=== PATIENT | male | born 1940 | race Caucasian/White ===

== ENCOUNTER 2017-06-22 14:23 | Emergency (ER) | payer MEDICARE, OTHER ==
[2017-06-22 15:12] VITALS: BP 150/56
--- NOTE | 2017-06-22 15:16 | UC ---
Respiratory Complaint HPI - HPI Summary HPI Summary: 77 YEAR OLD MALE WITH A HISTORY OF CHF/SOB/AFIB PRESENTS WITH COMPLAINS OF SEVERE SOB. - History of Current Complaint Chief Complaint: UCRespiratory Stated Complaint: SOB HX COPD CHF Time Seen by Provider: 06/22/17 15:15 Hx Obtained From: Patient Onset/Duration: Sudden Onset Severity Initially: Moderate Severity Currently: Moderate Pain Scale Used: 0-10 Numeric - 5 - Allergies/Home Medications Allergies/Adverse Reactions: Allergies Allergy/AdvReac Type Severity Reaction Status Date / Time No Known Allergies Allergy Verified 06/22/17 15:07 Home Medications: Home Medications Metoprolol Tartrate TAB* [Lopressor TAB*] 50 mg PO DAILY 06/22/17 [History Confirmed 06/22/17] PMH/Surg Hx/FS Hx/Imm Hx Previously Healthy: Yes - Surgical History Surgical History: None - Social History Alcohol Use: None Substance Use Type: None Smoking Status (MU): Former Smoker Review of Systems Constitutional: Negative Skin: Negative Eyes: Negative ENT: Negative Respiratory: Shortness Of Breath Cardiovascular: Negative Gastrointestinal: Negative Genitourinary: Negative Motor: Negative Neurovascular: Negative Musculoskeletal: Negative Neurological: Negative Psychological: Negative All Other Systems Reviewed And Are Negative: Yes Physical Exam Triage Information Reviewed: Yes Appearance: Ill-Appearing Vital Signs: Initial Vital Signs Temp 36.4 C 06/22/17 15:07 Pulse 81 06/22/17 15:07 Resp 17 06/22/17 15:07 BP 150/56 06/22/17 15:07 Pulse Ox 94 06/22/17 15:07 Vital Signs Reviewed: Yes Eye Exam: Normal ENT Exam: Normal Dental Exam: Normal Neck exam: Normal Neck: Positive: 1 Respiratory: Positive: Respiratory distress Cardiovascular Exam: Normal Abdominal Exam: Normal Musculoskeletal Exam: Normal Neurological Exam: Normal Psychological Exam: Normal Skin Exam: Normal UC Diagnostic Evaluation - Laboratory O2 Sat by Pulse Oximetry: 94 Respiratory Course/Dx - Differential Dx/Diagnosis Provider Diagnoses: CHF EXACERBATION Discharge - Discharge Plan Condition: Guarded Disposition: [facility] Patient Education Materials: Heart Failure (ED) Referrals: No Primary Care Phys,NOPCP [Primary Care Provider] - Additional Instructions: PATIENT WILL GO TO [facility] FOR CHF EXACERBATION.
== END 2017-06-22 15:55 | disposition short-term general hospital (02) ==
LOC: UCEAST 14:23
DX: I50.9 Heart failure, unspecified (principal); Z87.891 Personal history of nicotine dependence
CPT/HCPCS: 93005; 99203; G0463

== ENCOUNTER 2017-06-22 16:37 | Inpatient (IN) | payer MEDICARE, OTHER ==
--- NOTE | 2017-06-22 18:10 | RAD ---
INDICATION: Shortness of breath. History of "valve repair" December 2016. COMPARISON: None. TECHNIQUE: Single AP portable view of the chest was obtained. FINDINGS: Image quality is compromised due to the relative inferiority of a portable chest x-ray. There appears to be a prostatic aortic valve in place. There is mild cardiomegaly. There is density obscuring the bilateral lung bases with blunting of the bilateral costophrenic angles. The pulmonary vascular appears engorged and indistinct. Visualized bones are normal for the patient's age. IMPRESSION: Radiographic findings are most indicative of pulmonary edema and vascular congestion possibly with small bibasilar pleural effusions.
[2017-06-22 18:23] LABS: Hematocrit 37 % (42-52); Mean Corpuscular HGB Conc 33 g/dl (31-36); Mean Corpuscular Hemoglobin 26 pg (27-31); Mean Corpuscular Volume 81 fL (80-94); Mean Platelet Volume 9 um3 (7.4-10.4); Red Blood Count 4.55 10^6/ul (4.0-5.4); Red Cell Distribution Width 17 % (10.5-15); White Blood Count 6.4 10^3/ul (3.5-10.8)
[2017-06-22] MEDS ORDERED: Furosemide IV* 10 MG/ML VIAL (40 MG) IV ONE (18:29)
[2017-06-22] MEDS ORDERED: Nitroglycerin 2% OINT* 1 GM PAK TOPICAL ONE (18:29)
[2017-06-22 18:40] LABS: Albumin 3.8 g/dL (3.2-5.2); BUN/Creatinine Ratio 29.7 (8-20); Calcium 9.3 mg/dL (8.6-10.3); EGFR African American 77.4 (>60); EGFR Non-African American 60.2 (>60); Globulin 3.2 g/dL (2-4); Total Bilirubin 0.7 mg/dL (0.2-1.0)
[2017-06-22 18:41] LABS: Troponin I 0.01 ng/mL (<0.04)
[2017-06-22] MEDS ORDERED: Ondansetron INJ* 2 MG/ML VIAL IV PRN (19:15)
[2017-06-22] MEDS ORDERED: Albuterol 2.5 MG/3 ML NEB.SOL* (0.083%) INH PRN (19:15)
[2017-06-22] MEDS ORDERED: Acetaminophen TAB* 325 MG PO PRN (19:15)
[2017-06-22] MEDS ORDERED: Dextrose 50% Syringe 50 ML* 25 GM/50 ML SYRINGE IV PUSH PRN (19:19)
[2017-06-22] MEDS: predniSONE TAB* 20 MG PO SCH (20:23)
[2017-06-22] MEDS ORDERED: Iohexol 350* (CONTRAST) 500 ML MDV IV ONE (20:52)
--- NOTE | 2017-06-22 20:53 | HP ---
HISTORY AND PHYSICAL: DATE OF ADMISSION: 06/22/17 PRIMARY CARE PROVIDER: None. ATTENDING PHYSICIAN WHILE IN THE HOSPITAL: Elijah Smith MD * (reported dictated by Haile Bobo NP). CHIEF COMPLAINT: 1. Shortness of breath. 2. Chest tightness. HISTORY OF PRESENT ILLNESS: Mr. Story is a 77-year-old male patient, who has a history of atrial fibrillation, history of diabetes, hyperlipidemia, hypertension, CHF, and history of COPD. He comes into the ER today stating that the last 2 days he has had constant chest pressure, tightness. He states he has been noticing that he has been more winded with exertion. He states that his legs seem to be a little bit more swollen than the baseline. He states that he has not had any vomiting or diarrhea. He does admit to having a cough off and on. No fevers or chills. He describes his chest tightness not getting any worse with taking a deep breath. He does state that last spring he did undergo a valve repair, he is unsure of which one and he unfortunately got all of medical care in [facility]. He has not established with any providers up here yet, so we are limited in getting medical information. He is a poor historian. He denies any vomiting or diarrhea. Denies any abdominal discomfort, but the patient was concerned today. He came into the ER, he was evaluated, there was concern for possible CHF exacerbations and we were asked to evaluate for admission. PAST MEDICAL HISTORY: Significant for: 1. Atrial fibrillation. 2. COPD. 3. Diabetes. 4. Hypertension. 5. Hyperlipidemia. 6. History of CHF. PAST SURGICAL HISTORY: He has had a valve repair at [facility] and [place], we will try to get those. He has had a tonsillectomy. ALLERGIES TO MEDICATIONS: Include no known drug allergies. HOME MEDICATIONS: Include metoprolol 50 mg daily. FAMILY HISTORY: Mother had a history of heart disease in her 70s and father had a history of heart disease in the 90s. SOCIAL HISTORY: He is a former smoker. He does not drink alcohol. Surrogate decision maker is his . REVIEW OF SYSTEMS: There is no documented fever. He denied having any significant weight change. There was no double vision. He denies having any rhinorrhea. No sore throat. No thyroid enlargement. There was chest pain per my HPI. No orthopnea. There is no nocturnal dyspnea. There is chest discomfort. There is no abdominal pain, no nausea, no vomiting, no dysuria, no frequency. No seizure. No loss of consciousness. No pruritus and no skin ulceration. Review of 14 systems completed, all others negative. PHYSICAL EXAMINATION GENERAL: At this time, Mr. Story is a 77-year-old male patient. He is sitting in the ER stretcher. He does not appear to be in any acute distress. He is awake. He is alert. He is oriented x3. VITAL SIGNS: His blood pressure 183/78, his blood pressure now is noted to be 130/70. His heart rate was 81, respirations 20, O2 saturation 95%, temperature 97.7. HEENT: Head is atraumatic, normocephalic. Eyes: EOMs intact. Sclerae anicteric and not pale. Throat: Oral mucosa appears to be moist. No oropharyngeal erythema. NECK: Supple. LUNGS: He had wheezing noted throughout interestingly. No crackles. No rhonchi. HEART: Sounds S1, S2. Irregularly irregular rate. No murmurs, rubs or gallops. ABDOMEN: Soft, flat, nontender. Bowel sounds present. EXTREMITIES: Pulses 2+ throughout. No peripheral edema. NEUROLOGIC: He is awake, alert, and oriented x3. No gross focal deficits. SKIN: Intact. LABORATORY DATA/DIAGNOSTIC STUDIES: WBC is 6.4, RBC 4.55, hemoglobin 12.0, hematocrit 37, platelet count 216,000. Sodium 138, potassium 4, chloride 104, bicarbonate 27, BUN 35, creatinine 1.18, glucose 126, lactic 0.8, calcium 9.3, total bilirubin 0.7. AST 13, ALT 7, alkaline phosphatase 121. Troponin 0.01. BNP 251, albumin 3.8. He did have a chest x-ray today, impression: Radiographic findings are mostly negative for any edema or vascular congestion, possibly small basilar effusions. The x-ray does show what appears to be aortic valve prosthetic. There are no infiltrates. He did have an EKG obtained today. Unfortunately, I do not have a previous one for comparison. It did show atrial fibrillation, rate 85, no ST elevation or T- wave inversions. Old medical records limited. ASSESSMENT AND PLAN: Mr. Story is a 77-year-old male patient coming into the ER today with complaints of progressive worsening shortness of breath, also in addition to this having chest discomfort over the last 3 days. He was evaluated in the ED, there was concern for congestive heart failure exacerbation. We were asked to evaluate for admission. He will be admitted under observation status for: 1. Shortness of breath. Again, at this point on exam he has a significant amount of wheeze in both lungs. He does have a history of chronic obstructive pulmonary disease. It has been getting progressively worse the last 3 days. I am actually giving him steroids and nebs, he did get a dose of Lasix here in the ED. I am going to check an echo to see what his EF is doing, check his LV function, and I am actually going to put him on nebs, steroids, holding on antibiotics, I am going to check a procalcitonin and he was diuresed down here and we will see how he responds, and we will place him on telemetry. 2. Chest pain. Again, this could be related to the chronic obstructive pulmonary disease exacerbation. Checking a D-dimer, will cycle his troponins. I was going to order a stress test; however, he is wheezing on exam, so I do not think that is a good idea. When he is stable, this could be done outpatient. 3. Atrial fibrillation, he is on Lopressor, we will continue. May need to consider changing the Lopressor to something like Cardizem for rate control; however, we will continue to follow and see how he tolerates. 4. Chronic obstructive pulmonary disease. Again, I think he has an exacerbation. We will put him on nebs, Dulera and steroids. 5. Diabetes. He states he does not take medications for this. I did put him on a sliding scale for the time being. 6. Hypertension. We will continue his metoprolol. 7. Hyperlipidemia, not on any medications at this point. We will monitor. 8. History of congestive heart failure. Again, he did get some Lasix here in the ED. We will see how he responds. 9. DVT prophylaxis. He will be placed on heparin subcu. 10. Code status, full code. 11. Fluids, electrolytes, nutrition. He can have a heart-healthy diet. TIME SPENT: Time spent on this admission was 60 minutes, greater than half time was spent [id number] with the patient obtaining my history and physical, other half of the time was spent going over the plan of care with the patient and implementing the plan of care. I did discuss plan of care with my attending, Dr. Smith, he is in agreement. HAILE BOBO, ROSA [id number]/[facility] #: [id number] ADARSH
[2017-06-22] MEDS: Ferrous Sulfate TAB* 325 MG PO SCH (21:57)
[2017-06-22] MEDS: Heparin VIAL(*) 5000 UNITS/ML VIAL (FIVE THOUSAND) SUBCUT SCH (21:57)
--- NOTE | 2017-06-22 22:29 | RAD ---
INDICATION: Shortness of breath and chest pain COMPARISON: Same day chest x-ray TECHNIQUE: Axial source images were acquired following the administration of 83 mL Omnipaque [address] angiographic technique. Coronal and sagittal reconstructed images were constructed and reviewed. FINDINGS: There there are no filling defects in the pulmonary arteries to indicate acute pulmonary embolic disease. The right mainstem pulmonary artery measures 3.1 cm in diameter, a mildly enlarged measurement. There are mild diffuse centrilobular emphysematous changes. The lungs are otherwise grossly clear. There is a small right-sided pleural effusion. The heart is normal in size. There is trace pericardial effusion. A prostatic aortic valve is noted in position. There is no mediastinal, hilar, or axillary lymphadenopathy. Degenerative changes of the thoracic spine includes loss of intervertebral disc height and anterior marginal osteophyte formation. Limited views of the upper abdomen show no abnormalities. IMPRESSION: 1. No CT of evidence of pulmonary embolism. 2. Small right-sided pleural effusion. 3. Additional chronic, degenerative and iatrogenic findings described in body the report.
[2017-06-22] MEDS: Albuterol/Ipratropium NEB.SOL* Albuterol 2.5 MG/Ipratropium 0.5 MG 3 ML INH SCH (22:57)
[2017-06-22] MEDS: Mometasone/Formoter 200/5 MDI INH SCH (22:57)
[2017-06-23] MEDS ORDERED: hydrALAZINE IV* 20 MG/ML VIAL IV SLOW PU ONE ×2 (00:34→03:00)
[2017-06-23] MEDS: Albuterol/Ipratropium NEB.SOL* Albuterol 2.5 MG/Ipratropium 0.5 MG 3 ML INH SCH ×6 (03:35→23:24)
[2017-06-23 04:39] LABS: Hematocrit 38 % (42-52); Hemoglobin 12.5 g/dl (14.0-18.0); Mean Corpuscular HGB Conc 33 g/dl (31-36); Mean Corpuscular Hemoglobin 26 pg (27-31); Mean Corpuscular Volume 80 fL (80-94); Mean Platelet Volume 9 um3 (7.4-10.4); Red Blood Count 4.76 10^6/ul (4.0-5.4); Red Cell Distribution Width 17 % (10.5-15); White Blood Count 6.5 10^3/ul (3.5-10.8)
[2017-06-23 04:55] LABS: Calcium 9.3 mg/dL (8.6-10.3); EGFR African American 71.8 (>60); EGFR Non-African American 55.8 (>60); Potassium 4.3 mmol/L (3.5-5.0)
[2017-06-23] MEDS: Heparin VIAL(*) 5000 UNITS/ML VIAL (FIVE THOUSAND) SUBCUT SCH ×3 (05:34→21:45)
[2017-06-23] MEDS: Mometasone/Formoter 200/5 MDI INH SCH ×2 (08:24→19:52)
[2017-06-23] MEDS: Insulin LISPRO* 1 UNITS UNIT SUBCUT SCH ×3 (08:36→18:09)
[2017-06-23] MEDS: Aspirin EC Low Dose* 81 MG TAB.EC PO SCH (08:42)
[2017-06-23] MEDS: Calcitriol CAP* 0.25 MCG PO SCH (08:42)
[2017-06-23] MEDS: predniSONE TAB* 20 MG PO SCH (08:43)
[2017-06-23] MEDS: Ferrous Sulfate TAB* 325 MG PO SCH ×3 (08:43→21:45)
[2017-06-23] MEDS: Isosorbide Mononitrate ER TAB* 60 MG PO SCH (08:43)
[2017-06-23] MEDS: CMCS: Epleronone (NF) 25 MG TAB PO SCH (08:43)
[2017-06-23] MEDS: Furosemide TAB* 40 MG PO SCH ×2 (08:43→15:35)
[2017-06-23] MEDS: Atorvastatin* 10 MG TAB PO SCH (08:43)
[2017-06-23] MEDS: Metoprolol Tartrate TAB* 50 mg PO SCH (08:44)
[2017-06-23] MEDS ORDERED: Perflutren Lipid Microsphere* 3 ML VIAL ONE (10:42)
--- NOTE | 2017-06-23 12:47 | PN ---
Subjective Date of Service: 06/23/17 Interval History: Patient seen this morning. Reports feeling fairly in terms of breathing at the moment, however, states he had some episodes overnight where it was difficult to breathe. He reports his LE swelling is a bit worse than normal but not by much. Is not sure what medications he is on at home, says his is bringing them in. Just moved to [place] in April and has upcoming appts but has not yet established with physicians in the area. Says he has O2 at home and uses it as needed, has needed it ATC in the past. Family History: Unchanged from Admission Social History: Unchanged from Admission Past Medical History: Unchanged from Admission Objective Active Medications: Acetaminophen (Tylenol Tab*) 650 mg PO Q4H PRN Albuterol (Ventolin 2.5 Mg/3 Ml Neb.Amber*) 2.5 mg INH Q4H PRN Albuterol/Ipratropium (Duoneb (Albuterol 2.5 Mg/Ipratropium 0.5 Mg)) 1 neb INH [id number] AWAKE [facility] Aspirin (Aspirin Ec Low Dose*) 81 mg PO DAILY [facility] Atorvastatin Calcium (Lipitor*) 10 mg PO DAILY [facility] Calcitriol (Rocaltrol Cap*) 0.25 mcg PO DAILY [facility] Dextrose (D50w Syringe 50 Ml*) 12.5 gm IV PUSH .FOR FS < 60 - SS PRN Eplerenone (Inspra (Nf)) 25 mg PO DAILY [facility] Ferrous Sulfate (Ferrous Sulfate Tab*) 325 mg PO TID [facility] Furosemide (Lasix Tab*) 40 mg PO 0800,1600 [facility] Heparin Sodium (Porcine) (Heparin Vial(*)) 5,000 units SUBCUT Q8HR [facility] Insulin Human Lispro (Humalog*) 0 units SUBCUT AC [facility] Isosorbide Mononitrate (Imdur Er Tab*) 120 mg PO DAILY [facility] Metoprolol Tartrate (Lopressor Tab*) 50 mg PO DAILY [facility] Mometasone Furoate/Formoterol Fumar (Dulera 200/5 Mdi*) 2 puff INH BID [facility] Ondansetron HCl (Zofran Inj*) 4 mg IV Q6H PRN Prednisone (Deltasone Tab*) 40 mg PO DAILY WITH MEAL [facility] Vital Signs 06/22/17 06/22/17 06/22/17 19:56 23:01 23:02 Temperature 97.8 F Pulse Rate 85 82 Respiratory 18 20 Rate Blood Pressure 146/53 (mmHg) O2 Sat by Pulse 96 98 98 Oximetry 06/22/17 06/23/17 06/23/17 23:37 02:38 02:46 Temperature 97.7 F 98.1 F Pulse Rate 85 102 Respiratory 20 22 Rate Blood Pressure 182/78 180/59 182/70 (mmHg) O2 Sat by Pulse 97 95 Oximetry 06/23/17 12:06 Temperature 97.9 F Pulse Rate 79 Respiratory 20 Rate Blood Pressure 140/59 (mmHg) O2 Sat by Pulse 95 Oximetry Oxygen Devices in Use Now: Nasal Cannula - 2L Appearance: Elderly, M, sitting in bed in NAD Eyes: No Scleral Icterus Ears/Nose/Mouth/Throat: Mucous Membranes Moist Neck: NL Appearance and Movements; NL JVP Respiratory: Symmetrical Chest Expansion and Respiratory Effort, - - Wheezing in lower lung haji, L>R, do not appreciate much rales Cardiovascular: RRR, - - RICK Abdominal: NL Sounds; No Tenderness; No Distention Lymphatic: No Cervical Adenopathy Extremities: - - B/L LE ankle edema Skin: No Rash or Ulcers Neurological: Alert and Oriented x 3 Result Diagrams: 06/23/17 04:22 06/23/17 04:22 Microbiology and Other Data: Microbiology 06/22/17 20:25 Legionella Urinary Antigen - Final Urine Negative Legionella Streptococcus pneumoniae Ag Screen - Final Negative S. pneumo Antigen Assess/Plan/Problems-Billing Assessment: COPD exacerbation in a 77 yo M with hx of HTN, HLD, AFib, COPD, ?CHF, ?valve repair - Patient Problems (1) COPD exacerbation Current Visit: Yes Comment: Suspect this is the cause of the SOB, not CHF exacerbation. Continue PO Prednisone, nebs, dulera. Wean O2 as able. (2) Chest pain Current Visit: Yes Comment: Trops negative x 3, may benefit from outpatient stress test (3) Afib Current Visit: Yes Comment: Continue Metoprolol. Unclear if patient is on AC, will check meds once brings them in (4) CHF (congestive heart failure) Current Visit: Yes Comment: Echo pending. Does not seem to be in an exacerbation, received IV Lasix in the ED. For now continue Metoprolol, PO Lasix , Imdur, Eplerenone (5) DVT prophylaxis Current Visit: Yes Comment: HSQ
--- NOTE | 2017-06-23 17:44 | ECHO ---
Patient: JAYA RODRIGUES [facility] Rec#: [id number] : 1940 Date: 06/23/2017 Age: 77y Height: 182.88 cm / 72.0 in Weight: 104.33 kg / 229.9 lbs Sex: M BSA: 2.26 Room#: 433 Admit Date#: 06/22/2017 Type: Inpatient Referring: Elijah Smith MD Reading: Emil Garcia DO Powertrain Control Systems Engineer: Yuki Rodriguez [facility] Transthoracic Echocardiogram Indication: SOB/CHF BP: 151/61 HR: 75 Rhythm: NSR Findings History: A-fib,COPD,DM,HTN,CHF,? aortic valve replacement/?repair( procedure done in a [facility] hospital no info in chart) Technical Comments: The study is technically difficult. Definity used for image enhancement. The study is technically limited due to patient body habitus. The study is technically limited due to the patient's history of COPD. Left Ventricle: The left ventricular chamber size is mildly dilated. Mild concentric left ventricular hypertrophy is observed. There is normal left ventricular systolic function. The estimated ejection fraction is greater than 65%. The assessment of diastolic function is non-diagnostic. Left Atrium: The left atrium is moderately dilated. Right Ventricle: Moderator Band present. The right ventricular cavity size is normal. The right ventricular global systolic function is mildly reduced. Right Atrium: The right atrium is mildly dilated. Aortic Valve: A bio-prosthetic aortic valve is present. by history that is not well visualized. The bio-prosthetic aortic valve appears to be functioning normally. Mitral Valve: The mitral valve leaflets are moderately thickened.calcified chordae tendinae and mildly calcified mitral annulus and mitral leaflets. There is mild mitral regurgitation. There is no evidence of mitral stenosis. Tricuspid Valve: The tricuspid valve leaflets are normal. There is no evidence of tricuspid valve regurgitation. Unable to estimate the right ventricular systolic pressure. There is no tricuspid stenosis. Pulmonic Valve: The pulmonic valve appears normal. There is no evidence of pulmonic regurgitation. There is no pulmonic stenosis. Pericardium: There is no significant pericardial effusion. Aorta: There is no dilatation of the ascending aorta. The aortic arch is not well visualized. The aortic root is not well visualized. Pulmonary Artery: The main pulmonary artery appears normal. Venous: The venous system is not well visualized. Contrast: Definity was used to optimize study. 4ml used. Intravenous contrast was used to enhance endocardial border definition. Conclusions The study is technically difficult. Definity used for image enhancement. The left ventricular chamber size is mildly dilated. Mild concentric left ventricular hypertrophy is observed. There is normal left ventricular systolic function. The estimated ejection fraction is greater than 65%. The left atrium is moderately dilated. The right ventricular cavity size is normal. The right ventricular global systolic function is mildly reduced. A bio-prosthetic aortic valve is present by history that is not well visualized. Based on doppler evaluation there is no significant bioprosthetic dysfunction. Unable to estimate the right ventricular systolic pressure. No prior studies available for comparison at time of interpretation. Measurements Name Value Normal Range RVIDd (AP) 2D 2.9 cm (0.9 - 2.6) RVDdMajor (2D) 3.4 cm (2.2 - 4.4) RAd ISD 4CH 6.7 cm (3.4 - 4.9) RA (A4C)W 4.1 cm (2.9 - 4.6) IVSd (2D) 1.1 cm (0.6 - 1) LVPWd (2D) 1.2 cm (0.6 - 1) LVIDd (2D) 5.9 cm (3.6 - 5.4) LVIDs (2D) 4.3 cm - LV FS (2D) 27 % (25 - 45) Aortic Annulus 1.9 cm (1.4 - 2.6) Ao root diameter (2D) 3.1 cm (2.1 - 3.5) LA dimension (AP) 2D 4.5 cm (2.3 - 3.8) LAd ISD 4CH 6.1 cm (2.9 - 5.3) LA ISD 4CH W 4.9 cm (2.5 - 4.5) Name Value Normal Range LA ESV SP 4CH (A/L) 118 ml - LA ESV SP 2CH (A/L) 36 ml - LA ESV BP (A/L) 76 ml - LA ESV BP (A/L) index 33.81 ml/m2 - LA ESV SP 4CH (MOD) 103 ml - LA ESV SP 2CH (MOD) 36 ml - Name Value Normal Range MV E-wave Vmax 1.4 m/sec - MV deceleration time 264 msec - MV A-wave Vmax 0.4 m/sec - MV E:A ratio 3.89 ratio - LV septal e' Vmax 0.07 m/sec - LV lateral e' Vmax 0.07 m/sec - LV E:e' septal ratio 20 ratio - LV E:e' lateral ratio 20 ratio - Name Value Normal Range AV Vmax 2.5 m/sec - AV VTI 51.7 cm - AV peak gradient 24.94 mmHg - AV mean gradient 11.67 mmHg - LVOT diameter 2.1 cm - LVOT Vmax 1.2 m/sec - LVOT VTI 28.3 cm - LVOT peak gradient 6.15 mmHg - LVOT mean gradient 3.59 mmHg - SV LVOT 94 ml - LUBNA (continuity Vmax) 1.7 cm2 - LUBNA (continuity VTI) 1.9 cm2 - Name Value Normal Range PV Vmax 1.1 m/sec - PV peak gradient 4.55 mmHg -
[2017-06-24] MEDS: Albuterol/Ipratropium NEB.SOL* Albuterol 2.5 MG/Ipratropium 0.5 MG 3 ML INH SCH ×2 (03:30→07:23)
[2017-06-24] MEDS: Heparin VIAL(*) 5000 UNITS/ML VIAL (FIVE THOUSAND) SUBCUT SCH (05:37)
[2017-06-24] MEDS: Mometasone/Formoter 200/5 MDI INH SCH (07:25)
[2017-06-24] MEDS: Insulin LISPRO* 1 UNITS UNIT SUBCUT SCH ×3 (08:33→17:54)
[2017-06-24] MEDS: Metoprolol Tartrate TAB* 50 mg PO SCH (08:35)
[2017-06-24] MEDS: Aspirin EC Low Dose* 81 MG TAB.EC PO SCH (08:35)
[2017-06-24] MEDS: Furosemide TAB* 20 MG PO SCH ×2 (08:35→17:54)
[2017-06-24] MEDS: CMCS: Epleronone (NF) 25 MG TAB PO SCH (08:36)
[2017-06-24] MEDS: Isosorbide Mononitrate ER TAB* 60 MG PO SCH (08:37)
[2017-06-24] MEDS: predniSONE TAB* 20 MG PO SCH (08:37)
[2017-06-24] MEDS: Ferrous Sulfate TAB* 325 MG PO SCH ×2 (08:38→13:45)
[2017-06-24] MEDS: Calcitriol CAP* 0.25 MCG PO SCH (08:38)
[2017-06-24] MEDS: Atorvastatin* 10 MG TAB PO SCH (08:38)
--- NOTE | 2017-06-24 08:42 | DCNOTE ---
Patient seen this morning. Reports breathing is stable, ready for discharge. Feels he has clarified his med list. On exam, good air movement B/L, no wheezing, trace rales in B/L LEs Discharge home today with prednisone. Patient has upcoming PCP appts.
[2017-06-24] MEDS ORDERED: Apixaban* 5 MG TAB PO SCH (09:00)
--- NOTE | 2017-06-24 11:17 | ED ---
Guillermo Colbert Nilda, scribed for Get Agrawal MD on 06/22/17 at 1752 . Shortness of Breath - HPI Summary HPI Summary: This patient is a 77 year old M BIBA presenting to [facility] accompanied by with a chief complaint of SOB (chest tightness) since a couple days ago. The patient rates the pain 0/10 in severity. Symptoms aggravated by movement and recumbent position. Symptoms alleviated by nothing. Patient reports SAUCEDO, non- productive cough, and lightheadedness. Patient denies loss of appetite, fever, and dizziness. Patient is a former smoker. PMHx includes CHF, COPD, and fluid in the lungs. He usually sleeps with 2 pillows. - History of Current Complaint Chief Complaint: EDShortnessOfBreath Time Seen by Provider: 06/22/17 17:02 Hx Obtained From: Patient Onset/Duration: Sudden Onset, Lasting Days, Still Present Aggrevating Factors: Movement, Recumbent Position Alleviating Factors: Nothing Associated Signs & Symptoms: Cough (Nonproductive), Edema - Allergy/Home Medications Allergies/Adverse Reactions: Allergies Allergy/AdvReac Type Severity Reaction Status Date / Time No Known Allergies Allergy Verified 06/22/17 15:07 Home Medications: Home Medications Albuterol 2.5MG/3ML (0.083%)* [Ventolin 2.5 MG/3 ML NEB.ALBINA*] 2.5 mg NEB Q8HR PRN 06/22/17 [History Confirmed 06/22/17] Aspirin [Varun Aspirin EC Low Dose 81 MG] 81 mg PO DAILY 06/22/17 [History Confirmed 06/22/17] Budesonide/Formote 80/4.5(NF) [Symbicort 80/4.5 (NF)] 2 puff INH BID 06/22/17 [ History Confirmed 06/22/17] Calcitriol [Rocaltrol] 0.25 mcg PO DAILY 06/22/17 [History Confirmed 06/22/17] Eplerenone [Inspra] 25 mg PO DAILY 06/22/17 [History Confirmed 06/22/17] Ergocalciferol CAP* [Drisdol CAP*] 1 cap PO WEEKLY 06/22/17 [History Confirmed 06/22/17] Ferrous Sulfate [Fe Tabs] 325 mg PO TID 06/22/17 [History Confirmed 06/22/17] Furosemide TAB* [Lasix TAB*] 40 mg PO BID 06/22/17 [History Confirmed 06/22/17] Isosorbide Mononitrate ER TAB* [Imdur ER TAB*] 120 mg PO DAILY 06/22/17 [ History Confirmed 06/22/17] Simvastatin TAB(NF) [Zocor 20 MG (NF)] 20 mg PO DAILY 06/22/17 [History Confirmed 06/22/17] Tiotropium CAP.INH* [Spiriva CAP.INH*] 1 cap.inh INH DAILY 06/22/17 [History Confirmed 06/22/17] oxyCODONE/Acetamin 5/325 MG* [Percocet 5/325 TAB*] 1 tab PO Q6HR PRN 06/22/17 [ History Confirmed 06/22/17] PMH/Surg Hx/FS Hx/Imm Hx Cardiovascular History: Reports: Hx Congestive Heart Failure, Hx Hypertension Respiratory History: Reports: Hx Asthma, Hx Chronic Obstructive Pulmonary Disease (COPD) Infectious Disease History: Yes Infectious Disease History: Denies: Traveled Outside the [place] in Last 30 Days - Family History Known Family History: Positive: Diabetes Negative: Hypertension - Social History Alcohol Use: None Substance Use Type: Reports: None Smoking Status (MU): Former Smoker Review of Systems Negative: Fever, Chills Negative: Erythema Negative: Sore Throat Positive: Chest Pain - chest tightness Positive: Shortness Of Breath, Cough, Other - SAUCEDO Positive: Other - negative loss of appetite. Negative: Abdominal Pain, Vomiting , Nausea Negative: dysuria, hematuria Negative: Myalgia, Edema Negative: Rash Neurological: Other - lightheadedness; negative dizziness All Other Systems Reviewed And Are Negative: Yes Physical Exam - Summary Physical Exam Summary: Constitutional: Well-developed, Well-nourished, Alert. (-) Distressed Skin: Warm, Dry HENT: Normocephalic; Atraumatic Eyes: Conjunctiva normal Neck: Musculoskeletal ROM normal neck. (-) JVD, (-) Stridor, (-) Tracheal deviation Cardio: Rhythm regular, rate normal, Heart sounds normal; Intact distal pulses; The pedal pulses are 2+ and symmetric. Radial pulses are 2+ and symmetric. (-) Murmur Pulmonary/Chest wall: Diminished breath sounds, (-) Rales, Wheezing (mild expiratory) Abd: Soft, (-) Tenderness, (-) Distension, (-) Guarding, (-) Rebound Musculoskeletal: trace Edema Lymph: (-) Cervical adenopathy Neuro: Alert, Oriented x3 Psych: Mood and affect Normal Triage Information Reviewed: Yes Vital Signs On Initial Exam: Initial Vitals BP 191/74 06/22/17 16:47 Vital Signs Reviewed: Yes - Metter Coma Scale Coma Scale Total: 15 Diagnostics - Vital Signs Vital Signs Temp Pulse Resp BP Pulse Ox 06/22/17 16:55 18 06/22/17 16:52 97.7 F 81 18 191/74 95 06/22/17 16:48 77 92 06/22/17 16:47 191/74 - Laboratory Result Diagrams: 06/22/17 18:00 06/22/17 18:00 Lab Statement: Any lab studies that have been ordered have been reviewed, and results considered in the medical decision making process. - Radiology CXR Radiology Interpretation Completed By: Radiologist - Radiographic findings are most indicative of pulmonary edema and vascular congestion possibly with small bibasilar pleural effusions. ED physician has reviewed this radiology report and agrees. - CT CTA Chest CT Interpretation Completed By: Radiologist - 1. no CT of evidence of pulmonary embolism. 2. Small right-sided pleural effusion. 3. Additional chronic, degenerative and iatrogenic findings describe in body report. ED physician reviewed this report and agrees. - EKG 1806 Cardiac Rate: NL - 85 bpm EKG Rhythm: Atrial Fibrillation EKG Interpretation: No STEMI Course/Dx - Course Course Of Treatment: This patient is a 77 year old M BIBA presenting to [facility] accompanied by with a chief complaint of SOB (chest tightness) since a couple days ago. The patient rates the pain 0/10 in severity. Symptoms aggravated by movement and recumbent position. Symptoms alleviated by nothing. Patient reports SAUCEDO, non-productive cough, and lightheadedness. Patient denies loss of appetite, fever, and dizziness. Patient is a former smoker. PMHx includes CHF, COPD, and fluid in the lungs. He usually sleeps with 2 pillows. EKG reveals 85 bpm, A-Fib, No STEMI. CXR, per radiologist reveals radiographic findings are most indicative of pulmonary edema and vascular congestion possible with small bibasilar pleural effusions. ED physician reviewed this radiology report and agrees. CTA Chest, per radiologist reveals: 1. no CT of evidence of pulmonary embolism. 2. Small right-sided pleural effusion. 3. Additional chronic, degenerative and iatrogenic findings describe in body report. ED physician reviewed this report and agrees. Dr. Abel ( hospitalist) will admit patient for CHF exacerbation. - Diagnoses Provider Diagnoses: CHF exacerbation - Physician Notifications Discussed Care of Patient With: Haile Abel - Hospitalist Time Discussed With Above Provider: 19:12 Instructed by Provider To: Admit As Inpatient Discharge - Discharge Plan Condition: Stable Disposition: ADMITTED TO [facility] The documentation as recorded by the Guillermo calderón Nilda accurately reflects the service I personally performed and the decisions made by , Get Agrawal MD.
[2017-06-24 12:38] VITALS: BP 131/48
--- NOTE | 2017-06-25 02:59 | DS ---
CC: Ms. Santiago Harris * DISCHARGE SUMMARY: DATE OF ADMISSION: 06/22/17 DATE OF DISCHARGE: 06/24/17 PRIMARY CARE PHYSICIAN: Ms. Santiago Harris PRINCIPAL DISCHARGE DIAGNOSIS: Chronic obstructive pulmonary disease exacerbation. SECONDARY DIAGNOSES: 1. History of atrial fibrillation, on Eliquis. 2. Chronic obstructive pulmonary disease, on home oxygen. 3. Diabetes. 4. Hypertension. 5. History of congestive heart failure. 6. Aortic stenosis, status post TAVR with a bioprosthetic valve. DISCHARGE MEDICATION REGIMEN: 1. Apixaban 5 mg by mouth 3 times daily. 2. Symbicort 2 puffs inhaled 3 times daily. 3. Lasix 60 mg by mouth 2 times daily. 4. Lisinopril 10 mg by mouth daily. 5. Prednisone 40 mg by mouth daily. 6. Spiriva 1 capsule inhaled daily. 7. Percocet 5/325 one tablet by mouth every 6 hours as needed for pain. 8. Simvastatin 20 mg by mouth daily. 9. Calcitriol 0.25 mcg by mouth daily. 10. 25 mg by mouth daily. 11. Ergocalciferol 1 capsule by mouth weekly. 12. Aspirin 81 mg by mouth daily. 13. Albuterol 2.5 mg inhaled every 8 hours as needed for shortness of breath and wheezing. 14. Toprol-XL 50 mg by mouth daily. 15. Ferrous sulfate 325 mg by mouth daily. 16. Laxative, Spirulina 1 tablet by mouth daily. STUDIES DONE DURING HOSPITALIZATION: Chest x-ray, impression: Radiographic findings most indicative of pulmonary edema and vascular congestion, possibly with small bibasilar pleural effusions. Transthoracic echocardiogram, conclusion: Study is technically difficult, definitive use for image enhancement. Left ventricular chamber size is mildly dilated, mild concentric LVH is observed. There is normal left ventricular systolic function. Estimated ejection fraction greater than 65%. Left atrium is moderately dilated. The right ventricular cavity size is normal. The right ventricular global systolic function is mildly reduced. Bioprosthetic aortic valve is present by history that is not well visualized. The patient's Doppler evaluation: There is no significant bioprosthetic dysfunction, unable to estimate the right ventricular systolic pressure. No prior studies available for comparison at this time. CTA of the chest, impression: No CT evidence of pulmonary embolism. Small right- sided pleural effusion. Additional chronic degenerative and iatrogenic finding as described in the body of the report. HISTORY OF PRESENT ILLNESS AND HOSPITAL SUMMARY: Please see the full history and physical by Haile Abel NP for full details. Briefly, Mr. Story is a 77 -year- old male with a past medical history as above, who presented to the hospital with progressive shortness of breath, dyspnea on exertion and possibly some worsening lower extremity edema. The patient just moved to the area recently, unfortunately we do not have many medical records on file, but he did undergo a TAVR earlier this year in a hospital in [facility]. Based on the patient's presentation, it was felt that the symptoms were most likely due to COPD exacerbation rather than CHF exacerbation. He did receive dose of Lasix in the emergency department with improvement in his mildly worsened lower extremity edema the following day. He was treated with steroids and nebulizers with improvement in his breathing over the following days. There was some confusion over the patient's home medications as he had 2 lists of medications that were not similar. One of them indicated that he was on triple therapy of aspirin, Plavix and Eliquis. At this time, he states he would prefer to hold the Plavix. After our discussion, he will contact his children's author to determine if he should be on all 3 of these medications. He will be discharged home with a few additional days of prednisone and has a new PCP appointment in a few days. TIME SPENT: Total time spent on this discharge was 45 minutes. This is a summary of hospitalization. Please see the full medical record for further details. [id number]/CPS #: [id number] MTDD
== END 2017-06-24 18:10 | disposition home or self-care (01) | DRG 192 ==
LOC: ED 16:37 → MEDTELE 19:12 → OBSVTOIN 19:12 → INTOOBSV 19:12 → OBSVTOIN 06-23 09:30
PROVIDERS: ADMIT Internal Medicine; ATTEND Hospitalist
DX: J44.1 Chronic obstructive pulmonary disease with (acute) exacerbation (principal); I11.0 Hypertensive heart disease with heart failure; I50.9 Heart failure, unspecified; Z99.81 Dependence on supplemental oxygen; I48.91 Unspecified atrial fibrillation; E11.9 Type 2 diabetes mellitus without complications; E78.5 Hyperlipidemia, unspecified; R07.9 Chest pain, unspecified; Z79.899 Other long term (current) drug therapy; Z79.01 Long term (current) use of anticoagulants; Z95.2 Presence of prosthetic heart valve; Z82.49 Family history of ischemic heart disease and other diseases of the circulatory system; Z87.891 Personal history of nicotine dependence
CPT/HCPCS: 36415; 71010; 71275; 80048; 80053; 83605; 83880; 84145; 84484; 85025; 85379; 87040; 87070; 87077; 87205; 87899; 93005; 93306; 94640; 94760; 99203; A9270-GY; C8929; G0463; J0360; J1644; J1940; J7512; Q9967

== ENCOUNTER 2017-09-17 11:45 | Inpatient (IN) | payer MEDICARE, OTHER ==
--- OUTSIDE RECORDS SUMMARY | 2017-09-17 13:26 | XMS REPORT ---
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 [employer]IC Primary Care Physician Unavailable Payers Type Date Identification Numbers Payment Provider Subscriber Medicare Primary Policy Number: [id number] Medicare Jaya Story PayID: [id number] [address] [place] [address] [employer] Policy Number: [id number] [employer] Jaya Story PayID: [id number] [address] [place] [address] Problems Description No Information Family History Date Family Member(s) Problem(s) Comments Father due to old age () - AT AGE 95 Father Heart Disease Mother Heart Disease Mother due to Heart Disease () - at age 82 First Sister 72 First Sister Diabetes Type II First Sister Hypercholesterolemia Social History Type Date Description Comments Marital Status Lives With Occupation Retired 2008 Cigarette Use Former Cigarette Smoker Smoked for 50 years ETOH Use Has consumed alcohol in the Quit 2012 past Smoking Patient is a former smoker Recreational Drug Use Denies Drug Use Daily Caffeine Consumes on average 1 cup of regular coffee per day Exercise Type/Frequency Does not exercise General Hx Text Do you follow a special diet? Low sat Do you have problems with snoring, day time fatigue? Uses Oxygen 2L via NC continuous. Day time fatigue - Yes Allergies, Adverse Reactions, Alerts Date Description Reaction Status Severity Comments 06/29/2017 NKDA active Medications Medication Date Status Form Strength Qnty SIG Indications Ordering Provider Prednisone 08/31/ Active Tablets 10mg 30tab 10 mg daily J44.1 Radha 2016 s MD Sandy Lisinopril 08/24/ Active Tablets 5mg 90tab 1 by mouth Emil Kurtz s every day Garcia, DO FAC Lasix 08/24/ Active Tablets 20mg 60tab 1 by mouth Emil Kurtz s twice daily Garcia, DO FAC Eliquis 07/12/ Active Tablets 5mg 180ta 1 by mouth I48.91 Emil Kurtz bs twice a day Garcia, DO [facility] Atorvastatin 07/12/ Active Tablets 40mg 90tab 1 by mouth Z95.2 Emil Solano Calcium 2016 s every day Garcia, DO [facility] Oxycodone-Acetam / Active Tablets 5-325mg 1-2 tabs by Unknown inophen 0000 mouth every 4-6 hours as needed for pain Calcitriol / Active Capsules 0.25mcg 1 by mouth Unknown 0000 every day Aspirin Adult / Active Tablets DR 81mg 1 by mouth Unknown Low Dose 0000 every day Metoprolol / Active Tablets ER 50mg 90tab 1 by mouth Emil Solano Succinate ER 0000 24HR s every day Garcia, DO [facility] Ferrous Sulfate / Active Tablets 325mg 1 by mouth Unknown 0000 every day Symbicort / Active Aerosol 80-4.5mcg 2 puff Unknown 0000 /Act twice a day Ergocalciferol / Active [id number] weekly Unknown 0000 Albuterol / Active Nebulizer (2.5mg/3M 1 vial via Unknown Sulfate 0000 L) 0.083% nebulizer 3 times daily as needed Prednisone 08/24/ Hx Tablets 10mg 45tab Take one Emil Kurtz - s tablet by Jose, 08/31/ mouth daily DO [facility] 2017 Eliquis / Hx Tablets 5mg 1 by mouth Unknown 0000 - twice a day 2016 Simvastatin / Hx Tablets 20mg 1 by mouth Z95.2 Unknown 0000 - every day 2016 Inspra / Hx Tablets 25mg 1 by mouth Unknown 0000 - every day 2016 Furosemide / Hx Tablets 80mg bid Unknown 0000 - 2016 Lisinopril / Hx Tablets 10mg 1 by mouth Unknown 0000 - every day 2016 Prednisone / Hx TBPK 10mg (48) 40mg by Unknown 0000 - mouth on 06/19/172016 tapering by 10mg every day until gone Lasix / Hx Tablets 40mg 1 / Unknown 0000 - tablets (60mg) by 2017 mouth twice a day Spiriva / Hx Capsules 18mcg 1 unit Unknown Handihaler 0000 - inhalation 2016 Spirulina / Hx 1 tablet Unknown 0000 - daily 2016 Eplerenone / Hx Tablets 25mg 1 by mouth Unknown 0000 - every day 2016 Immunizations CPT Code Status Date Vaccine Reaction Lot # [id number] Given 06/29/2017 Influenza Virus Vaccine, no immediate reaction, [id number] Quadrivalent, Split, pt tolerated well Preservative Free Vital Signs Date Vital Result Comment 08/31/2017 Height 72 inches 6'0" Weight 236.00 lb Heart Rate 76 /min BP Systolic Sitting 112 mmHg BP Diastolic Sitting 68 mmHg Respiratory Rate 14 /min O2 % BldC Oximetry 95 % on 3L BMI (Body Mass Index) 32.0 kg/m2 08/24/2017 Height 72 inches 6'0" Weight 231.00 lb with shoes Heart Rate 104 /min irreg BP Systolic Sitting 128 mmHg Rue large cuff BP Diastolic Sitting 62 mmHg Rue large cuff BP Systolic Standing 122 mmHg Rue BP Diastolic Standing 60 mmHg Rue Respiratory Rate 20 /min BMI (Body Mass Index) 31.3 kg/m2 Ejection Fraction 65% 06/23/17 07/12/2017 Height 72 inches 6'0" Weight 228.00 lb with shoes Heart Rate 80 /min BP Systolic 140 mmHg Rue lrg cuff BP Diastolic 60 mmHg Rue lrg cuff BP Systolic Sitting 136 mmHg Lue lrg cuff BP Diastolic Sitting 58 mmHg Lue lrg cuff BP Systolic Standing 132 mmHg Lue lrg cuff BP Diastolic Standing 58 mmHg Lue lrg cuff Respiratory Rate 15 /min BMI (Body Mass Index) 30.9 kg/m2 Ejection Fraction >65% 06/22/2017-echo 07/11/2017 Height 72 inches 6'0" Weight 227.00 lb Heart Rate 84 /min BP Systolic Sitting 96 mmHg BP Diastolic Sitting 52 mmHg Respiratory Rate 14 /min O2 % BldC Oximetry 97 % on 3L BMI (Body Mass Index) 30.8 kg/m2 Neck Circumference in inches 21.5 06/29/2017 Heart Rate 82 /min 06/29/2017 Height 72 inches 6'0" Weight 228.38 lb Heart Rate 107 /min BP Systolic 152 mmHg BP Diastolic 78 mmHg Body Temperature 97.8 F O2 % BldC Oximetry 95 % BMI (Body Mass Index) 31.0 kg/m2 Results Test Date Test Result H/L Range Note Laboratory test 07/17/2017 B-Type Natriuretic 178 pg/mL High 1 finding Peptide BNP CBC Auto Diff 07/17/2017 White Blood Count 7.6 10^3/uL 3.5-10.8 Red Blood Count 4.16 10^6/uL 4.0-5.4 Hemoglobin 11.2 g/dL Low 14.0-18.0 Hematocrit 34 % Low 42-52 Mean Corpuscular Volume 82 fL 80-94 Mean Corpuscular Hemoglobin 27 pg 27-31 Mean Corpuscular HGB Conc 33 g/dL 31-36 Red Cell Distribution Width 17 % High 10.5-15 Platelet Count 229 10^3/uL 150-450 Mean Platelet Volume 9 um3 7.4-10.4 Abs Neutrophils 5.4 10^3/uL 1.5-7.7 Abs Lymphocytes 1.0 10^3/uL 1.0-4.8 Abs Monocytes 0.7 10^3/uL 0-0.8 Abs Eosinophils 0.4 10^3/uL 0-0.6 Abs Basophils 0.1 10^3/uL 0-0.2 Abs Nucleated RBC 0 10^3/uL Granulocyte % 70.5 % 38-83 Lymphocyte % 13.7 % Low 25-47 Monocyte % 9.6 % High 1-9 Eosinophil % 4.9 % 0-6 Basophil % 1.3 % 0-2 Nucleated Red Blood Cells % 0 Inr/Protime 07/17/2017 Inr 1.24 High 0.89-1.11 Laboratory test finding 07/17/2017 Partial Thrombo Time 35.0 seconds 26.0 -36.3 PTT D Dimer Quantitative 241 ng/mL High Less Than 230 2 Lactic Acid 1.4 mmol/L 0.5-2.0 3 Comp Metabolic Panel 07/17/2017 Sodium 138 mmol/L 133-145 Chloride 99 mmol/L Low 101-111 Co2 Carbon Dioxide 30 mmol/L 22-32 Glucose 125 mg/dL High 70-100 Blood Urea Nitrogen 73 mg/dL High 6-24 Creatinine 2.44 mg/dL High 0.67-1.17 BUN/Creatinine Ratio 29.9 High 8-20 Calcium 9.2 mg/dL 8.6-10.3 Total Protein 7.1 g/dL 6.4-8.9 Albumin 3.7 g/dL 3.2-5.2 Globulin 3.4 g/dL 2-4 Albumin/Globulin Ratio 1.1 1-3 Total Bilirubin 0.40 mg/dL 0.2-1.0 Alkaline Phosphatase 99 U/L 34-104 Alt 6 U/L Low 7-52 Ast 9 U/L Low 13-39 Egfr Non- 26.0 >60 Egfr 33.5 >60 4 Potassium 5.2 mmol/L High 3.5-5.0 Anion Gap 9 mmol/L 2-11 Laboratory test finding 07/17/2017 Magnesium 2.1 mg/dL 1.9-2.7 Lipase 28 U/L 11.0-82.0 Creatine Kinase(CK) 31 U/L 10-223 C Reactive Protein 23.94 mg/L High < 5.00 5 Troponin-I (TnI) 0.01 ng/mL <0.04 CKMB 07/17/2017 CKMB ng/mL 1.0 ng/mL 0.6-6.3 Laboratory test finding 07/17/2017 TSH (Thyroid Stim Horm) 3.13 mcIU/mL 0.34-5.60 Procalcitonin 0.6 ng/mL High <0.6 6 Blood Culture SEE RESULT BELOW 7 1 >100 to <200 pg/mL: likely compensated congestive heart failure (CHF) 200 to 400 pg/mL: likely moderate CHF >400 pg/mL: likely moderate to severe CHF 2 Please note: The following may produce a false positive D Dimer test: - Rheumatoid factor greater than 60 IU/ml - Plasma hemoglobin greater than 0.05 gm/dl - Bilirubin greater than 50 mg/dl - Lipids greater than 1000 mg/dl - FDP greater than 20 ug/ml 3 [facility] Severe Sepsis and Septic Shock Management Bundle Measure requires all lactic acids initially measuring >2.0 mmol/L be repeated. 4 Because ethnic data is not always readily available, this report includes an eGFR for both -Americans and non- Americans. The National Kidney Disease Education Program (NKDEP) does not endorse the use of the MDRD equation for patients that are not between the ages of 18 and 70, are , have extremes of body size, muscle mass, or nutritional status, or are non- or non-. According to the National Kidney Foundation, irrespective of diagnosis, the stage of the disease is based on the level of kidney function: Stage Description GFR(mL/min/1.73 m(2)) 1 Kidney damage with normal or decreased GFR 90 2 Kidney damage with mild decrease in GFR 60-89 3 Moderate decrease in GFR 30-59 4 Severe decrease in GFR 15-29 5 Kidney failure <15 (or dialysis) 5 Acute inflammation: >10.00 6 Interpretive information available on [employer] Test Catalog at [email or web address] 7 SEE RESULT BELOW Name: JAYA STORY : [address]: Daisha Robb DO Acct: [id number] Unit: [id number] AGE: 77 Location: [place] [address] Re07/18/17 SEX: M Status: ADM IN SPEC: [id number] NIGEL: 07/17/[address]: Crow Huerta MD REQ: [id number] RECD: 07/17/17 STATUS: RES KHUSHBOO TIPTON: Zsofia Steven SOFTWARE REVERSE ENGINEER _ SOURCE: BLOOD,VENO SPDESC: ORDERED: Blood Cult COMMENTS: Patient is On Antibiotics? NO Procedure Result Reported Site Aerobic Culture Bottle Preliminary 07/18/17- 1641 ML No Growth Day 1 Anaerobic Culture Bottle Preliminary 07/18/17- 1641 ML No Growth Day 1 * ML - MAIN LAB ([facility]) . END OF REPORT * ML=Testing performed at Main Lab DEPARTMENT OF PATHOLOGY, [address] [place] [address] Carl Reece M.D. Director [facility] # [id number] Procedures Date CPT Code Description Status 07/15/2017 40597 Polysomnography Sleep Staging 4+ Parameters W/Cpap Completed 07/12/2017 95074 EKG Tracing & Interpretation Completed 06/23/2017 78200 ECHO Transthorasic Realtime 2D W Doppler & Color Completed Flow Hosp Encounters Type Date Location Provider CPT E/M Dx Office Visit 07/17/2017 [facility] Daisha Cezar, [address] J44.9 7:06a Hospitalists Elisha J18.1 I10 N17.9 Office Visit 07/12/2017 10:40a [facility] [place] [address] Z95.2 [facility] FACC I65.23 I48.91 N18.9 E78.5 I12.9 I50.9 Office Visit 07/11/2017 11:45a [facility] [address] J44.9 [facility] R06.02 G47.33 R09.02 Office Visit 06/29/2017 3:00p [facility] Internal Medicine - Santiago Harris, GRINDING MACHINE OPERATOR [employer]IC [address] Z95.2 J44.1 E78.5 I10 F41.9 Z23 J44.9 Office Visit 06/24/2017 11:09a [facility], [place] [address] J44.1 Hospitalists I50.9 E78.5 I10 Office Visit 06/23/2017 11:09a [facility] [address] J44.1 Hospitalists I50.9 E78.5 I10 Office Visit 06/22/2017 11:08a [facility] Laci Abel, [address] J44.1 Hospitalists N.P. I50.9 E78.5 I10 Plan of Care Future Appointment(s):10/12/2017 9:00 am - Radha Delgado MD at [facility]09/28/2017 4:00 pm - Emil Garcia DO FACC at [facility]09/15/2017 3:45 pm - Ica Nuclear Schedule at [facility]08/31/2017 - Radha Delgado MDJ44.1 Chronic obstructive pulmonary disease w (acute) exacerbationNew Medication:Prednisone 10 mgFollow up :1 anrtqZ93.33 Obstructive sleep apnea (adult) (pediatric)R09.02 Hypoxemia
--- OUTSIDE RECORDS SUMMARY | 2017-09-17 13:26 | XMS REPORT ---
:1940 External Reference #:[id number] Author Organization [facility] Address [address] [address] Phone [phone] Care Team Providers Name Role Phone Cortney Anderson MD Primary Care Physician Unavailable Payers Type Date Identification Numbers Payment Provider Subscriber Medicare Primary Policy Number: [id number] Medicare Jaya Story PayID: [id number] [address] [place] [address] [place] Policy Number: [id number] [employer] Jaya Story PayID: [id number] [address] [place] [address] Problems Description No Information Family History Date [...] Form Strength Qnty SIG Indications Ordering Provider Lisinopril 08/24/ Active Tablets 5mg 90tab 1 by mouth Emil Kurtz s every day Garcia, DO FACC Lasix 08/24/ Active Tablets 20mg 60tab 1 by mouth Emil S. 2017 s twice daily Garcia, DO FACC Eliquis 07/12/ Active Tablets 5mg 180ta 1 by mouth I48.91 Emil Kurtz bs twice a day Garcia, DO FACC Atorvastatin 07/12/ Active Tablets 40mg 90tab 1 by mouth Z95.2 Emil Solano Calcium 2016 s every day Garcia, DO FACC Oxycodone-Acetam / Active Tablets 5-325mg 1-2 tabs [...] 0000 24HR s every day Garcia, DO FACC Ferrous Sulfate / Active Tablets 325mg 1 by mouth Unknown 0000 every day Symbicort / Active Aerosol 80-4.5mcg 2 puff Unknown 0000 /Act twice a day Ergocalciferol / Active 41514cc weekly Unknown 0000 Albuterol / Active Nebulizer (2.5mg/3M 1 vial via Unknown Sulfate 0000 L) 0.083% nebulizer 3 times daily as needed Eliquis 00/ Hx Tablets 5mg 1 by mouth Unknown 0000 - twice a day 2016 Simvastatin /00/ Hx Tablets 20mg 1 by mouth Z95.2 Unknown 0000 - every day 2016 Inspra / Hx Tablets 25mg 1 by mouth Unknown 0000 - every day 2016 Furosemide /00/ Hx Tablets 80mg bid Unknown 0000 - 2016 Lisinopril / Hx Tablets 10mg 1 by mouth Unknown 0000 - every day 2016 Prednisone / Hx TBPK 10mg (48) 40mg by Unknown 0000 - mouth on 06/19/172016 tapering by 10mg every day until gone Lasix // Hx Tablets 40mg 1 1/2 Unknown 0000 - tablets (60mg) by 2017 mouth twice a day Spiriva / Hx Capsules 18mcg 1 unit Unknown Handihaler 0000 - inhalation 2016 Spirulina / Hx 1 tablet Unknown 0000 - daily 2016 Eplerenone / Hx Tablets 25mg 1 by mouth Unknown 0000 - every day 2016 Immunizations CPT Code Status Date Vaccine Reaction Lot # [id number] Given 06/29/2017 Influenza Virus Vaccine, no immediate reaction, [id number] Quadrivalent, Split, pt tolerated well Preservative Free Vital Signs Date Vital Result Comment 08/24/2017 Height 72 inches 6'0" Weight 231.00 [...] - FDP greater than 20 ug/ml 3 [facility] Severe Sepsis and Septic Shock [...] inflammation: >10.00 6 Interpretive information available on [facility] Test Catalog at [email or web address] 7 SEE RESULT BELOW Name: JAYA STORY : [address]: Daisha Robb DO Acct: [id number] Unit: [id number] AGE: 77 Location: [place] [address] Re07/18/17 SEX: M Status: ADM IN SPEC: [id number] NIGEL: 07/17/[address] [facility] [address]: Crow Huerta MD REQ: [id number] RECD: 07/17/17 STATUS: RES RADHA DR: Santiago Harris RESIDENTIAL SOLAR CONSULTANT _ SOURCE: BLOOD,VENO SPDESC: ORDERED: Blood Cult COMMENTS: Patient is On Antibiotics? NO Procedure Result Reported Site Aerobic Culture Bottle Preliminary 07/18/17- 1642 ML No Growth Day 1 Anaerobic Culture Bottle Preliminary 07/18/17- 1642 ML No Growth Day 1 * ML - MAIN LAB ([facility]) . END OF REPORT * ML=Testing performed at Main Lab DEPARTMENT OF PATHOLOGY, [address] [place] [address] Carl Reece M.D. Director [facility] # [id number] Procedures Date CPT Code Description Status 07/15/2017 56086 Polysomnography Sleep Staging 4+ Parameters W/Cpap Completed 07/12/2017 26360 EKG Tracing & Interpretation Completed 06/23/2017 51722 ECHO Transthorasic Realtime 2D W Doppler & Color Completed Flow Hosp Encounters Type Date Location Provider CPT E/M Dx Office Visit 08/24/2017 [facility] [place] [address] I65.23 2:40p [facility] R60.0 J44.9 Office Visit 07/17/2017 7:06a [facility] Daisha Robb, [address] J44.9 Hospitalists Elisha J18.1 I10 N17.9 Office Visit 07/12/2017 10:40a [facility] [place] [address] Z95.2 [facility] FAC I65.23 I48.91 N18.9 E78.5 I12.9 I50.9 Office Visit 07/11/2017 11:45a [facility] [place] [address] J44.9 Services Of [facility] R06.02 G47.33 R09.02 Office Visit 06/29/2017 3:00p [facility] Internal Medicine - Santiago Harris, FAMILY MEDICINE PHYSICIAN ASSISTANT [address] Z95.2 J44.1 E78.5 I10 F41.9 Z23 J44.9 Office Visit 06/24/2017 11:09a [facility], [place] [address] J44.1 Hospitalists I50.9 E78.5 I10 Office Visit 06/23/2017 11:09a [facility], [place] [address] J44.1 Hospitalists I50.9 E78.5 I10 Office Visit 06/22/2017 11:08a [facility], Laci Abel [address] J44.1 Hospitalists N.P. I50.9 E78.5 I10 Plan of Care Future Appointment(s):09/28/2017 4:00 pm - Emil Garcia DO FACC at [facility] Of [facility]09/15/2017 3:45 pm - Ica Nuclear Schedule at [facility] Of [facility]10/04/2017 10:30 am - Radha Delgado MD at [facility] Of [facility]08/24/2017 - Emil Garcia DO FACCI65.23 Occlusion and stenosis of bilateral carotid arteriesNew Orders:Doppler Study, Carotid UsnndyJ34.0 Localized edemaComments:Decrease the lisinopril from 10 mg to 5 mg once daily.Decrease the furosemide (lasix) to 20 mg twicedaily (a new prescripition was sent)Follow up:Follow up 1 month with [facility] dfzedY27.9 Chronic obstructive pulmonary disease, unspecifiedComments:Restart taking spiriva
[2017-09-17 13:36] LABS: ABS Basophils 0.1 10^3/ul (0-0.2); ABS Eosinophils 0.5 10^3/ul (0-0.6); ABS Monocytes 0.7 10^3/ul (0-0.8); ABS Neutrophils 7.5 10^3/ul (1.5-7.7); ABS Nucleated RBC 0 10^3/ul; Eosinophil % 4.8 % (0-6); Hematocrit 35 % (42-52); Hemoglobin 11.5 g/dl (14.0-18.0); Lymphocyte % 10.7 % (25-47); Mean Corpuscular HGB Conc 33 g/dl (31-36); Mean Corpuscular Hemoglobin 28 pg (27-31); Mean Corpuscular Volume 87 fL (80-94); Mean Platelet Volume 9 um3 (7.4-10.4); Nucleated Red Blood Cells % 0; Platelet Count 146 10^3/ul (150-450); Red Blood Count 4.05 10^6/ul (4.0-5.4); Red Cell Distribution Width 16 % (10.5-15); White Blood Count 9.8 10^3/ul (3.5-10.8)
[2017-09-17 13:42] LABS: INR 1.17 (0.77-1.02)
[2017-09-17] MEDS ORDERED: methylPREDNISolone 125 MG* 2 ML VIAL IV ONE (13:53)
[2017-09-17] MEDS ORDERED: Albuterol/Ipratropium NEB.SOL* Albuterol 2.5 MG/Ipratropium 0.5 MG 3 ML INH ONE ×2 (13:53→16:31)
[2017-09-17 13:58] LABS: EGFR Non-African American 54.3 (>60)
--- NOTE | 2017-09-17 14:04 | RAD ---
INDICATION: Difficulty breathing COMPARISON: Most recent comparison chest x-rays dated August 31, 2017 TECHNIQUE: Single AP portable view of the chest was obtained. FINDINGS: Image quality is compromised due to the relative inferiority of a portable chest x-ray. There is mild cardiomegaly. The pulmonary vasculature appears indistinct and engorged. There is interval development of density obscuring the right lung base and to a lesser extent the left lung base. Visualized bones are normal for the patient's age. IMPRESSION: Chest x-ray findings are most consistent with cardiogenic pulmonary edema with right greater than left pleural effusions.
[2017-09-17] MEDS ORDERED: Calcium Gluconate INJ* 1 GM in NS 0.9% 100 ML* 100 ML IVPB ONE (16:32)
[2017-09-17] MEDS ORDERED: Insulin REGULAR(*) 1 UNITS UNIT IV PUSH ONE (17:18)
[2017-09-17] MEDS ORDERED: Dextrose 50% VIAL 50 ml IV ONE (17:18)
[2017-09-17] MEDS ORDERED: Sodium Polystyrene ORAL.SOL* 15 GM/60 ML BTL PO ONE (17:21)
--- NOTE | 2017-09-17 17:30 | ED ---
[facility] Natalie, scribed for Vidal Kruger MD on 09/17/17 at 1227 . Shortness of Breath - HPI Summary HPI Summary: The pt is a 77 y/o M presenting to the ED c/o SOB onset a few weeks, worsening gradually especially over the past few days. The pain is aggravated by exertion and alleviated by nothing. Pt additionally c/o chest tightness and chest pain. Pt denies fever, productive cough, and unusual leg swelling. He saw his stained glass window designer, Dr. Garcia, on 09/15/17. The pt has been using nebulizers at home , with the last treatment at 09:00 this morning. He is usually on 3L O2 at home. He takes Prednisone. - History of Current Complaint Chief Complaint: EDShortnessOfBreath Time Seen by Provider: 09/17/17 12:14 Hx Obtained From: Patient Onset/Duration: Lasting Weeks - started a few weeks ago, Still Present, Worse Since - four days ago Current Severity: Mild Dyspnea At: Exertion Aggrevating Factors: Movement Alleviating Factors: Nothing Associated Signs & Symptoms: Negative - fever, productive cough, unusual leg swelling, Chest Pain Unrelated to Cough - Allergy/Home Medications Allergies/Adverse Reactions: Allergies Allergy/AdvReac Type Severity Reaction Status Date / Time No Known Allergies Allergy Verified 06/22/17 15:07 PMH/Surg Hx/FS Hx/Imm Hx Previously Healthy: No Endocrine/Hematology History: Reports: Hx Diabetes Cardiovascular History: Reports: Hx Congestive Heart Failure, Hx Hypertension, Other Cardiovascular Problems/Disorders - valve repair, AFIB, Hyperlipidemia Respiratory History: Reports: Hx Asthma, Hx Chronic Obstructive Pulmonary Disease (COPD) Sensory History: Reports: Hx Contacts or Glasses, Hx Hearing Aid, Hx Hearing Problem - Hard of hearing Opthamlomology History: Reports: Hx Contacts or Glasses - Surgical History Surgery Procedure, Year, and Place: Valve repair December 2016 [place], [place], Tonsillectomy Infectious Disease History: No Infectious Disease History: Denies: Traveled Outside the [place] in Last 30 Days - Family History Known Family History: Positive: Diabetes Negative: Hypertension - Social History Alcohol Use: Rare Substance Use Type: Reports: None Smoking Status (MU): Former Smoker Review of Systems Negative: Fever Positive: Chest Pain, Other - chest tightness Positive: Shortness Of Breath. Negative: Cough Negative: Other - unusual leg swelling All Other Systems Reviewed And Are Negative: Yes Physical Exam - Summary Physical Exam Summary: Appearance: The patient is well-nourished in no acute distress and in no acute pain. Skin: The skin is warm and dry and skin color reflects adequate perfusion. HEENT: The head is normocephalic and atraumatic. The pupils are equal and reactive. The conjunctivae are clear and without drainage. Nares are patent and without drainage. Mouth reveals moist mucous membranes and the throat is without erythema and exudate. The external ears are intact. The ear canals are patent and without drainage. The tympanic membranes are intact. Neck: The neck is supple with full range of motion and non-tender. There are no carotid bruits. There is no neck vein distension. Respiratory: Chest is non-tender. There are expiratory wheezes present. There is a prolonged E:I ratio. Cardiovascular: Heart is regular rate and rhythm. There is no murmur or rub auscultated. There is no peripheral edema and pulses are symmetrical and equal. Abdomen: The abdomen is soft and non-tender. There are normal bowel sounds heard in all four quadrants and there is no organomegaly palpated. Musculoskeletal: There is no back tenderness noted. Extremities are non-tender with full range of motion. There is good capillary refill. There is slight pitting edema bilaterally. Neurological: Patient is alert and oriented to person, place and time. The patient has symmetrical motor strength in all four extremities. Cranial nerves are grossly intact. Deep tendon reflexes are symmetrical and equal in all four extremities. Psychiatric: The patient has an appropriate affect and does not exhibit any anxiety or depression. Triage Information Reviewed: Yes Vital Signs On Initial Exam: Initial Vitals Temp Pulse Resp BP Pulse Ox 97.6 F 74 20 136/44 94 09/17/17 11:49 09/17/17 11:49 09/17/17 11:49 09/17/17 11:49 09/17/17 11:49 Vital Signs Reviewed: Yes Diagnostics - Vital Signs Vital Signs Temp Pulse Resp BP Pulse Ox 09/17/17 11:49 97.6 F 74 20 136/44 94 - Laboratory Lab Results: Lab Results 09/17/17 09/17/17 09/17/17 Range/Units 12:50 12:50 12:50 WBC 9.8 (3.5-10.8) 10^3/ul RBC 4.05 (4.0-5.4) 10^6/ul Hgb 11.5 L (14.0-18.0) g/dl Hct 35 L (42-52) % MCV 87 (80-94) fL MCH 28 (27-31) pg MCHC 33 (31-36) g/dl RDW 16 H (10.5-15) % Plt Count 146 L (150-450) 10^3/ul MPV 9 (7.4-10.4) um3 Neut % (Auto) 76.3 (38-83) % Lymph % (Auto) 10.7 L (25-47) % Latimer % (Auto) 6.8 (1-9) % Eos % (Auto) 4.8 (0-6) % Baso % (Auto) 1.4 (0-2) % Absolute Neuts (auto) 7.5 (1.5-7.7) 10^3/ul Absolute Lymphs (auto) 1.0 (1.0-4.8) 10^3/ul Absolute Monos (auto) 0.7 (0-0.8) 10^3/ul Absolute Eos (auto) 0.5 (0-0.6) 10^3/ul Absolute Basos (auto) 0.1 (0-0.2) 10^3/ul Absolute Nucleated RBC 0 10^3/ul Nucleated RBC % 0 INR (Anticoag Therapy) (0.77-1.02) Sodium 140 (133-145) mmol/L Potassium 6.4 H* (3.5-5.0) mmol/L Chloride 110 (101-111) mmol/L Carbon Dioxide 27 (22-32) mmol/L Anion Gap 3 (2-11) mmol/L BUN 52 H (6-24) mg/dL Creatinine 1.29 H (0.67-1.17) mg/dL Est GFR ( Amer) 69.8 (>60) Est GFR (Non-Af Amer) 54.3 (>60) BUN/Creatinine Ratio 40.3 H (8-20) Glucose 148 H (70-100) mg/dL Lactic Acid 0.9 (0.5-2.0) mmol/L Calcium 8.2 L (8.6-10.3) mg/dL Total Bilirubin 0.50 (0.2-1.0) mg/dL AST 17 (13-39) U/L ALT 22 (7-52) U/L Alkaline Phosphatase 105 H (34-104) U/L Troponin I 0.01 (<0.04) ng/mL B-Natriuretic Peptide ( - 100) pg/mL Total Protein 6.2 L (6.4-8.9) g/dL Albumin 3.4 (3.2-5.2) g/dL Globulin 2.8 (2-4) g/dL Albumin/Globulin Ratio 1.2 (1-3) 09/17/17 09/17/17 Range/Units 12:50 12:50 WBC (3.5-10.8) 10^3/ul RBC (4.0-5.4) 10^6/ul Hgb (14.0-18.0) g/dl Hct (42-52) % MCV (80-94) fL MCH (27-31) pg MCHC (31-36) g/dl RDW (10.5-15) % Plt Count (150-450) 10^3/ul MPV (7.4-10.4) um3 Neut % (Auto) (38-83) % Lymph % (Auto) (25-47) % Latimer % (Auto) (1-9) % Eos % (Auto) (0-6) % Baso % (Auto) (0-2) % Absolute Neuts (auto) (1.5-7.7) 10^3/ul Absolute Lymphs (auto) (1.0-4.8) 10^3/ul Absolute Monos (auto) (0-0.8) 10^3/ul Absolute Eos (auto) (0-0.6) 10^3/ul Absolute Basos (auto) (0-0.2) 10^3/ul Absolute Nucleated RBC 10^3/ul Nucleated RBC % INR (Anticoag Therapy) 1.17 H (0.77-1.02) Sodium (133-145) mmol/L Potassium (3.5-5.0) mmol/L Chloride (101-111) mmol/L Carbon Dioxide (22-32) mmol/L Anion Gap (2-11) mmol/L BUN (6-24) mg/dL Creatinine (0.67-1.17) mg/dL Est GFR ( Amer) (>60) Est GFR (Non-Af Amer) (>60) BUN/Creatinine Ratio (8-20) Glucose (70-100) mg/dL Lactic Acid (0.5-2.0) mmol/L Calcium (8.6-10.3) mg/dL Total Bilirubin (0.2-1.0) mg/dL AST (13-39) U/L ALT (7-52) U/L Alkaline Phosphatase (34-104) U/L Troponin I (<0.04) ng/mL B-Natriuretic Peptide 267 H ( - 100) pg/mL Total Protein (6.4-8.9) g/dL Albumin (3.2-5.2) g/dL Globulin (2-4) g/dL Albumin/Globulin Ratio (1-3) Result Diagrams: 09/17/17 12:50 09/17/17 12:50 Lab Statement: Any lab studies that have been ordered have been reviewed, and results considered in the medical decision making process. - Radiology CXR Xray Interpretation: Positive (See Comments) - Chest x-ray findings are most consistent with cardiogenic pulmonary edema with right greater than left pleural effusions. ED physician has reviewed this report. Radiology Interpretation Completed By: Radiologist - EKG 12:00 Cardiac Rate: NL EKG Rhythm: Atrial Fibrillation - 108 BPM EKG Interpretation: Atrial fibrillation. Ventricular bigeminy. EKG Comparison: No Significant Change - no change from 06/22/17 Course/Dx - Course Course Of Treatment: Mr. Story presented C/O SOB secondary to COPD. He had been taking his nebs and low dose prednisone and using O2 at home. He was found to have a lot of wheezing with an increased E/I. CXR was read as mild CHF and he was found to be hyperkalemic (he has chronic renal insufficiency). He was given Ca++, INS/Dex, and Kayexalate. He is being admitted to the hospitalist service. - Diagnoses Provider Diagnoses: COPD with exacerbation, Hyperkalemia, CHF (congestive heart failure) - Physician Notifications Discussed Care of Patient With: Daisha Robb - I talked to Dr. Robb, the hospitalist, who will admit the patient. Time Discussed With Above Provider: 16:55 - Critical Care Time Critical Care Time: 30-74 min Discharge - Discharge Plan Condition: Stable Disposition: ADMITTED TO [facility] Referrals: Santiago Harris [employer] [Primary Care Provider] - The documentation as recorded by the Moses calderón Natalie accurately reflects the service I personally performed and the decisions made by me, Vidal Kruger MD.
[2017-09-17] MEDS ORDERED: Albuterol HFA INHALER* 8 gm MDI INH PRN (18:07)
[2017-09-17] MEDS ORDERED: Furosemide IV* 10 MG/ML 10 ML VIAL (100 MG) IV ONE (18:10)
[2017-09-17] MEDS ORDERED: Dextrose 50% Syringe 50 ML* 25 GM/50 ML SYRINGE IV PUSH PRN (18:27)
[2017-09-17] MEDS: Apixaban* 5 MG TAB PO SCH (20:49)
[2017-09-17] MEDS: predniSONE TAB* 20 MG PO SCH (20:49)
[2017-09-17] MEDS: Atorvastatin* 40 MG TAB PO SCH (20:50)
--- NOTE | 2017-09-17 22:05 | HP ---
HOSPITAL MEDICINE HISTORY AND PHYSICAL: DATE OF ADMISSION: 09/17/17 ATTENDING PHYSICIAN: Dr. Daisha Robb * (Dictation provided by Gisel Moraes NP) CHIEF COMPLAINT: Shortness of breath. HISTORY OF PRESENT ILLNESS: Mr. Story is a 77-year-old male with a past medical history of COPD, on home O2 as well as diastolic congestive heart failure and a history of aortic valve replacement, hypertension, AFib, obstructive sleep apnea, pulmonary hypertension and diet controlled diabetes, who presents to the hospital today with concern for shortness of breath. Per his report, he has had problems with this for "quite a while." He is unable to clearly delineate this to me better, but he has been following up with Dr. Garcia and Dr. Delgado since at least the beginning of August for this. He reports worsening dyspnea on exertion as being the reason for presenting here today. He states he can only walk a couple of steps before becoming quite winded and coughing. He states he is able to lay flat to go to sleep. He initially reports he has no lower extremity edema, but then clarifies to say that is just not any worse than usual. He has not felt significant wheezing, but he has had a cough that is nonproductive. He reports seeing Dr. Garcia and Dr. Delgado and that interventions had been to add prednisone 10 mg p.o. daily and to increase his Lasix. I note that, he was admitted to the hospital and was discharged on 07/20/17 after being treated for acute renal failure that was thought to be secondary to overdiuresis and therefore he had had his Lasix decreased since seeing Dr. Garcia. It appears that that dose has now been increased back up to 40 mg twice daily. The patient denies fever. He has had no chest pain. He has had no nausea, vomiting, diarrhea, or abdominal pain. In the emergency room, Mr. Story had labs, which were remarkable for potassium of 6.4, his BUN and creatinine were at baseline at 52 and 1.29 respectively. His BNP is only 267. His troponin is 0.01. His hemoglobin and hematocrit are at baseline. Vitals show that he is afebrile with heart rate running about 100. He is not tachypneic. He is on his home 3 L nasal cannula. His blood pressure is 125/69. The patient's chest x-ray is consistent with pulmonary edema. PAST MEDICAL HISTORY: 1. COPD with home oxygen. 2. Type 2 diabetes, diet controlled. 3. Hypertension. 4. AFib, on Eliquis. 5. Diastolic congestive heart failure. 6. History of aortic valve replacement with bioprosthetic valve. 7. Anxiety. 8. Hyperlipidemia. 9. Obstructive sleep apnea, on BiPAP at 12/8. 10. Pulmonary hypertension. MEDICATIONS: 1. Apixaban 5 mg p.o. b.i.d. 2. Albuterol inhaler two puffs inhaled q.4 hours p.r.n. 3. Albuterol nebulizer 2.5 mg nebulized q.4 hours p.r.n. 4. Metoprolol succinate 50 mg p.o. daily. 5. Lisinopril 5 mg p.o. daily. 6. Furosemide 40 mg p.o. b.i.d. 7. Ferrous sulfate 325 mg p.o. daily. 8. Symbicort 80/4.5 two puffs inhaled b.i.d. 9. Atorvastatin 40 mg p.o. q.p.m. 10. Aspirin 81 mg p.o. daily. 11. Prednisone 10 mg p.o. daily. 12. Tiotropium one cap inhaled daily. ALLERGIES: No known drug allergies. FAMILY HISTORY: The patient reports that his mother at 82 of heart disease and dad diet at 95 of old age. SOCIAL HISTORY: The patient states he quit smoking about 8 to 10 years ago. 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 He has no reported alcohol or drug use. He lives with his , Thais, who is the healthcare proxy. REVIEW OF SYSTEMS: A 14-point review of systems was completed with Mr. Story and all those not mentioned above were negative. PHYSICAL EXAMINATION GENERAL: Mr. Story is sitting in the chair. He is no acute distress. VITAL SIGNS: Temperature 97.6, pulse rate 98, respiratory rate 16, O2 saturation 96% on 3 L nasal cannula, blood pressure 125/69. LUNGS: Diminished in the right base with some inspiratory crackles bilaterally. HEART: S1 and S2. No murmur, rub, gallop and regular. ABDOMEN: Soft and nontender with bowel sounds positive x4. EXTREMITIES: Positive for 2+ pitting edema with chronic venous stasis changes. NEURO: He is alert. He is oriented x3. He moves all extremities equally. There is no facial asymmetry or focal weakness. Extraocular movements are intact. SKIN: Intact. DIAGNOSTIC STUDIES/LAB DATA: WBC 9.8, hemoglobin 11.5, hematocrit 35, platelet count 146. INR 1.17. Sodium 140, potassium 6.4, chloride 110, serum bicarbonate 27, BUN 52, creatinine 1.29, glucose 148, lactic acid 0.9, calcium 8.2, alkaline phosphatase 105, BNP 267. Chest x-ray shows findings consistent with cardiogenic pulmonary edema with right greater than left pleural effusion. EKG shows atrial fibrillation with a heart rate about 110 with ventricular bigeminy. ASSESSMENT AND PLAN: Mr. Story is a 77-year-old male with a past medical history of chronic obstructive pulmonary disease, on home O2 as well as obstructive sleep apnea with BiPAP, diastolic congestive heart failure, history of aortic valve replacement, atrial fibrillation, hypertension, who presents to the hospital with concern for shortness of breath. Based on the presence of pulmonary edema and pleural effusion on the chest x-ray, I suspect this is primarily associated with congestive heart failure exacerbation, but likely there was also a small component of chronic obstructive pulmonary disease exacerbation. Our plans are for observation in the hospital for the followin. Shortness of breath: Again, I think this is multifactorial given his history. Plan to treat congestive heart failure with an increase of IV Lasix tonight. We will check all his labs in the a.m. and he will have a repeat dose of Lasix in the a.m. We will monitor I's and O's closely and he will have daily weights. His last echocardiogram was in June and I do not feel at this point at least that there is any real benefit to repeat an echocardiogram unless he does not respond to therapy. In terms of chronic obstructive pulmonary disease, plan to treat with 40 mg of prednisone. I do not see an indication for antibiotic at this time. He will have DuoNeb nebulizers available p.r.n. Oxygen has been routinely that will be titrated as needed. I see no evidence of infection, no evidence of pneumonia. He is on Eliquis, therefore he is at very low risk for pulmonary embolism. 2. Hyperkalemia. It is unclear what is driving the patient's hyperkalemia at this point. Plan for furosemide once and then recheck labs in a couple of hours. If his potassium has not fallen, we will give him Kayexalate. Plan to recheck all labs in the a.m. Please note, the patient was given calcium gluconate and dextrose with regular insulin in the ED. 3. Type 2 diabetes. The patient had blood glucoses q.a.c. and not on any medications at home. He can have a lispro sliding scale as needed. 4. Chronic kidney disease is at baseline. Monitor. 5. Atrial fibrillation. Continue Eliquis and metoprolol. 6. Obstructive sleep apnea. Continue BiPAP at home settings. 7. Code status is full code. This was reviewed with the patient at bedside. 8. Disposition to telemetry floor. TIME SPENT: Approximately 60 minutes were spent on the admission of this patient, more than half of the time was spent with the patient at the bedside reviewing the events leading up to this hospitalization, performing the physical examination, and reviewing my plan of care. GISEL MORAES NP [id number]/CPS #: [id number] ADARSH
[2017-09-17 22:56] LABS: EGFR Non-African American 42.7 (>60)
[2017-09-18] MEDS: Albuterol 2.5 MG/3 ML NEB.SOL* (0.083%) INH PRN ×2 (04:36→19:50)
[2017-09-18] MEDS ORDERED: Sodium Polystyrene ORAL.SOL* 15 GM/60 ML BTL PO ONE (06:32)
[2017-09-18] MEDS: Tiotropium CAP.INH* CAP.INH/18 MCG (USE ORDER SET !) INH SCH (07:51)
[2017-09-18] MEDS ORDERED: Furosemide IV* 10 MG/ML VIAL (40 MG) IV ONE (08:00)
[2017-09-18] MEDS ORDERED: Spiriva Inhaler DEVICE* 1 EACH DEVICE INH ONE (09:00)
[2017-09-18] MEDS: Apixaban* 5 MG TAB PO SCH ×2 (09:11→21:30)
[2017-09-18] MEDS: Metoprolol Succinate XL TAB* 50 MG PO SCH (09:11)
[2017-09-18] MEDS: Aspirin EC Low Dose* 81 MG TAB.EC PO SCH (09:12)
[2017-09-18] MEDS: Insulin LISPRO* 1 UNITS UNIT SUBCUT SCH ×3 (09:12→18:06)
[2017-09-18] MEDS: predniSONE TAB* 20 MG PO SCH (09:12)
[2017-09-18] MEDS: Azithromycin TAB* 250 MG PO SCH (12:49)
[2017-09-18] MEDS: Furosemide IV* 10 MG/ML VIAL (40 MG) IV SCH ×3 (13:04→18:06)
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
[2017-09-18 20:45] LABS: EGFR Non-African American 33.3 (>60)
[2017-09-18] MEDS: Atorvastatin* 40 MG TAB PO SCH (21:30)
[2017-09-19] MEDS: Tiotropium CAP.INH* CAP.INH/18 MCG (USE ORDER SET !) INH SCH (07:47)
[2017-09-19] MEDS: Insulin LISPRO* 1 UNITS UNIT SUBCUT SCH ×3 (08:16→17:27)
[2017-09-19 09:31] LABS: ABS Basophils 0.1 10^3/ul (0-0.2); ABS Eosinophils 0.1 10^3/ul (0-0.6); ABS Lymphocytes 1.9 10^3/ul (1.0-4.8); ABS Monocytes 0.6 10^3/ul (0-0.8); ABS Neutrophils 7.3 10^3/ul (1.5-7.7); ABS Nucleated RBC 0 10^3/ul; Eosinophil % 0.6 % (0-6); Hematocrit 33 % (42-52); Hemoglobin 10.8 g/dl (14.0-18.0); Lymphocyte % 19.1 % (25-47); Mean Corpuscular HGB Conc 33 g/dl (31-36); Mean Corpuscular Hemoglobin 28 pg (27-31); Mean Corpuscular Volume 87 fL (80-94); Mean Platelet Volume 9 um3 (7.4-10.4); Nucleated Red Blood Cells % 0; Platelet Count 144 10^3/ul (150-450); Red Blood Count 3.82 10^6/ul (4.0-5.4); Red Cell Distribution Width 16 % (10.5-15); White Blood Count 9.9 10^3/ul (3.5-10.8)
[2017-09-19 09:42] LABS: EGFR Non-African American 35.6 (>60)
[2017-09-19] MEDS: Azithromycin TAB* 250 MG PO SCH (09:51)
[2017-09-19] MEDS: Apixaban* 5 MG TAB PO SCH ×2 (09:51→20:05)
[2017-09-19] MEDS: predniSONE TAB* 20 MG PO SCH (09:51)
[2017-09-19] MEDS: Aspirin EC Low Dose* 81 MG TAB.EC PO SCH (09:51)
[2017-09-19] MEDS: Metoprolol Succinate XL TAB* 50 MG PO SCH (09:51)
[2017-09-19] MEDS: Furosemide IV* 10 MG/ML VIAL (40 MG) IV SCH ×3 (09:52→20:06)
[2017-09-19] MEDS ORDERED: Tiotropium CAP.INH* CAP.INH/18 MCG (USE ORDER SET !) INH SCH (15:00)
[2017-09-19] MEDS ORDERED: Spiriva Inhaler DEVICE* 1 EACH DEVICE SCH (15:00)
--- NOTE | 2017-09-19 17:06 | PN ---
Subjective Date of Service: 09/19/17 Interval History: Still feels bad. More junky cough and congestion today. 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 hyperkalemia improved to 5.0. positive 1L, weight increased. Objective Active Medications: Albuterol (Ventolin 2.5 Mg/3 Ml Neb.Amber*) 2.5 mg INH Q4HR PRN PRN Reason: SOB/WHEEZING Last Admin: 09/18/17 19:50 Dose: 2.5 mg Albuterol (Ventolin Hfa Inhaler*) 2 puff INH Q4H PRN PRN Reason: SOB/WHEEZING Apixaban (Eliquis*) 5 mg PO BID [facility] Last Admin: 09/19/17 09:51 Dose: 5 mg Aspirin (Aspirin Ec Low Dose*) 81 mg PO DAILY [facility] Last Admin: 09/19/17 09:51 Dose: 81 mg Atorvastatin Calcium (Lipitor*) 40 mg PO 2100 [facility] Last Admin: 09/18/17 21:30 Dose: 40 mg Azithromycin (Zithromax Tab*) 250 mg PO DAILY [facility] Last Admin: 09/19/17 09:51 Dose: 250 mg Dextrose (D50w Syringe 50 Ml*) 12.5 gm IV PUSH .FOR FS < 60 - SS PRN PRN Reason: FS < 60 Furosemide (Lasix Iv*) 40 mg IV DAILY [facility] Last Admin: 09/19/17 09:52 Dose: 40 mg Insulin Human Lispro (Humalog*) 0 units SUBCUT AC [facility] PRN Reason: Protocol Last Admin: 09/19/17 12:50 Dose: 2 units Metoprolol Succinate (Toprol Xl Tab*) 50 mg PO DAILY [facility] Last Admin: 09/19/17 09:51 Dose: 50 mg Mometasone Furoate/Formoterol Fumar (Dulera 200/5 Mdi*) 2 puff INH BID [facility] Montelukast Sodium (Singulair Tab*) 10 mg PO DAILY [facility] Prednisone (Deltasone Tab*) 40 mg PO DAILY [facility] Last Admin: 09/19/17 09:51 Dose: 40 mg Tiotropium [place] (Spiriva Cap.Inh*) 1 cap INH DAILY [facility] Last Admin: 09/19/17 07:47 Dose: 1 cap Vital Signs - 8 hr 09/19/17 09/19/17 12:11 15:49 Temperature 97.9 F 97.4 F Pulse Rate 41 43 Respiratory 20 20 Rate Blood Pressure 136/54 134/44 (mmHg) O2 Sat by Pulse 99 98 Oximetry Oxygen Devices in Use Now: Nasal Cannula, OxyTrach Appearance: NAD but audibly more congested sounding. Respiratory: - - tighter sounding, expiratory wheezing, rhochi Cardiovascular: NL Sounds; No Murmurs; No JVD, RRR, - Abdominal: NL Sounds; No Tenderness; No Distention Extremities: - - 1-2+ edema Result Diagrams: 09/19/17 08:55 09/19/17 08:55 Additional Lab and Data: Laboratory Results - last 24 hr 09/18/17 09/18/17 09/19/17 17:10 20:03 08:12 WBC RBC Hgb Hct MCV MCH MCHC RDW Plt Count MPV Neut % (Auto) Lymph % (Auto) [place] % (Auto) Eos % (Auto) Baso % (Auto) Absolute Neuts (auto) Absolute Lymphs (auto) Absolute Monos (auto) Absolute Eos (auto) Absolute Basos (auto) Absolute Nucleated RBC Nucleated RBC % Sodium 136 Potassium 6.0 H Chloride 103 Carbon Dioxide 27 Anion Gap 6 BUN 72 H Creatinine 1.97 H Est GFR ( Amer) 42.8 Est GFR (Non-Af Amer) 33.3 BUN/Creatinine Ratio 36.5 H Glucose 167 H POC Glucose (mg/dL) 169 H 122 H Calcium 8.4 L Ur Random Creatinine Ur Random Urea Nitrogn 09/19/17 09/19/17 09/19/17 08:55 08:55 12:02 WBC 9.9 RBC 3.82 L Hgb 10.8 L Hct 33 L MCV 87 MCH 28 MCHC 33 RDW 16 H Plt Count 144 L MPV 9 Neut % (Auto) 73.2 Lymph % (Auto) 19.1 L [place] % (Auto) 6.0 Eos % (Auto) 0.6 Baso % (Auto) 1.1 Absolute Neuts (auto) 7.3 Absolute Lymphs (auto) 1.9 Absolute Monos (auto) 0.6 Absolute Eos (auto) 0.1 Absolute Basos (auto) 0.1 Absolute Nucleated RBC 0 Nucleated RBC % 0 Sodium 139 Potassium 5.0 Chloride 105 Carbon Dioxide 26 Anion Gap 8 BUN 79 H Creatinine 1.86 H Est GFR ( Amer) 45.8 Est GFR (Non-Af Amer) 35.6 BUN/Creatinine Ratio 42.5 H Glucose 142 H POC Glucose (mg/dL) 135 H Calcium 8.5 L Ur Random Creatinine Ur Random Urea Nitrogn 09/19/17 14:16 WBC RBC Hgb Hct MCV MCH MCHC RDW Plt Count MPV Neut % (Auto) Lymph % (Auto) [place] % (Auto) Eos % (Auto) Baso % (Auto) Absolute Neuts (auto) Absolute Lymphs (auto) Absolute Monos (auto) Absolute Eos (auto) Absolute Basos (auto) Absolute Nucleated RBC Nucleated RBC % Sodium Potassium Chloride Carbon Dioxide Anion Gap BUN Creatinine Est GFR ( Amer) Est GFR (Non-Af Amer) BUN/Creatinine Ratio Glucose POC Glucose (mg/dL) Calcium Ur Random Creatinine 114.45 Ur Random Urea Nitrogn 651 Microbiology and Other Data: Microbiology 09/17/17 13:00 Blood Venous Aerobic Blood Culture - Preliminary No Growth Day 2 09/17/17 13:00 Blood Venous Anaerobic Blood Culture - Preliminary No Growth Day 2 09/17/17 12:50 Blood Venous Aerobic Blood Culture - Preliminary No Growth Day 2 09/17/17 12:50 Blood Venous Anaerobic Blood Culture - Preliminary No Growth Day 2 Assess/Plan/Problems-Billing Assessment: 77 yo male PMH COPD, AFib, ANA, chronic hypoxic respiratory failure(3L) p/w progressive SOB, pulmonary edema, pleural effusions and hyperkalemia. Multifactorial but most likely COPD exacerbation with component of acute diastolic heart failure. Diuresing, steroids, azithromycin. NERISSA - Patient Problems (1) COPD exacerbation Current Visit: No Status: Acute Code(s): J44.1 - CHRONIC OBSTRUCTIVE PULMONARY DISEASE W (ACUTE) EXACERBATION SNOMED Code(s): 634284598879582 Comment: s/p 125mg solumedrol in ED. was on PO Prednisone 40mg daily, albuterol nebs, spiriva. will switch back to solumederol 40mg BID. Add dulera, singular. Chronic hypoxic respiratory failure. continue CPAP at night for ANA (2) CHF (congestive heart failure) Current Visit: No Status: Acute Code(s): I50.9 - HEART FAILURE, UNSPECIFIED SNOMED Code(s): 81056434 Comment: Acute diastolic exaccerbation with pulmonary edema, pleural effusions. Continue IV Lasix 40mg BID. strict io, daily weights. ECHO EF 65%, no tricuspid valve regurg to assess for pHTN (previously mentioned in EMR), no mention of diastolic dysfunction. BNP 267 on admission. (3) Type II diabetes mellitus Current Visit: No Status: Acute Comment: SSI, POCT qachs A1C 7.4% in Oct, not on home meds. (4) Afib Current Visit: No Status: Acute Code(s): I48.91 - UNSPECIFIED ATRIAL FIBRILLATION SNOMED Code(s): 45484142 Comment: Continue metoprolol 50mg daily and eliquis. Telemetry Mg>2, K>4 (currently elevated) (5) Hyperkalemia Current Visit: Yes Status: Acute Code(s): E87.5 - HYPERKALEMIA SNOMED Code (s): 30238351 Comment: s/p kayexalate, having BMs resolved. repeat BMP Status and Disposition: medicine inpatient Attending: Ryan Butler
[2017-09-19] MEDS: Montelukast Sodium TAB* 10 MG PO SCH (17:27)
[2017-09-19] MEDS: methylPREDNISolone SOD 40 MG* 1 ML VIAL IV SCH (17:27)
[2017-09-19] MEDS: Atorvastatin* 40 MG TAB PO SCH (20:06)
[2017-09-19] MEDS: guaiFENesin ER TAB 600 MG PO SCH (20:06)
[2017-09-19] MEDS: Mometasone/Formoter 200/5 MDI INH SCH (21:01)
[2017-09-20] MEDS: methylPREDNISolone SOD 40 MG* 1 ML VIAL IV SCH ×2 (05:31→17:50)
[2017-09-20] MEDS: Furosemide IV* 10 MG/ML VIAL (40 MG) IV SCH ×2 (08:24→21:58)
[2017-09-20] MEDS: Azithromycin TAB* 250 MG PO SCH (08:24)
[2017-09-20] MEDS: guaiFENesin ER TAB 600 MG PO SCH ×2 (08:24→21:58)
[2017-09-20] MEDS: Aspirin EC Low Dose* 81 MG TAB.EC PO SCH (08:24)
[2017-09-20] MEDS: Montelukast Sodium TAB* 10 MG PO SCH (08:24)
[2017-09-20] MEDS: Metoprolol Succinate XL TAB* 50 MG PO SCH (08:24)
[2017-09-20] MEDS: Insulin LISPRO* 1 UNITS UNIT SUBCUT SCH ×3 (08:25→16:38)
[2017-09-20] MEDS: Apixaban* 5 MG TAB PO SCH ×2 (08:27→21:58)
[2017-09-20] MEDS: Tiotropium CAP.INH* CAP.INH/18 MCG (USE ORDER SET !) INH SCH (08:57)
[2017-09-20] MEDS: Mometasone/Formoter 200/5 MDI INH SCH ×2 (08:59→20:57)
[2017-09-20 10:55] LABS: ABS Basophils 0 10^3/ul (0-0.2); ABS Eosinophils 0 10^3/ul (0-0.6); ABS Lymphocytes 0.5 10^3/ul (1.0-4.8); ABS Monocytes 0.1 10^3/ul (0-0.8); ABS Nucleated RBC 0.01 10^3/ul; Eosinophil % 0 % (0-6); Hematocrit 34 % (42-52); Mean Corpuscular HGB Conc 33 g/dl (31-36); Mean Corpuscular Hemoglobin 28 pg (27-31); Mean Corpuscular Volume 85 fL (80-94); Mean Platelet Volume 9 um3 (7.4-10.4); Nucleated Red Blood Cells % 0.1; Platelet Count 140 10^3/ul (150-450); Red Blood Count 3.95 10^6/ul (4.0-5.4); Red Cell Distribution Width 15 % (10.5-15); White Blood Count 9.7 10^3/ul (3.5-10.8)
[2017-09-20 11:25] LABS: EGFR Non-African American 38.7 (>60)
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
[2017-09-20] MEDS: Atorvastatin* 40 MG TAB PO SCH (21:58)
[2017-09-21] MEDS: methylPREDNISolone SOD 40 MG* 1 ML VIAL IV SCH (05:35)
[2017-09-21] MEDS: Mometasone/Formoter 200/5 MDI INH SCH (08:20)
[2017-09-21] MEDS: Tiotropium CAP.INH* CAP.INH/18 MCG (USE ORDER SET !) INH SCH (08:20)
[2017-09-21 08:49] LABS: ABS Basophils 0 10^3/ul (0-0.2); ABS Eosinophils 0 10^3/ul (0-0.6); ABS Lymphocytes 0.6 10^3/ul (1.0-4.8); ABS Monocytes 0.2 10^3/ul (0-0.8); ABS Neutrophils 9.6 10^3/ul (1.5-7.7); ABS Nucleated RBC 0 10^3/ul; Eosinophil % 0 % (0-6); Hematocrit 35 % (42-52); Hemoglobin 11.3 g/dl (14.0-18.0); Lymphocyte % 5.7 % (25-47); Mean Corpuscular HGB Conc 33 g/dl (31-36); Mean Corpuscular Hemoglobin 28 pg (27-31); Mean Corpuscular Volume 86 fL (80-94); Mean Platelet Volume 9 um3 (7.4-10.4); Nucleated Red Blood Cells % 0; Platelet Count 141 10^3/ul (150-450); Red Blood Count 4.04 10^6/ul (4.0-5.4); Red Cell Distribution Width 15 % (10.5-15); White Blood Count 10.4 10^3/ul (3.5-10.8)
[2017-09-21] MEDS: Furosemide IV* 10 MG/ML VIAL (40 MG) IV SCH (08:49)
[2017-09-21] MEDS: Insulin LISPRO* 1 UNITS UNIT SUBCUT SCH ×2 (08:49→12:56)
[2017-09-21] MEDS: Metoprolol Succinate XL TAB* 50 MG PO SCH (08:50)
[2017-09-21] MEDS: Montelukast Sodium TAB* 10 MG PO SCH (08:50)
[2017-09-21] MEDS: guaiFENesin ER TAB 600 MG PO SCH (08:50)
[2017-09-21] MEDS: Aspirin EC Low Dose* 81 MG TAB.EC PO SCH (08:50)
[2017-09-21] MEDS: Apixaban* 5 MG TAB PO SCH (08:52)
[2017-09-21] MEDS: Azithromycin TAB* 250 MG PO SCH (08:52)
[2017-09-21 13:18] VITALS: BP 160/52
[2017-09-21 14:31] LABS: EGFR Non-African American 39.2 (>60)
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
== END 2017-09-21 16:40 | disposition home or self-care (01) | DRG 291 ==
LOC: ED 11:45 → MEDTELE 17:03 → OBSVTOIN 09-18 17:50
PROVIDERS: ADMIT Hospitalist; ATTEND Internal Medicine
DX: I13.0 Hypertensive heart and chronic kidney disease with heart failure and stage 1 through stage 4 chronic kidney disease, or unspecified chronic kidney disease (principal); I50.33 Acute on chronic diastolic (congestive) heart failure; J96.21 Acute and chronic respiratory failure with hypoxia; E11.22 Type 2 diabetes mellitus with diabetic chronic kidney disease; J44.1 Chronic obstructive pulmonary disease with (acute) exacerbation; I27.20 Pulmonary hypertension, unspecified; Z99.81 Dependence on supplemental oxygen; I48.91 Unspecified atrial fibrillation; G47.33 Obstructive sleep apnea (adult) (pediatric); E87.5 Hyperkalemia; Z95.2 Presence of prosthetic heart valve; F41.9 Anxiety disorder, unspecified; N18.9 Chronic kidney disease, unspecified; E78.5 Hyperlipidemia, unspecified; Z79.82 Long term (current) use of aspirin; Z79.52 Long term (current) use of systemic steroids; Z79.899 Other long term (current) drug therapy; Z82.49 Family history of ischemic heart disease and other diseases of the circulatory system; Z87.891 Personal history of nicotine dependence
CPT/HCPCS: 36415; 71010; 80048; 80053; 82570; 83605; 83880; 84484; 84540; 85025; 85610; 87040; 93005; 94640; 94660; 94760; A9270-GY; G0378; G8978-GP-CK; G8979-GP-CJ; J1940; J2920; J2930; J7512

== ENCOUNTER 2017-10-08 15:19 | Inpatient (IN) | payer MEDICARE, OTHER ==
--- OUTSIDE RECORDS SUMMARY | 2017-10-08 16:01 | XMS REPORT ---
:1940 External Reference #:[id number] Author Organization [facility] Address [address] [address] Phone [phone] Care Team Providers Name Role Phone Manish Tam MD Primary Care Physician Unavailable Payers Type Date Identification Numbers Payment Provider Subscriber Medicare Primary Policy Number: [id number] Medicare Jaya Story PayID: [id number] [address] [place] [address] [place] Policy Number: [id number] [employer] Jaya Story PayID: [id number] [address] [place] [address] Problems Description No Information Family History Date [...] Provider Prednisone 08/31/ Active Tablets 10mg 30tab 20 mg twice J44.1 Radha 2017 s daily for 7 Sandy, days then MD reduce back to 10 mg daily Lisinopril 08/24/ Active Tablets 5mg 90tab 1 by mouth Emil Kurtz s every day Garcia, DO [facility] Lasix 08/24/ Active Tablets 20mg 60tab 2 by mouth Emil Kurtz s twice daily Garcia, DO [facility] Eliquis 07/12/ Active Tablets 5mg 180ta 1 by mouth I48.91 Emil Kurtz bs twice a day Garcia, DO [facility] Atorvastatin 07/12/ Active Tablets 40mg 90tab 1 by mouth Z95.2 Emil Solano Calcium 2016 s every day Garcia, DO [facility] Oxycodone-Acetam / Active Tablets 5-325mg 1-2 tabs by Unknown inophen 0000 mouth every 4-6 hours as needed for pain Aspirin Adult / Active Tablets DR 81mg 1 by mouth Unknown Low Dose 0000 every day Metoprolol / Active Tablets ER 50mg 90tab 1 by mouth Emil Solano Succinate ER 0000 24HR s every day Garcia, DO [facility] Ferrous Sulfate / Active Tablets 325mg 1 by mouth Unknown 0000 every day Symbicort / Active Aerosol 80-4.5mcg 1unit 2 puff Radha 0000 /Act s twice a day MD Sandy Albuterol / Active Nebulizer (2.5mg/3M 75ml 1 vial via Radha Sulfate 0000 L) 0.083% nebulizer 3 Sandy, times daily as needed Prednisone 08/24/ Hx Tablets 10mg 45tab Take one Emil Kurtz - s tablet by Jose, 08/31/ mouth daily DO [facility] 2017 Eliquis / Hx Tablets 5mg 1 by mouth Unknown 0000 - twice a day 2016 Simvastatin / Hx Tablets 20mg 1 by mouth Z95.2 Unknown 0000 - every day 2016 Inspra / Hx Tablets 25mg 1 by mouth Unknown 0000 - every day 2016 Calcitriol / Hx Capsules 0.25mcg 1 by mouth Unknown 0000 - every day 2016 Furosemide / Hx Tablets 80mg bid Unknown 0000 - 2016 Lisinopril / Hx Tablets 10mg 1 by mouth Unknown 0000 - every day 2016 Prednisone / Hx TBPK 10mg (48) 40mg by Unknown 0000 - mouth on 06/19/172016 tapering by 10mg every day until gone Lasix / Hx Tablets 40mg 1 1/2 Unknown 0000 - tablets (60mg) by 2017 mouth twice a day Spiriva / Hx Capsules 18mcg 1 unit Unknown Handihaler 0000 - inhalation 2016 Ergocalciferol / Hx [id number] weekly Unknown 0000 - 2016 Spirulina / Hx 1 tablet Unknown 0000 - daily 2016 Eplerenone / Hx Tablets 25mg 1 by mouth Unknown 0000 - every day 2016 Immunizations CPT Code Status Date Vaccine Reaction Lot # [id number] Given 06/29/2017 Influenza Virus Vaccine, no immediate reaction, [id number] Quadrivalent, Split, pt tolerated well Preservative Free Vital Signs Date Vital Result Comment 09/28/2017 Height 72 inches 6'0" Weight 247.00 lb Heart Rate 76 /min BP Systolic Sitting 150 mmHg BP Diastolic Sitting 84 mmHg Body Temperature 97.8 F O2 % BldC Oximetry 92 % on 3L BMI (Body Mass Index) 33.5 kg/m2 08/31/2017 Height 72 inches 6'0" Weight 236.00 [...] Test Date Test Result H/L Range Note CBC Auto Diff 09/17/2017 White Blood Count 9.8 10^3/uL 3.5-10.8 Red Blood Count 4.05 10^6/uL 4.0-5.4 Hemoglobin 11.5 g/dL Low 14.0-18.0 Hematocrit 35 % Low 42-52 Mean Corpuscular Volume 87 fL 80-94 Mean Corpuscular Hemoglobin 28 pg 27-31 Mean Corpuscular HGB Conc 33 g/dL 31-36 Red Cell Distribution Width 16 % High 10.5-15 Platelet Count 146 10^3/uL Low 150-450 Mean Platelet Volume 9 um3 7.4-10.4 Abs Neutrophils 7.5 10^3/uL 1.5-7.7 Abs Lymphocytes 1.0 10^3/uL 1.0-4.8 Abs Monocytes 0.7 10^3/uL 0-0.8 Abs Eosinophils 0.5 10^3/uL 0-0.6 Abs Basophils 0.1 10^3/uL 0-0.2 Abs Nucleated RBC 0 10^3/uL Granulocyte % 76.3 % 38-83 Lymphocyte % 10.7 % Low 25-47 Monocyte % 6.8 % 1-9 Eosinophil % 4.8 % 0-6 Basophil % 1.4 % 0-2 Nucleated Red Blood Cells % 0 Inr/Protime 09/17/2017 Inr 1.17 High 0.77-1.02 1 Laboratory test finding 09/17/2017 B-Type Natriuretic 267 pg/mL High 2 Peptide BNP Troponin-I (TnI) 0.01 ng/mL <0.04 Comp Metabolic Panel 09/17/2017 Sodium 140 mmol/L 133-145 Chloride 110 mmol/L 101-111 Co2 Carbon Dioxide 27 mmol/L 22-32 Glucose 148 mg/dL High 70-100 Blood Urea Nitrogen 52 mg/dL High 6-24 Creatinine 1.29 mg/dL High 0.67-1.17 BUN/Creatinine Ratio 40.3 High 8-20 Calcium 8.2 mg/dL Low 8.6-10.3 Total Protein 6.2 g/dL Low 6.4-8.9 Albumin 3.4 g/dL 3.2-5.2 Globulin 2.8 g/dL 2-4 Albumin/Globulin Ratio 1.2 1-3 Total Bilirubin 0.50 mg/dL 0.2-1.0 Alkaline Phosphatase 105 U/L High 34-104 Alt 22 U/L 7-52 Ast 17 U/L 13-39 Egfr Non- 54.3 >60 Egfr 69.8 >60 3 Potassium 6.4 mmol/L High 3.5-5.0 4 Anion Gap 3 mmol/L 2-11 Laboratory test finding 09/17/2017 Lactic Acid 0.9 mmol/L 0.5-2.0 5 Comp Metabolic Panel 07/17/2017 Sodium 138 mmol/L [...] Egfr Non- 26.0 >60 Egfr 33.5 >60 6 Potassium 5.2 mmol/L High 3.5-5.0 Anion Gap 9 mmol/L 2-11 Laboratory test finding 07/17/2017 Magnesium 2.1 mg/dL 1.9-2.7 Lipase 28 U/L 11.0-82.0 Creatine Kinase(CK) 31 U/L 10-223 C Reactive Protein 23.94 mg/L High < 5.00 7 Troponin-I (TnI) 0.01 ng/mL <0.04 CKMB 07/17/2017 CKMB ng/mL 1.0 ng/mL 0.6-6.3 Laboratory test finding 07/17/2017 TSH (Thyroid Stim Horm) 3.13 mcIU/mL 0.34-5.60 Procalcitonin 0.6 ng/mL High <0.6 8 Blood Culture SEE RESULT BELOW 9 Laboratory test finding 07/17/2017 Partial Thrombo Time 35.0 seconds 26.0 -36.3 PTT D Dimer Quantitative 241 ng/mL High Less Than 230 10 Lactic Acid 1.4 mmol/L 0.5-2.0 11 Inr/Protime 07/17/2017 Inr 1.24 High 0.89-1.11 CBC Auto Diff 07/17/2017 White Blood Count [...] 0-2 Nucleated Red Blood Cells % 0 Laboratory test finding 07/17/2017 B-Type Natriuretic Peptide BNP 178 pg/mL High 12 1 Please note the change in INR reference range effective 17. 2 >100 to <200 pg/mL: likely compensated congestive heart failure (CHF) 200 to 400 pg/mL: likely moderate CHF >400 pg/mL: likely moderate to severe CHF 3 Because ethnic data is not always readily [...] 15-29 5 Kidney failure <15 (or dialysis) 4 Critical Result K:6.4 Called to [email or web address] at: 14:00:49 by:[id number] Read back by:[id number] 5 [place] Severe Sepsis and Septic Shock Management Bundle Measure requires all lactic acids initially measuring >2.0 mmol/L be repeated. 6 Because ethnic data is not always readily [...] 15-29 5 Kidney failure <15 (or dialysis) 7 Acute inflammation: >10.00 8 Interpretive information available on 115 network disks Lab Test Catalog at [email or web address] 9 SEE RESULT BELOW Name: JAYA STORY : [address]: Daisha Robb DO Acct: [id number] Unit: [id number] AGE: 77 Location: [place] [address] Re07/18/17 SEX: M Status: ADM IN SPEC: [id number] NIGEL: 07/17/[address] [facility] [address]: Crow Huerta MD REQ: [id number] RECD: 07/17/17 STATUS: RES RADHA DR: Santiago Harris LAY OUT AND DETAIL DRAFTER _ SOURCE: BLOOD,VENO SPDESC: ORDERED: Blood Cult COMMENTS: Patient is On Antibiotics? NO Procedure Result Reported Site Aerobic Culture Bottle Preliminary 07/18/17- 1642 ML No Growth Day 1 Anaerobic Culture Bottle Preliminary 07/18/17- 1642 ML No Growth Day 1 * ML - MAIN LAB ([facility]) . END OF REPORT * ML=Testing performed at Main Lab DEPARTMENT OF PATHOLOGY, [address] [place] [address] Carl Reece M.D. Director [facility] # [id number] Please note: The following may produce a false positive D Dimer test: - Rheumatoid factor greater than 60 IU/ml - Plasma hemoglobin greater than 0.05 gm/dl - Bilirubin greater than 50 mg/dl - Lipids greater than 1000 mg/dl - FDP greater than 20 ug/ml 11 [facility] Severe Sepsis and Septic Shock Management Bundle Measure requires all lactic acids initially measuring >2.0 mmol/L be repeated. 12 >100 to <200 pg/mL: likely compensated congestive heart failure (CHF) 200 to 400 pg/mL: likely moderate CHF >400 pg/mL: likely moderate to severe CHF Procedures Date CPT Code Description Status 07/15/2017 32551 Polysomnography Sleep Staging 4+ Parameters W/Cpap Completed 07/12/2017 75270 EKG Tracing & Interpretation Completed 06/23/2017 72700 ECHO Transthorasic Realtime 2D W Doppler & Color Completed Flow Hosp Encounters Type Date Location Provider CPT E/M Dx Office Visit 09/21/2017 9:23a [facility], [place] [address] J44.1 Hospitalists E87.5 I50.33 E11.59 Office Visit 09/20/2017 9:22a [facility],[place] [address] J44.1 Hospitalists E87.5 I50.33 E11.59 Office Visit 09/19/2017 9:22a [facility], [place] [address] I50.33 Hospitalists E87.5 E11.59 J44.1 Office Visit 09/18/2017 9:20a [facility], [place] [address] I50.33 Hospitalists E87.5 J44.1 E11.59 Office Visit 08/31/2017 9:00a [facility] [place] [address] J44.1 [facility] G47.33 R09.02 Office Visit 08/24/2017 2:40p [facility] [place] [place] [address] I65.23 [facility] FACC J44.9 I10 N18.9 I48.91 Z95.2 Office Visit 07/17/2017 7:06a [facility], Daisha Robb, [address] J44.9 Hospitalists Elisha J18.1 I10 N17.9 Office Visit 07/12/2017 10:40a [facility] [place] [place] [address] Z95.2 [facility] FACC I65.23 I48.91 N18.9 E78.5 I12.9 I50.9 Office Visit 07/11/2017 11:45a [facility] [place] [address] J44.9 [facility] R06.02 G47.33 R09.02 Office Visit 06/29/2017 3:00p [facility] Internal Medicine - Santiago Harris, [place] [address] Z95.2 J44.1 E78.5 I10 F41.9 Z23 J44.9 Office Visit 06/24/2017 11:09a [facility], [place] [address] J44.1 Hospitalists I50.9 E78.5 I10 Office Visit 06/23/2017 11:09a [facility], [place] [address] J44.1 Hospitalists I50.9 E78.5 I10 Office Visit 06/22/2017 11:08a [facility],pc Laci Abel, [address] J44.1 Hospitalists N.P. I50.9 E78.5 I10 Plan of Care Future Appointment(s):10/14/2017 2:20 pm - PATTI Monique at [facility] Medicine - [address]/12/2017 9:00 am - Radha Delgado MD at [facility]09/28/2017 - PATTI MoniqueJ44.1 Chronic obstructive pulmonary disease w (acute) exacerbationComments:Please continue with prednisone taper as instructed at the hospitalFollow up with Dr. Delgado.I wouldlike to see you back a week after your visit with her.Follow up:Late September for chronic conditions Will nee A1CI50.33 Acute on chronic diastolic ( congestive) heart wlrhjlbD13.59 Type 2 diabetes mellitus with oth circulatory complicationsComments:Will check your blood sugar control at next OVG47.33 Obstructive sleep apnea (adult) (pediatric)Comments:Please call for f/u for setting up your CPAP.I10 Essential (primary) hypertensionComments:Continue on present medication rgioknQ62.5 Hyperlipidemia, unspecifiedComments:Discussed dietary guidelines; avoiding trans and saturated fats.
[2017-10-08 16:18] LABS: ABS Basophils 0.1 10^3/ul (0-0.2); ABS Eosinophils 0.2 10^3/ul (0-0.6); ABS Lymphocytes 1.3 10^3/ul (1.0-4.8); ABS Monocytes 0.6 10^3/ul (0-0.8); ABS Nucleated RBC 0 10^3/ul; Eosinophil % 2.7 % (0-6); Hematocrit 34 % (42-52); Hemoglobin 11.1 g/dl (14.0-18.0); Mean Corpuscular HGB Conc 33 g/dl (31-36); Mean Corpuscular Hemoglobin 29 pg (27-31); Mean Corpuscular Volume 87 fL (80-94); Mean Platelet Volume 9 um3 (7.4-10.4); Nucleated Red Blood Cells % 0; Platelet Count 131 10^3/ul (150-450); Red Blood Count 3.86 10^6/ul (4.0-5.4); Red Cell Distribution Width 15 % (10.5-15); White Blood Count 9.3 10^3/ul (3.5-10.8)
--- NOTE | 2017-10-08 16:23 | RAD ---
HISTORY: Cough, shortness of breath COMPARISONS: September 17, 2017 VIEWS: 1: frontal portable view of the chest at 4:12 PM FINDINGS: LINES AND TUBES: None. CARDIOMEDIASTINAL SILHOUETTE: The cardiac silhouette is enlarged. The cardiomediastinal silhouette is otherwise normal for portable technique. PLEURA: There is blunting of the right costophrenic angle. LUNG PARENCHYMA: There is a diffuse reticular pattern with indistinct pulmonary vessels. There is patchy alveolar opacification in the right lung base. ABDOMEN: The upper abdomen is clear. There is no subphrenic gas. BONES AND SOFT TISSUES: Degenerative changes are noted . IMPRESSION: 1. CARDIOMEGALY WITH PULMONARY INTERSTITIAL EDEMA. 2. SMALL RIGHT PLEURAL EFFUSION WITH RIGHT BASILAR ATELECTASIS VERSUS CONSOLIDATION.
[2017-10-08] MEDS ORDERED: methylPREDNISolone 125 MG* 2 ML VIAL IV ONE (17:39)
[2017-10-08] MEDS ORDERED: Albuterol/Ipratropium NEB.SOL* Albuterol 2.5 MG/Ipratropium 0.5 MG 3 ML INH ONE (17:45)
[2017-10-08] MEDS ORDERED: Albuterol/Ipratropium NEB.SOL* Albuterol 2.5 MG/Ipratropium 0.5 MG 3 ML ONE (17:47)
[2017-10-08] MEDS ORDERED: Furosemide IV* 10 MG/ML VIAL (40 MG) IV SLOW PU ONE (18:24)
[2017-10-08] MEDS ORDERED: Nitroglycerin TAB 0.4 MG* 0.4 MG TAB SL ONE (18:24)
[2017-10-08] MEDS ORDERED: Nitroglycerin 2% OINT* 1 GM PAK TOPICAL ONE (18:29)
[2017-10-08] MEDS ORDERED: Furosemide IV* 10 MG/ML 10 ML VIAL (100 MG) IV ONE (18:33)
[2017-10-08] MEDS ORDERED: Albuterol HFA INHALER* 8 gm MDI INH PRN (19:35)
[2017-10-08] MEDS: Albuterol/Ipratropium NEB.SOL* Albuterol 2.5 MG/Ipratropium 0.5 MG 3 ML INH PRN (21:33)
[2017-10-08] MEDS ORDERED: Heparin VIAL(*) 5000 UNITS/ML VIAL (FIVE THOUSAND) SUBCUT SCH (22:00)
[2017-10-08] MEDS: Apixaban* 5 MG TAB PO SCH (22:05)
[2017-10-08] MEDS: Atorvastatin* 40 MG TAB PO SCH (22:05)
--- NOTE | 2017-10-08 23:25 | HP ---
CC: Santiago Harris NP; Dr. Delgado; Dr. Garcia * HOSPITAL MEDICINE HISTORY AND PHYSICAL: DATE OF ADMISSION: 10/08/17 PRIMARY CARE PROVIDER: Santiago Harris NP HEALTH UNDERWRITER: Dr. Delgado. UROGYNECOLOGY PHYSICIAN: Dr. Garcia. ATTENDING PHYSICIAN: Alonzo Byrd MD * (dictation provided by Gisel Moraes NP). CHIEF COMPLAINT: Shortness of breath. HISTORY OF PRESENT ILLNESS: Mr. Trenton Story is a 77-year-old male with a past medical history of COPD with a chronic hypoxic respiratory failure on 3 L nasal cannula with diastolic congestive heart failure on chronic Lasix therapy, hypertension, AFib on Eliquis, and history of bioprosthetic aortic valve replacement in 2017, who presented to the hospital today with concern for shortness of breath. Mr. Story was last admitted to our hospital from through 09/21/17, at which time he was treated for rwlhe-oy-dwglvzm hypoxic respiratory failure secondary to CHF and COPD exacerbation. Since being discharged on 09/21/17, Mr. Story has been seen by Dr. Garcia, his pourer , on 09/28/17. At that time, it was felt that Mr. Story was doing well and the only change was for him to discontinue lisinopril due to his episode of hyperkalemia during the last hospitalization. Mr. Story completed a course of prednisone many days ago; however, over the past 2 days he has noted increasing shortness of breath. He reports being unable to walk from his bedroom into his kitchen. He has severe dyspnea on exertion. He is not able to lie flat to go to sleep ( this seems to be a chronic issue as described per him). He denies any new cough. He has had no fever. He has no chest pain. He has no nausea, vomiting , diarrhea, abdominal pain. In the emergency room, Mr. Story had a chest x-ray that was consistent with CHF. He had a BNP which was only 114. He does not have pronounced lower extremity edema. His O2 saturation is low 90s on his home 3 L nasal cannula, but he appears short of breath at rest. PAST MEDICAL HISTORY: 1. Chronic hypoxic respiratory failure secondary to COPD and CHF. 2. COPD. 3. Type 2 diabetes, diet controlled. 4. CKD Stage 5. Hypertension. 6. AFib, on Eliquis. 7. Diastolic congestive heart failure. 8. History of aortic valve replacement with bioprosthetic valve in 2017 at [facility] in [place]. 9. Anxiety. 10. Hyperlipidemia. 11. Obstructive sleep apnea, on BiPAP. 12. Pulmonary hypertension. MEDICATIONS: 1. Prednisone 10 mg p.o. daily. 2. Symbicort 80-4.5 two puffs p.o. b.i.d. 3. Albuterol inhaler 2 puffs inhaled q.4 hours p.r.n. 4. Albuterol via nebulizer 2.5 mg nebulize q.4 hours p.r.n. 5. Atorvastatin 40 mg p.o. daily. 6. Aspirin 81 mg p.o. daily. 7. Apixaban 5 mg p.o. b.i.d. 8. Metoprolol succinate 50 mg p.o. daily. 9. Furosemide 40 mg p.o. b.i.d. 10. Tiotropium 1 cap inhale daily. ALLERGIES: No known drug allergies. FAMILY HISTORY: The patient reports his father at age 95 related to heart issues and mother at 82 of unclear causes. SOCIAL HISTORY: The patient was a long-term smoker, he quit about 10 years ago when he was diagnosed with COPD. No report of alcohol use or drug use. He lives with his , who is his healthcare proxy. REVIEW OF SYSTEMS: A 14-point review of systems was completed with Mr. Story and all those not mentioned above were negative. PHYSICAL EXAMINATION GENERAL: Mr. Story is lying in the bed. He appears short of breath at rest, but he is not in any acute distress. VITAL SIGNS: Temperature 99.2, pulse rate 107, respiratory rate 18, O2 saturation 92% on 3 L nasal cannula, blood pressure 144/54. LUNGS: Wheezing bilaterally with rhonchi in the bases. There is no accessory muscle use. HEART: S1, S2 and irregular. ABDOMEN: Soft and protuberant. Bowel sounds positive x4. There is no pain to palpation. EXTREMITIES: No cyanosis. Positive for minimal edema bilaterally. SKIN: Intact. NEUROLOGIC: He is alert. He is oriented x3. He moves all extremities equally. There is no facial asymmetry or focal weakness. DIAGNOSTIC STUDIES/LAB DATA: WBC 9.3, hemoglobin 11.1, hematocrit 34, platelet count 131,000. D-dimer less than 200. Sodium 140, potassium 5.0, chloride 105, serum bicarbonate 31, BUN 55, creatinine 1.20, glucose 109. Troponin 0.03. Chest x-ray shows cardiomegaly with pulmonary interstitial edema, small right pleural effusion with right basilar atelectasis versus consolidation. ASSESSMENT/PLAN: Mr. Story is a 77-year-old male with a past medical history of chronic hypoxic respiratory failure on 3 L nasal cannula at home secondary to diastolic congestive heart failure and chronic obstructive pulmonary disease. He also has a history of atrial fibrillation on Eliquis, CKD obstructive sleep apnea with questionable use of home CPAP due to inavailability and pulmonary hypertension, who presents today again with shortness of breath. Our plans are for observation in the hospital for the followin. Shortness of breath: It appears the patient has again components of congestive heart failure and chronic obstructive pulmonary disease exacerbation. We will plan to treat as per the last hospitalization with high dose steroids with Solu-Medrol 60 mg IV b.i.d. He normally takes Lasix 40 mg b.i.d. The patient has received 80 mg IV in the emergency department. He will have 40 mg again IV tomorrow. He also has a history of CKD, plan to monitor his a basic metabolic panel closely. Plan to also monitor I's and O's and daily weights. Despite showing congestive heart failure on his chest x-ray, he actually does not have very much edema and per his report has had no weight gain. 2. Atrial fibrillation. His heart rate is slightly over 100, but is essentially rate controlled. Plan to continue his metoprolol and Eliquis. 3. Hypertension. Plan to continue him on metoprolol. The patient's lisinopril has been held per Dr. Garcia, which I feel is appropriate given his history of hyperkalemia. 4. Type 2 diabetes. The patient states he is diet controlled at home. I do not plan to order insulin or blood glucose at this time. 5. Chronic kidney disease, stage 3: Is at baseline. We will need to monitor closely given his need for diuresis. 6. Obstructive sleep apnea. Plan to continue his home CPAP. 7. DVT prophylaxis: Eliquis. 8. Code status is full code. 9. Disposition: To telemetry floor. The patient has had multiple hospitalizations since moving to [place] late last year. He reports having multiple hospitalizations when he lived in [place] prior to his aortic valve replacement. I think he would be a good candidate for palliative care consult, although at this time he would like to remain full code and would accept intubation. It may be helpful for us to obtain records from [facility] to round out the narrative regarding his hospitalizations and illness. TIME SPENT: Approximately 60 minutes were spent on the admission of this patient, more than half time spent with the patient at the bedside reviewing the events leading up to this hospitalization, performing the physical examination, and reviewing the plan of care. GISEL MORAES NP [id number]/[facility] #: [id number] ADARSH
[2017-10-09] MEDS ORDERED: LORazepam INJ* 2 MG/ML 1 ML VIAL IV PUSH ONE (01:00)
[2017-10-09] MEDS ORDERED: Diltiazem IV* 5 MG/ML 5 ML VIAL (for loading dose/IV Push) (25 MG) IV PUSH ONE (02:00)
[2017-10-09 05:55] LABS: EGFR Non-African American 48.6 (>60)
[2017-10-09] MEDS: Tiotropium CAP.INH* CAP.INH/18 MCG (USE ORDER SET !) INH SCH (07:24)
[2017-10-09] MEDS ORDERED: Dextrose 50% Syringe 50 ML* 25 GM/50 ML SYRINGE IV PUSH PRN (07:27)
[2017-10-09] MEDS: Insulin LISPRO* 1 UNITS UNIT SUBCUT SCH ×3 (08:15→17:27)
[2017-10-09] MEDS: methylPREDNISolone SOD 40 MG* 1 ML VIAL IV SCH ×2 (08:17→21:03)
[2017-10-09] MEDS: Aspirin EC Low Dose* 81 MG TAB.EC PO SCH (08:18)
[2017-10-09] MEDS: Apixaban* 5 MG TAB PO SCH ×2 (08:18→21:03)
[2017-10-09] MEDS ORDERED: Spiriva Inhaler DEVICE* 1 EACH DEVICE INH ONE (09:00)
[2017-10-09] MEDS ORDERED: Furosemide IV* 10 MG/ML VIAL (40 MG) IV ONE (09:00)
[2017-10-09] MEDS ORDERED: Metoprolol Succinate XL TAB* 50 MG PO SCH (09:00)
--- NOTE | 2017-10-09 11:06 | PN ---
Subjective Date of Service: 10/09/17 Interval History: Patient seen and examined at bedside. Denies fever, chills, chest discomfort, N/ V/D. Pt states that he continues to have shortness of breath above his baseline. Pt's reports that his abdomen is larger than normal, but he denies constipation. He is suppose to be having a renal US to eval for renal artery stenosis and carotid us per his soon as an outpatient. Tele: Afib, rate 70-110's. Family History: Unchanged from Admission Social History: Unchanged from Admission Past Medical History: Unchanged from Admission Objective Active Medications: Albuterol (Ventolin Hfa Inhaler*) 2 puff INH Q4H PRN Reason: SOB/WHEEZING Albuterol/Ipratropium (Duoneb (Albuterol 2.5 Mg/Ipratropium 0.5 Mg)) 1 neb INH Q4H PRN Reason: SOB/WHEEZING Apixaban (Eliquis*) 5 mg PO BID SHUN Aspirin (Aspirin Ec Low Dose*) 81 mg PO DAILY [facility] Atorvastatin Calcium (Lipitor*) 40 mg PO 2100 [facility] Dextrose (D50w Syringe 50 Ml*) 12.5 gm IV PUSH .FOR FS < 60 - SS PRN Reason: FS < 60 Insulin Human Lispro (Humalog*) 0 - 10 units SUBCUT AC [facility] Methylprednisolone Sodium Succinate (Solu-Medrol 40 Mg) 60 mg IV BID [facility] Metoprolol Succinate (Toprol Xl Tab*) 50 mg PO DAILY [facility] Tiotropium [place] (Spiriva Cap.Inh*) 1 cap INH DAILY [facility] Vital Signs - 8 hr 10/09/17 10/09/17 10/09/17 03:43 07:34 07:58 Temperature 98.0 F 97.5 F Pulse Rate 111 104 111 Respiratory 16 20 18 Rate Blood Pressure 151/53 153/75 (mmHg) O2 Sat by Pulse 93 92 93 Oximetry 10/09/17 07:59 Temperature Pulse Rate 11 Respiratory 19 Rate Blood Pressure (mmHg) O2 Sat by Pulse 93 Oximetry Oxygen Devices in Use Now: Nasal Cannula - 2L Appearance: NAD, sitting up in a chair Ears/Nose/Mouth/Throat: Mucous Membranes Moist Respiratory: Symmetrical Chest Expansion and Respiratory Effort Cardiovascular: NL Sounds; No Murmurs; No JVD, - - Heart rate irregular Abdominal: - - Bowel sounds present, abdomen large, soft, non tender Extremities: - - Trace to 1+ bilateral LE edema Skin: No Rash or Ulcers, - - Chronic skin changes to bilateral LE Neurological: Alert and Oriented x 3, NL Muscle Strength and Tone Lines/Tubes/Other Access: Clean, Dry and Intact Peripheral IV - site benign Nutrition: Taking PO's Result Diagrams: 10/08/17 16:08 10/09/17 05:17 Assess/Plan/Problems-Billing Assessment: Mr. Story is a 77 yo male with PMH significant for chronic hypoxic respiratory failure, COPD, diastolic HF, DM, HTN, Afib, anxiety, HLD, ANA - BiPAP, and pulmonary HTN who presented to the emergency room with complaints of shortness of breath. - Patient Problems (1) Shortness of breath Code(s): R06.02 - SHORTNESS OF BREATH SNOMED Code(s): 311441877 Comment: - Suspect secondary to CHF and COPD exacerbations - Continues to report increased SOB (2) COPD exacerbation Code(s): J44.1 - CHRONIC OBSTRUCTIVE PULMONARY DISEASE W (ACUTE) EXACERBATION SNOMED Code(s): 970661603244778 Comment: - With chronic hypoxic respiratory failure - Received 125mg solumedrol in ED - Continue solumedrol, albuterol nebs, spiriva, dulera, and singular (3) Diastolic CHF Code(s): I50.30 - UNSPECIFIED DIASTOLIC (CONGESTIVE) HEART FAILURE SNOMED Code (s): 743682045 Comment: - With exacerbation - Received 80 mg IV lasix in the ED - Echo 06/2017 - LVEF 65% - Continue lasix - Strict I+O's and daily weights (4) Hyperkalemia Code(s): E87.5 - HYPERKALEMIA SNOMED Code(s): 09258256 Comment: - Repeat BMP in AM (5) Renal insufficiency Code(s): N28.9 - DISORDER OF KIDNEY AND URETER, UNSPECIFIED SNOMED Code(s): 776357996 Comment: - Suspect this may be close to his baseline - Will continue to follow - Outpatient renal artery US to eval for renal artery stenosis (6) Afib Code(s): I48.91 - UNSPECIFIED ATRIAL FIBRILLATION SNOMED Code(s): 11289636 Comment: - Rate mostly controlled - Goal Mg>2, K>4 - Continue metoprolol and eliquis (7) HTN (hypertension) Code(s): I10 - ESSENTIAL (PRIMARY) HYPERTENSION SNOMED Code(s): 41277666 Comment: - BP is under fair control. - Continue home medication regimen. (8) Type II diabetes mellitus Comment: - Glucose 100-280's - HgA1C 7.4% in Jun 2017, not on home meds and diet controlled. - Will start Lispro SSI, and glucose checks Qachs (9) DVT prophylaxis Code(s): ZHD3453 - SNOMED Code(s): 588082875 Comment: - Manolo (10) Full code status Code(s): Z78.9 - OTHER SPECIFIED HEALTH STATUS SNOMED Code(s): 911172017 Status and Disposition: OBV to Inpatient. Discharge to home when medically stable.
--- NOTE | 2017-10-09 19:08 | PN ---
Progress Note - Progress Note Date of Service: 10/09/17 Note: Phone call from KELLY Mirza--5.2 second pause, HR now in 70's, no sx's. Renal diet ordered, metoprolol d/c'd. BMP already ordered for AM.
--- NOTE | 2017-10-09 19:19 | PN ---
Progress Note - Progress Note Date of Service: 10/09/17 Note: Patient reported to nurse that he had chest pain at the time of his sinus pause. ECG ordered. External pacer to be applied.
[2017-10-09] MEDS: Atorvastatin* 40 MG TAB PO SCH (21:03)
[2017-10-09] MEDS: LORazepam INJ* 2 MG/ML 1 ML VIAL IV PRN (23:06)
[2017-10-10] MEDS ORDERED: LORazepam INJ* 2 MG/ML 1 ML VIAL IV ONE (01:22)
[2017-10-10] MEDS: CMCS: Melatonin (NF) 3 MG TAB PO PRN ×2 (01:41→21:43)
[2017-10-10 05:47] LABS: EGFR Non-African American 42.7 (>60)
[2017-10-10] MEDS ORDERED: Sodium Polystyrene ORAL.SOL* 15 GM/60 ML BTL PO ONE ×2 (08:03→15:53)
[2017-10-10] MEDS: Aspirin EC Low Dose* 81 MG TAB.EC PO SCH (08:22)
[2017-10-10] MEDS: methylPREDNISolone SOD 40 MG* 1 ML VIAL IV SCH ×2 (08:23→21:43)
[2017-10-10] MEDS: Insulin LISPRO* 1 UNITS UNIT SUBCUT SCH ×3 (08:23→17:20)
[2017-10-10] MEDS: Apixaban* 5 MG TAB PO SCH ×2 (08:23→21:42)
[2017-10-10] MEDS: Tiotropium CAP.INH* CAP.INH/18 MCG (USE ORDER SET !) INH SCH (08:40)
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
[2017-10-10] MEDS: Furosemide TAB* 40 MG PO SCH ×2 (10:00→17:19)
[2017-10-10] MEDS: LORazepam INJ* 2 MG/ML 1 ML VIAL IV PRN (21:42)
[2017-10-10] MEDS: Atorvastatin* 40 MG TAB PO SCH (21:43)
--- NOTE | 2017-10-10 23:40 | CONS ---
CC: Dr. Delgado; Dr. Emil Garcia * CARDIOLOGY CONSULTATION: DATE OF CONSULT: 10/10/17 INDICATION FOR CONSULTATION: Atrial fibrillation, 5.2 second pause. HISTORY OF PRESENT ILLNESS: The patient is a 77-year-old gentleman with a history of severe COPD, history of diastolic heart failure, diabetes, renal insufficiency, chronic atrial fibrillation, history of possible aortic valve replacement in 2017, who comes into the hospital because of a COPD exacerbation. The patient was admitted to the hospital because of severe shortness of breath. The patient was given treatment for his COPD exacerbation as well as IV Lasix with improvement in shortness of breath. The patient did have increased heart rate in the middle of the night on 10/09/17. At that time, he received 20 mg IV of diltiazem. Yesterday afternoon around 6: 30 in the evening, the patient had a 5.2 second pause that was asymptomatic. It is questioned whether he was asleep at that time. When I went in to see the patient, he was lying flat in bed. He was breathing comfortably. He had no complaints. PAST MEDICAL HISTORY: Significant for COPD, diabetes, stage 2 renal insufficiency, hypertension, chronic atrial fibrillation, diastolic heart failure, and aortic valve replacement. OUTPATIENT MEDICATIONS: 1. Prednisone 10 mg a day. 2. Symbicort inhaler. 3. Albuterol inhaler. 4. Atorvastatin 40 mg a day. 5. Aspirin 81 mg a day. 6. Eliquis 5 mg b.i.d. 7. Metoprolol succinate 50 mg a day. 8. Lasix 40 mg b.i.d. ALLERGIES: No known drug allergies; however, on his last hospitalizations, his lisinopril was stopped due to high potassium levels. FAMILY HISTORY: Father at 95, mother at 82 of natural causes. 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 He has severe COPD. Denies alcohol use. He lives with his . REVIEW OF SYSTEMS: Per his intake sheet. PHYSICAL EXAM: Height is 6 feet, weight 243 pounds, heart rate is 100, blood pressure 156/54, respiratory rate is 18, oxygen saturation 97% on 2 L. Sclerae anicteric. Oropharynx is pink without erythema. Carotids are 2+ without bruits. JVD is normal. Thyroid is normal. Cardiac Exam: Irregular S1, S2 with a 1/6 systolic ejection murmur heard best at the right upper sternal border. PMI is normal. Lungs have diminished breath sounds throughout. There is mild rhonchi. There is minimal rales at the bases. There is no dullness to percussion. Abdomen is soft, nontender, nondistended with normoactive bowel sounds. Extremities show no edema. He has 2+ pulses throughout. The patient is awake and alert and oriented. DIAGNOSTIC STUDIES/LAB DATA: Chemistries within normal limits. Potassium is 5.3, BUN 81, creatinine 1.6, AST and ALT are normal. Troponin is negative at 0.03. BNP is minimally elevated at 114. His EKG shows atrial fibrillation, unchanged from previous EKGs. IMPRESSION: This is a 77-year-old gentleman with a history of chronic atrial fibrillation, was admitted to the hospital with a chronic obstructive pulmonary disease exacerbation. The patient did receive an IV bolus of diltiazem 20 mg early in the evening of 10/09/17. Later on that day at 6 p.m., the patient had a 5- second pause that was asymptomatic and likely occurred when he was asleep. For now, I do not think any other treatment is necessary. The patient's beta- kandy was decreased from 50 mg a day to 25 mg a day. I agree with that. I do not think any other medications are necessary. I do not think the patient requires a pacemaker. The patient does have diastolic dysfunction. The patient was on an Shaun inhibitor at one point, but does have high potassium levels. I would consider adding an ARB with close followup of his potassium. Further followup with Dr. Garcia. [id number]/[facility] #: [id number]
[2017-10-11 05:48] LABS: ABS Basophils 0.1 10^3/ul (0-0.2); ABS Eosinophils 0 10^3/ul (0-0.6); ABS Lymphocytes 0.2 10^3/ul (1.0-4.8); ABS Monocytes 0.4 10^3/ul (0-0.8); ABS Neutrophils 16.7 10^3/ul (1.5-7.7); ABS Nucleated RBC 0 10^3/ul; Eosinophil % 0 % (0-6); Hematocrit 33 % (42-52); Hemoglobin 10.8 g/dl (14.0-18.0); Mean Corpuscular HGB Conc 33 g/dl (31-36); Mean Corpuscular Hemoglobin 28 pg (27-31); Mean Corpuscular Volume 86 fL (80-94); Mean Platelet Volume 9 um3 (7.4-10.4); Nucleated Red Blood Cells % 0; Platelet Count 140 10^3/ul (150-450); Red Blood Count 3.83 10^6/ul (4.0-5.4); Red Cell Distribution Width 15 % (10.5-15); White Blood Count 17.4 10^3/ul (3.5-10.8)
[2017-10-11 06:02] LABS: EGFR Non-African American 42.3 (>60)
[2017-10-11] MEDS: Furosemide TAB* 40 MG PO SCH ×2 (08:31→17:29)
[2017-10-11] MEDS: Insulin LISPRO* 1 UNITS UNIT SUBCUT SCH ×3 (08:31→17:29)
[2017-10-11] MEDS: Aspirin EC Low Dose* 81 MG TAB.EC PO SCH (08:31)
[2017-10-11] MEDS: Metoprolol Succinate XL TAB* 25 MG PO SCH (08:31)
[2017-10-11] MEDS: methylPREDNISolone SOD 40 MG* 1 ML VIAL IV SCH ×2 (08:31→20:48)
[2017-10-11] MEDS: Apixaban* 5 MG TAB PO SCH ×2 (08:34→20:48)
[2017-10-11] MEDS: Tiotropium CAP.INH* CAP.INH/18 MCG (USE ORDER SET !) INH SCH (08:34)
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
--- NOTE | 2017-10-11 17:36 | PN ---
Subjective Date of Service: 10/11/17 Interval History: States that his breathing continues to be poor, feels weak. Denies Chest pain, Denies ABD pain, N/V/D. Family History: Unchanged from Admission Social History: Unchanged from Admission Past Medical History: Unchanged from Admission Objective Active Medications: Albuterol (Ventolin Hfa Inhaler*) 2 puff INH Q4H PRN PRN Reason: SOB/WHEEZING Albuterol/Ipratropium (Duoneb (Albuterol 2.5 Mg/Ipratropium 0.5 Mg)) 1 neb INH Q4H PRN PRN Reason: SOB/WHEEZING Last Admin: 10/08/17 21:33 Dose: 1 neb Apixaban (Eliquis*) 5 mg PO BID [facility] Last Admin: 10/11/17 08:34 Dose: 5 mg Aspirin (Aspirin Ec Low Dose*) 81 mg PO DAILY [facility] Last Admin: 10/11/17 08:31 Dose: 81 mg Atorvastatin Calcium (Lipitor*) 40 mg PO 2100 [facility] Last Admin: 10/10/17 21:43 Dose: 40 mg Dextrose (D50w Syringe 50 Ml*) 12.5 gm IV PUSH .FOR FS < 60 - SS PRN PRN Reason: FS < 60 Furosemide (Lasix Tab*) 40 mg PO 0800,1700 [facility] Last Admin: 10/11/17 17:29 Dose: 40 mg Insulin Human Lispro (Humalog*) 0 - 10 units SUBCUT AC [facility] PRN Reason: Protocol Last Admin: 10/11/17 17:29 Dose: 4 units Lorazepam (Ativan Inj*) 0.5 mg IV BEDTIME PRN PRN Reason: SLEEP Last Admin: 10/10/17 21:42 Dose: 0.5 mg Melatonin (Melatonin (Nf)) 3 mg PO BEDTIME PRN; Protocol PRN Reason: Sleep Last Admin: 10/10/17 21:43 Dose: 3 mg Methylprednisolone Sodium Succinate (Solu-Medrol 40 Mg) 60 mg IV BID [facility] Last Admin: 10/11/17 08:31 Dose: 60 mg Metoprolol Succinate (Toprol Xl Tab*) 25 mg PO DAILY [facility] Last Admin: 10/11/17 08:31 Dose: 25 mg Tiotropium [place] (Spiriva Cap.Inh*) 1 cap INH DAILY [facility] Last Admin: 01/23/18 08:34 Dose: 1 cap Oxygen Devices in Use Now: Nasal Cannula Appearance: appears comfortable sitting on the bed. no respiratory distress noted. Awake to verbal. Eyes: No Scleral Icterus Ears/Nose/Mouth/Throat: Clear Oropharnyx, Mucous Membranes Moist Neck: NL Appearance and Movements; NL JVP, Trachea Midline Respiratory: Symmetrical Chest Expansion and Respiratory Effort - diminshed, exp wheezes bilat lower lobes. Cardiovascular: NL Sounds; No Murmurs; No JVD, No Edema Abdominal: NL Sounds; No Tenderness; No Distention Extremities: No Edema, No Clubbing, Cyanosis Skin: No Rash or Ulcers Neurological: Alert and Oriented x 3 Nutrition: Taking PO's Result Diagrams: 10/11/17 04:53 10/11/17 04:53 Assess/Plan/Problems-Billing Assessment: Mr. Story is a 77 yo male with PMH significant for chronic hypoxic respiratory failure, COPD, diastolic HF, DM, HTN, Afib, anxiety, HLD, ANA - BiPAP, and pulmonary HTN who presented to the emergency room with complaints of shortness of breath. - Patient Problems (1) COPD exacerbation Current Visit: Yes Status: Acute Code(s): J44.1 - CHRONIC OBSTRUCTIVE PULMONARY DISEASE W (ACUTE) EXACERBATION SNOMED Code(s): 712604672344735 Comment: - With chronic hypoxic respiratory failure - Received 125mg solumedrol in ED - Continue solumedrol, albuterol nebs, spiriva, dulera, and singular (2) Hyperkalemia Current Visit: Yes Status: Acute Code(s): E87.5 - HYPERKALEMIA SNOMED Code (s): 51102672 Comment: dose of kayexalate yesterday Potassium level 4.7 with this AM lab work (3) Shortness of breath Current Visit: Yes Status: Acute Code(s): R06.02 - SHORTNESS OF BREATH SNOMED Code(s): 596218816 Comment: - Suspect secondary to CHF and COPD exacerbations - Continues to report increased SOB (4) Diastolic CHF Current Visit: Yes Status: Chronic Code(s): I50.30 - UNSPECIFIED DIASTOLIC ( CONGESTIVE) HEART FAILURE SNOMED Code(s): 870632769 Comment: - With exacerbation - Received 80 mg IV lasix in the ED - Echo 06/2017 - LVEF 65% - Resume home lasix - Strict I+O's and daily weights (5) Renal insufficiency Current Visit: Yes Status: Chronic Code(s): N28.9 - DISORDER OF KIDNEY AND URETER, UNSPECIFIED SNOMED Code(s): 653123151 Comment: - Suspect this may be close to his baseline - Will continue to follow - Outpatient renal artery US to eval for renal artery stenosis (6) HTN (hypertension) Current Visit: No Status: Chronic Code(s): I10 - ESSENTIAL (PRIMARY) HYPERTENSION SNOMED Code(s): 45704879 Comment: - BP is under fair control. - Continue home medication regimen. (7) Type II diabetes mellitus Current Visit: No Status: Chronic Comment: - Glucose 190-230's - HgA1C 7.4% in Jun 2017, not on home meds and diet controlled. - Continue Lispro SSI, and glucose checks Qachs (8) Leukocytosis Current Visit: Yes Status: Acute Code(s): D72.829 - ELEVATED WHITE BLOOD CELL COUNT, UNSPECIFIED SNOMED Code(s): 614830831 Comment: suspect this is related to steroid use Status and Disposition: OBV to Inpatient. Discharge to home when medically stable. palliative care consult today, patient will go home with hospice
[2017-10-11] MEDS: Atorvastatin* 40 MG TAB PO SCH (20:48)
[2017-10-12] MEDS: Albuterol/Ipratropium NEB.SOL* Albuterol 2.5 MG/Ipratropium 0.5 MG 3 ML INH PRN (00:20)
[2017-10-12] MEDS: CMCS: Melatonin (NF) 3 MG TAB PO PRN ×2 (00:35→23:21)
[2017-10-12] MEDS: LORazepam INJ* 2 MG/ML 1 ML VIAL IV PRN ×2 (00:35→23:21)
[2017-10-12] MEDS: Tiotropium CAP.INH* CAP.INH/18 MCG (USE ORDER SET !) INH SCH (07:53)
[2017-10-12] MEDS: methylPREDNISolone SOD 40 MG* 1 ML VIAL IV SCH ×2 (08:40→21:17)
[2017-10-12] MEDS: Insulin LISPRO* 1 UNITS UNIT SUBCUT SCH ×3 (08:42→17:09)
[2017-10-12] MEDS: Metoprolol Succinate XL TAB* 25 MG PO SCH (08:43)
[2017-10-12] MEDS: Apixaban* 5 MG TAB PO SCH ×2 (08:43→21:17)
[2017-10-12] MEDS: Aspirin EC Low Dose* 81 MG TAB.EC PO SCH (08:43)
[2017-10-12] MEDS: Furosemide TAB* 40 MG PO SCH ×2 (08:43→16:49)
--- NOTE | 2017-10-12 19:29 | PN ---
Subjective Date of Service: 10/12/17 Interval History: Patient states that he continues to feel short of breath with walking. Denies shortness of breath at rest. Denies CP or ABd pain, Denies N/V/D. Family History: Unchanged from Admission Social History: Unchanged from Admission Past Medical History: Unchanged from Admission Objective Active Medications: Albuterol (Ventolin Hfa Inhaler*) 2 puff INH Q4H PRN PRN Reason: SOB/WHEEZING Albuterol/Ipratropium (Duoneb (Albuterol 2.5 Mg/Ipratropium 0.5 Mg)) 1 neb INH Q4H PRN PRN Reason: SOB/WHEEZING Last Admin: 10/12/17 00:20 Dose: 1 neb Apixaban (Eliquis*) 5 mg PO BID [facility] Last Admin: 10/12/17 08:43 Dose: 5 mg Aspirin (Aspirin Ec Low Dose*) 81 mg PO DAILY [facility] Last Admin: 10/12/17 08:43 Dose: 81 mg Atorvastatin Calcium (Lipitor*) 40 mg PO 2100 [facility] Last Admin: 10/11/17 20:48 Dose: 40 mg Dextrose (D50w Syringe 50 Ml*) 12.5 gm IV PUSH .FOR FS < 60 - SS PRN PRN Reason: FS < 60 Furosemide (Lasix Tab*) 40 mg PO 0800,1700 [facility] Last Admin: 10/12/17 16:49 Dose: 40 mg Insulin Human Lispro (Humalog*) 0 - 10 units SUBCUT AC [facility] PRN Reason: Protocol Last Admin: 10/12/17 17:09 Dose: 4 units Lorazepam (Ativan Inj*) 0.5 mg IV BEDTIME PRN PRN Reason: SLEEP Last Admin: 10/12/17 00:35 Dose: 0.5 mg Melatonin (Melatonin (Nf)) 3 mg PO BEDTIME PRN; Protocol PRN Reason: Sleep Last Admin: 10/12/17 00:35 Dose: 3 mg Methylprednisolone Sodium Succinate (Solu-Medrol 40 Mg) 60 mg IV BID [facility] Last Admin: 10/12/17 08:40 Dose: 60 mg Metoprolol Succinate (Toprol Xl Tab*) 25 mg PO DAILY [facility] Last Admin: 10/12/17 08:43 Dose: 25 mg Tiotropium [place] (Spiriva Cap.Inh*) 1 cap INH DAILY [facility] Last Admin: 10/12/17 07:53 Dose: 1 cap Vital Signs - 8 hr 10/12/17 15:43 Temperature 99.0 F Pulse Rate 84 Respiratory 16 Rate Blood Pressure 135/47 (mmHg) O2 Sat by Pulse 95 Oximetry Oxygen Devices in Use Now: Nasal Cannula Appearance: appears comfortable sitting on the edge of the bed. Eyes: No Scleral Icterus Ears/Nose/Mouth/Throat: Clear Oropharnyx, Mucous Membranes Moist Neck: NL Appearance and Movements; NL JVP, Trachea Midline Respiratory: Symmetrical Chest Expansion and Respiratory Effort, - - diminshed t /o bilat Cardiovascular: NL Sounds; No Murmurs; No JVD, RRR, No Edema Abdominal: NL Sounds; No Tenderness; No Distention Extremities: No Edema, No Clubbing, Cyanosis Skin: No Rash or Ulcers Neurological: Alert and Oriented x 3 Nutrition: Taking PO's Result Diagrams: 10/11/17 04:53 10/11/17 04:53 Assess/Plan/Problems-Billing Assessment: Mr. Story is a 77 yo male with PMH significant for chronic hypoxic respiratory failure, COPD, diastolic HF, DM, HTN, Afib, anxiety, HLD, ANA - BiPAP, and pulmonary HTN who presented to the emergency room with complaints of shortness of breath. - Patient Problems (1) COPD exacerbation Current Visit: Yes Status: Acute Code(s): J44.1 - CHRONIC OBSTRUCTIVE PULMONARY DISEASE W (ACUTE) EXACERBATION SNOMED Code(s): 269244588450380 Comment: - With chronic hypoxic respiratory failure - Continue solumedrol, albuterol nebs, spiriva, dulera, and singular He will stable for discharge home tomorrow will change steroids to PO prednisone follow up with Dr. Delgado as an outpatient does have hospice referral- not sure at this time he wants to have hospice services (2) Hyperkalemia Current Visit: Yes Status: Acute Code(s): E87.5 - HYPERKALEMIA SNOMED Code (s): 98910830 Comment: dose of kayexalate yesterday Potassium level 4.7 (3) Shortness of breath Current Visit: Yes Status: Acute Code(s): R06.02 - SHORTNESS OF BREATH SNOMED Code(s): 886517025 Comment: - Suspect secondary to CHF and COPD exacerbations - Continues to report increased SOB (4) Diastolic CHF Current Visit: Yes Status: Chronic Code(s): I50.30 - UNSPECIFIED DIASTOLIC ( CONGESTIVE) HEART FAILURE SNOMED Code(s): 178178108 Comment: - With exacerbation - Received 80 mg IV lasix in the ED - Echo 06/2017 - LVEF 65% - Resume home lasix - Strict I+O's and daily weights (5) Renal insufficiency Current Visit: Yes Status: Chronic Code(s): N28.9 - DISORDER OF KIDNEY AND URETER, UNSPECIFIED SNOMED Code(s): 173382453 Comment: - Suspect this may be close to his baseline - Will continue to follow - Outpatient renal artery US to eval for renal artery stenosis (6) HTN (hypertension) Current Visit: No Status: Chronic Code(s): I10 - ESSENTIAL (PRIMARY) HYPERTENSION SNOMED Code(s): 44799154 Comment: - BP is under fair control. - Continue home medication regimen. (7) Type II diabetes mellitus Current Visit: No Status: Chronic Comment: - Glucose 190-230's - HgA1C 7.4% in Jun 2017, not on home meds and diet controlled. - Continue Lispro SSI, and glucose checks Qachs (8) Leukocytosis Current Visit: Yes Status: Acute Code(s): D72.829 - ELEVATED WHITE BLOOD CELL COUNT, UNSPECIFIED SNOMED Code(s): 798136088 Comment: suspect this is related to steroid use Status and Disposition: OBV to Inpatient. Discharge to home when medically stable. palliative care consult today, patient will go home with visiting nurse services as he is not sure about hospice care at this time
[2017-10-12] MEDS: Atorvastatin* 40 MG TAB PO SCH (21:17)
[2017-10-13 07:18] VITALS: BP 137/56
[2017-10-13] MEDS: Tiotropium CAP.INH* CAP.INH/18 MCG (USE ORDER SET !) INH SCH (08:08)
[2017-10-13] MEDS: Furosemide TAB* 40 MG PO SCH (10:07)
[2017-10-13] MEDS: Aspirin EC Low Dose* 81 MG TAB.EC PO SCH (10:07)
[2017-10-13] MEDS: Apixaban* 5 MG TAB PO SCH (10:07)
[2017-10-13] MEDS: Metoprolol Succinate XL TAB* 25 MG PO SCH (10:07)
[2017-10-13] MEDS: methylPREDNISolone SOD 40 MG* 1 ML VIAL IV SCH (10:08)
[2017-10-13] MEDS: Insulin LISPRO* 1 UNITS UNIT SUBCUT SCH ×2 (10:08→12:08)
--- NOTE | 2017-10-13 11:36 | PN ---
Subjective Date of Service: 10/13/17 Interval History: Mr. Story denies complaint and is eager for discharge to home. Family History: Unchanged from Admission Social History: Unchanged from Admission Past Medical History: Unchanged from Admission Objective Active Medications: Albuterol (Ventolin Hfa Inhaler*) 2 puff INH Q4H PRN Albuterol/Ipratropium (Duoneb (Albuterol 2.5 Mg/Ipratropium 0.5 Mg)) 1 neb INH Q4H PRN Apixaban (Eliquis*) 5 mg PO BID [facility] Aspirin (Aspirin Ec Low Dose*) 81 mg PO DAILY [facility] Atorvastatin Calcium (Lipitor*) 40 mg PO 2100 [facility] Dextrose (D50w Syringe 50 Ml*) 12.5 gm IV PUSH .FOR FS < 60 - SS PRN Furosemide (Lasix Tab*) 40 mg PO 0800,1700 [facility] Insulin Human Lispro (Humalog*) 0 - 10 units SUBCUT AC [facility] Lorazepam (Ativan Inj*) 0.5 mg IV BEDTIME PRN Melatonin (Melatonin (Nf)) 3 mg PO BEDTIME PRN; Protocol Methylprednisolone Sodium Succinate (Solu-Medrol 40 Mg) 60 mg IV BID [facility] Metoprolol Succinate (Toprol Xl Tab*) 25 mg PO DAILY [facility] Tiotropium [place] (Spiriva Cap.Inh*) 1 cap INH DAILY [facility] Vital Signs - 8 hr 10/13/17 10/13/17 10/13/17 04:32 07:17 07:30 Temperature 98.5 F 98.2 F Pulse Rate 71 89 Respiratory 20 20 20 Rate Blood Pressure 123/44 137/56 (mmHg) O2 Sat by Pulse 96 95 Oximetry 10/13/17 08:10 Temperature Pulse Rate 90 Respiratory 18 Rate Blood Pressure (mmHg) O2 Sat by Pulse 95 Oximetry Oxygen Devices in Use Now: Nasal Cannula Appearance: Male sitting up in chair in NAD Eyes: No Scleral Icterus Ears/Nose/Mouth/Throat: Mucous Membranes Moist Neck: Trachea Midline Respiratory: Symmetrical Chest Expansion and Respiratory Effort, - - Diminished Cardiovascular: NL Sounds; No Murmurs; No JVD, - - + LE edema Abdominal: No Hepatosplenomegaly Lymphatic: No Cervical Adenopathy Skin: No Rash or Ulcers Neurological: Alert and Oriented x 3, NL Muscle Strength and Tone Nutrition: Taking PO's Result Diagrams: 10/11/17 04:53 10/11/17 04:53 Assess/Plan/Problems-Billing Assessment: Mr. Story is a 77 yo male with PMH significant for chronic hypoxic respiratory failure, COPD, diastolic HF, DM, HTN, Afib, anxiety, HLD, ANA - BiPAP, and pulmonary HTN who presented to the emergency room with complaints of shortness of breath. - Patient Problems (1) Diastolic CHF Comment: - With exacerbation in setting COPD and chronic hypoxic respiratory failure - Echo 06/2017 - LVEF 65% - Resume home lasix (2) COPD exacerbation Comment: - With chronic hypoxic respiratory failure. - Continue prednison, albuterol nebs, spiriva, dulera, and singular. (3) Hyperkalemia Comment: - Chronic problem. - Plan for follow up BMP on Tuesday. (4) Afib Comment: - Rate mostly controlled - Pt with ~ 5 sec pause overnight, likely secondary to cardizem - Appreciate cardiology consult, plan to decrease metoprolol at discharge - Continue oskarquricardo (5) HTN (hypertension) Comment: - BP reasonably controlled. - Continue home medication regimen. (6) Type II diabetes mellitus Comment: - Glucose 230-260s - HgA1C 7.4% in Jun 2017, not on home meds and diet controlled. - Patient to follow up with PCP regarding starting any medications given his severe end stage disease processes. (7) DVT prophylaxis Comment: - Manolo (8) Full code status Comment: Status and Disposition: Discharge. Patient will go home with visiting nurse services as he is not sure about hospice care at this time.
--- NOTE | 2017-10-14 01:54 | DS ---
CC: Dr. Anderson * DISCHARGE SUMMARY: DATE OF ADMISSION: 10/08/17 DATE OF DISCHARGE: 10/13/17 PRIMARY CARE PROVIDER: Dr. Anderson. ATTENDING PHYSICIAN: Dr. Roach * (dictation provided by Gisel Moraes NP). PRIMARY DIAGNOSES: 1. Acute on chronic hypoxemic respiratory failure. 2. Chronic obstructive pulmonary disease. 3. Acute on chronic diastolic congestive heart failure. SECONDARY DIAGNOSES: 1. Type 2 diabetes, diet controlled. 2. Chronic kidney disease. 3. Hypertension. 4. Atrial fibrillation, on Eliquis; history of aortic valve replacement, bioprosthetic valve in 2006, [facility] in [place]. 5. Anxiety. 6. Hyperlipidemia. 7. Obstructive sleep apnea, on BiPAP. 8. Pulmonary hypertension. MEDICATIONS AT THE TIME OF DISCHARGE: 1. Prednisone starting at 60 mg, tapered down to 10 mg dose q.3-day intervals. 2. Symbicort 80/4.5 two puffs b.i.d. 3. Albuterol inhaler 2 puffs inhaled q.4 hours p.r.n. 4. Albuterol via nebulizer 0.5 mg nebulized q.4 hours p.r.n. 5. Atorvastatin 40 mg p.o. daily. 6. Aspirin 81 mg p.o. daily. 7. Apixaban 5 mg p.o. b.i.d. 8. Metoprolol succinate 50 mg p.o. daily. 9. Furosemide 40 mg p.o. b.i.d. 10. Tiotropium 1 cap inhaled daily. HOSPITAL COURSE: Mr. Story is a 77-year-old male with past medical history of chronic hypoxemic respiratory failure secondary to COPD and diastolic congestive heart failure, who presented to the hospital on 10/08/17. Please see the dictated H and P from myself for complete details. In brief, the patient had just been admitted to our hospital from 09/17/17 through 09/21/17 for the same condition. He stated that he felt well initially, but then began to feel much more short of breath over the 2 days prior to admission. In the emergency room, he had a chest x-ray that was consistent with CHF and exam consistent with likely COPD exacerbation. Mr. Story was admitted to the hospital. He was treated with high-dose Solu- Medrol and Lasix for his CHF. He has had some improvement in his respiratory status and is now satting greater than 90% on 3 L nasal cannula. Mr. Story has severe end-stage COPD as well as a diastolic congestive heart failure resulting in multiple admissions to our hospital since his recent move to [place] over the past 6 months. He also reportedly had multiple admissions to the hospital in [place] where he resided previously. His overall poor prognosis was discussed at length with him and his by our palliative care provider Dr. Moseley. I refer you to that note for complete details. Initially, the patient was willing to be DNR/DNI and also wanted to go home with home hospice. However, he has stated that he would like a little more time to think about it before signing on with hospice or DNR. Hospice will be following up with the patient outpatient. He will also have VNS services. During this hospitalization, Mr. Story' BUN and creatinine were slightly up likely due to use of diuretics. On arrival, his creatinine was 1.20, it is now 1.60, but this is in keeping with the overall history at least over the past 3 to 4 months when we had seen here in the hospital. I think that he deserves repeat BMP on 10/17/17 to evaluate creatinine and also his potassium, which has been slightly elevated and is 5.1 today. He also had elevated blood sugar during this hospitalization and a hemoglobin A1c of 7.4 on 07/19/17. I discussed this with the patient and told him that I would like him to follow up with his primary care physician regarding the utility of adding on another medication in this chronically ill patient with end-stage COPD and CHF. Mr. Story is ready for discharge to home. DISPOSITION: To home. DIET: Low salt, consistent carbohydrate. ACTIVITY: As tolerated. FOLLOWUP PLANS: 1. Please follow up with Dr. Anderson, appointment has been made for 10/17/17 at which time basic metabolic panel should be drawn. 2. Please follow up with Pulmonology regarding a sleep study to qualify for CPAP or BiPAP for obstructive sleep apnea. TIME SPENT: Approximately 60 minutes were spent in the discharge of this patient, more than half that time was spent with the patient at the bedside reviewing the events leading up to this hospitalization, performing the physical exam and reviewing my plan of care. GISEL MORAES NP [id number]/[facility] #: [id number] ADARSH
== END 2017-10-13 14:00 | disposition hospice, home (50) | DRG 190 ==
LOC: ED 15:19 → MEDTELE 19:07 → OBSVTOIN 10-09 11:20
PROVIDERS: ADMIT Hospitalist; ATTEND Internal Medicine
DX: J44.1 Chronic obstructive pulmonary disease with (acute) exacerbation (principal); I50.33 Acute on chronic diastolic (congestive) heart failure; J96.21 Acute and chronic respiratory failure with hypoxia; I48.2 Chronic atrial fibrillation; I27.20 Pulmonary hypertension, unspecified; E11.22 Type 2 diabetes mellitus with diabetic chronic kidney disease; E87.5 Hyperkalemia; I48.92 Unspecified atrial flutter; I13.0 Hypertensive heart and chronic kidney disease with heart failure and stage 1 through stage 4 chronic kidney disease, or unspecified chronic kidney disease; F41.9 Anxiety disorder, unspecified; G47.33 Obstructive sleep apnea (adult) (pediatric); E78.5 Hyperlipidemia, unspecified; N18.3 Chronic kidney disease, stage 3 (moderate); Z66 Do not resuscitate; D72.829 Elevated white blood cell count, unspecified; N28.9 Disorder of kidney and ureter, unspecified; Z79.82 Long term (current) use of aspirin; Z79.01 Long term (current) use of anticoagulants; Z95.2 Presence of prosthetic heart valve; Z99.81 Dependence on supplemental oxygen; Z82.49 Family history of ischemic heart disease and other diseases of the circulatory system; Z87.891 Personal history of nicotine dependence; Z79.52 Long term (current) use of systemic steroids
CPT/HCPCS: 36415; 71045; 80048; 80053; 83605; 83880; 84132; 84484; 85025; 85379; 87040; 87205; 93005; 94640; 94660; 94760; 99284; A9270-GY; G0378; J1940; J2060; J2920; J2930

== ENCOUNTER 2017-10-26 03:03 | Inpatient (IN) | payer MEDICARE, OTHER ==
[2017-10-26] MEDS ORDERED: Albuterol/Ipratropium NEB.SOL* Albuterol 2.5 MG/Ipratropium 0.5 MG 3 ML INH ONE (04:06)
[2017-10-26] MEDS ORDERED: methylPREDNISolone 125 MG* 2 ML VIAL IV ONE (04:06)
[2017-10-26] MEDS ORDERED: Magnesium Sulfate 2 GM IV* 2 GM/50 ML BAG IVPB ONE (04:07)
[2017-10-26 04:19] LABS: ABS Basophils 0 10^3/ul (0-0.2); ABS Eosinophils 0 10^3/ul (0-0.6); ABS Lymphocytes 0.5 10^3/ul (1.0-4.8); ABS Monocytes 0.3 10^3/ul (0-0.8); ABS Neutrophils 11.4 10^3/ul (1.5-7.7); ABS Nucleated RBC 0 10^3/ul; Eosinophil % 0 % (0-6); Hematocrit 34 % (42-52); Hemoglobin 11.1 g/dl (14.0-18.0); Lymphocyte % 4.1 % (25-47); Mean Corpuscular HGB Conc 32 g/dl (31-36); Mean Corpuscular Hemoglobin 28 pg (27-31); Mean Corpuscular Volume 87 fL (80-94); Mean Platelet Volume 9 um3 (7.4-10.4); Nucleated Red Blood Cells % 0.1; Platelet Count 126 10^3/ul (150-450); Red Blood Count 3.94 10^6/ul (4.0-5.4); Red Cell Distribution Width 16 % (10.5-15); White Blood Count 12.3 10^3/ul (3.5-10.8)
[2017-10-26 04:29] LABS: INR 1.14 (0.77-1.02)
[2017-10-26] MEDS ORDERED: Albuterol 2.5 MG/3 ML NEB.SOL* (0.083%) ONE (04:52)
[2017-10-26] MEDS ORDERED: Albuterol 2.5 MG/3 ML NEB.SOL* (0.083%) INH SCH ×2 (05:00→05:02)
[2017-10-26] MEDS ORDERED: Furosemide IV* 10 MG/ML VIAL (40 MG) IV ONE (05:37)
[2017-10-26] MEDS ORDERED: Insulin REGULAR(*) 1 UNITS UNIT IV PUSH ONE (05:38)
--- OUTSIDE RECORDS SUMMARY | 2017-10-26 06:09 | XMS REPORT ---
:1940 External Reference #:[id number] Author Organization [facility] Address [address] [address] Phone [phone] Care Team Providers Name Role Phone Manish Tam MD Primary Care Physician Unavailable Payers Type Date Identification Numbers Payment Provider Subscriber Medicare Primary Policy Number: [id number] Medicare Jaya Rodrigues PayID: [id number] [address] [place] [address] Medigap Part B Policy Number: [id number] [employer] Jaya Rodrigues PayID: [id number] [address] [place] [address] Problems Date Description Provider Status Onset: 10/13/2017 Chronic obstructive lung disease Manish Tam M.D., FACP Active Onset: 10/13/2017 Type 2 diabetes mellitus Manish Tam M.D.,FACP Active Onset: 10/13/2017 Pulmonary hypertension Manish Tam M.D.,FACP Active Family History Date Family Member(s) Problem(s) Comments [...] Use Has consumed alcohol in the Quit 2013 past Smoking Patient is a former smoker [...] Form Strength Qnty SIG Indications Ordering Provider Ventolin HFA 10/18 Active Aerosol 108(90Bas 8.5un inhale 2 Cortney /2018 e) its puffs by cong Anderson/Act mouth four M.D. times a day as needed Prednisone 08/31 Active Tablets 10mg 30tab 60 mg daily J44.1 Radha s to taper by Sandy, 10 mg every MD 3 days Lasix 08/24 Active Tablets 20mg 60tab 2 by mouth Emil S. /2016 s twice daily Jose, DO FACC Eliquis 07/12 Active Tablets 5mg 180ta 1 by mouth I48.91 Emil S. /2016 bs twice a day Jose, DO FACC Atorvastatin 07/12 Active Tablets 40mg 90tab 1 by mouth Z95.2 Emil S. Calcium /2016 s every day Jose, DO FACC Aspirin Adult Active Tablets DR 81mg 1 by mouth Unknown Low Dose /0000 every day Metoprolol Active Tablets ER 50mg 90tab 1 by mouth Emil S. Succinate ER /0000 24HR s every day Jose, DO FACC Ferrous Sulfate Active Tablets 325mg 1 by mouth Unknown /0000 every day Symbicort Active Aerosol 80-4.5mcg 1unit 2 puff twice Cortney /0000 /Act s a day Elisha Anderson Albuterol Active Nebulizer (2.5mg/3M 75ml 1 vial via Radha Sulfate /0000 L) 0.083% nebulizer 3 Sandy, times daily MD as needed Oxygen Active Misc 3 L Unknown /0000 continuously Spiriva Active Capsules 18mcg inhale the Unknown Handihaler /0000 contents of 1 capsule by mouth daily Lisinopril 08/24 Hx Tablets 5mg 90tab 1 by mouth Emil S. /2016 s every day Jose, - DO FACC 09/28 Prednisone 08/24 Hx Tablets 10mg 45tab Take one Emil S. s tablet by Jose, - mouth daily DO FACC 08/31 Eliquis Hx Tablets 5mg 1 by mouth Unknown /0000 twice a day - 07/10 Oxycodone-Aceta Hx Tablets 5-325mg 1-2 tabs by Unknown minophen /0000 mouth every - 4-6 hours as 10/18 needed pain Simvastatin Hx Tablets 20mg 1 by mouth Z95.2 Unknown /0000 every day - 07/12 Inspra Hx Tablets 25mg 1 by mouth Unknown /0000 every day - 07/03 Calcitriol Hx Capsules 0.25mcg 1 by mouth Unknown /0000 every day - 09/16 Furosemide Hx Tablets 80mg bid Unknown /0000 - 07/10 Lisinopril Hx Tablets 10mg 1 by mouth Unknown /0000 every day - 08/24 Prednisone Hx TBPK 10mg (48) 40mg by mouth Unknown /0000 on 06/19/17, - tapering by 07/08 10mg every day until gone Lasix Hx Tablets 40mg 1 1/2 Unknown /0000 tablets - (60mg) by 08/24 mouth twice a /2016 day Spiriva Hx Capsules 18mcg 1 unit Unknown Handihaler /0000 inhalation - daily 07/10 Ergocalciferol Hx [id number] weekly Unknown /0000 - 09/16 Spirulina 00 Hx 1 tablet Unknown /0000 daily - 07/10 Eplerenone Hx Tablets 25mg 1 by mouth Unknown /0000 every day - 07/03 Immunizations CPT Code Status Date Vaccine Reaction Lot # [id number] Given 06/29/2017 Influenza Virus Vaccine, no immediate reaction, [id number] Quadrivalent, Split, pt tolerated well Preservative Free Vital Signs Date Vital Result Comment 10/21/2017 Height 72 inches 6'0" Weight 238.00 lb Heart Rate 60 /min BP Systolic Sitting 136 mmHg BP Diastolic Sitting 76 mmHg Respiratory Rate 14 /min O2 % BldC Oximetry 98 % BMI (Body Mass Index) 32.3 kg/m2 10/18/2017 Weight 241.00 lb Heart Rate 90 /min BP Systolic Sitting 140 mmHg BP Diastolic Sitting 80 mmHg O2 % BldC Oximetry 95 % 10/14/2017 Height 72 inches 6'0" Weight 245.00 lb Heart Rate 81 /min BP Systolic Sitting 130 mmHg BP Diastolic Sitting 66 mmHg Respiratory Rate 18 /min O2 % BldC Oximetry 92 % BMI (Body Mass Index) 33.2 kg/m2 09/28/2017 Height 72 inches 6'0" Weight 242.00 lb with shoes Heart Rate 80 /min BP Systolic Sitting 128 mmHg Lue large cuff BP Diastolic Sitting 56 mmHg Lue large cuff BP Systolic Standing 124 mmHg Lue BP Diastolic Standing 68 mmHg Lue Respiratory Rate 18 /min BMI (Body Mass Index) 32.8 kg/m2 Ejection Fraction 65% 06/23/17 09/28/2017 Height 72 inches 6'0" Weight 247.00 [...] Test Date Test Result H/L Range Note Basic Metabolic Panel 10/18/2017 Sodium 138 mmol/L 133-145 Potassium 3.8 mmol/L 3.5-5.0 Chloride 96 mmol/L Low 101-111 Co2 Carbon Dioxide 30 mmol/L 22-32 Anion Gap 12 mmol/L High 2-11 Glucose 284 mg/dL High 70-100 Blood Urea Nitrogen 52 mg/dL High 6-24 Creatinine 1.42 mg/dL High 0.67-1.17 BUN/Creatinine Ratio 36.6 High 8-20 Calcium 6.9 mg/dL Low 8.6-10.3 Egfr Non- 48.6 >60 Egfr 62.5 >60 1 Urine Microalbumin Random 10/18/2017 Ur Microalbumin (mg/L) 230.4 mg/L Urine Creatinine 22.07 mg/dL Urine Microalbumin/Creatinine 1043.9 ug/mg High <31 Laboratory test finding 10/14/2017 Hemoglobin A1c 7.5 High 5-7 Laboratory test finding 10/08/2017 Potassium Redraw 5.0 mmol/L 3.5-5.0 Ast Redraw 10 U/L Low 13-39 Laboratory test finding 10/08/2017 Troponin-I (TnI) 0.03 ng/mL <0.04 2 D Dimer Quantitative < 200 ng/mL Less Than 230 3 Blood Culture SEE RESULT BELOW 4 Laboratory test finding 10/08/2017 B-Type Natriuretic Peptide BNP 114 pg/mL High 5 Lactic Acid 0.6 mmol/L 0.5-2.0 6 Comp Metabolic Panel 10/08/2017 Sodium 140 mmol/L 133-145 Chloride 105 mmol/L 101-111 Co2 Carbon Dioxide 31 mmol/L 22-32 Glucose 109 mg/dL High 70-100 Blood Urea Nitrogen 55 mg/dL High 6-24 Creatinine 1.20 mg/dL High 0.67-1.17 BUN/Creatinine Ratio 45.8 High 8-20 Calcium 8.8 mg/dL 8.6-10.3 Total Protein 6.1 g/dL Low 6.4-8.9 Albumin 3.4 g/dL 3.2-5.2 Globulin 2.7 g/dL 2-4 Albumin/Globulin Ratio 1.3 1-3 Total Bilirubin 0.80 mg/dL 0.2-1.0 Alkaline Phosphatase 86 U/L 34-104 Alt 10 U/L 7-52 Egfr Non- 59.0 >60 Egfr 75.9 >60 7 Potassium TNP mmol/L 3.5-5.0 8 Anion Gap 4 mmol/L 2-11 Ast TNP U/L 13-39 9 CBC Auto Diff 10/08/2017 White Blood Count 9.3 10^3/uL 3.5-10.8 Red Blood Count 3.86 10^6/uL Low 4.0-5.4 Hemoglobin 11.1 g/dL Low 14.0-18.0 Hematocrit 34 % Low 42-52 Mean Corpuscular Volume 87 fL 80-94 Mean Corpuscular Hemoglobin 29 pg 27-31 Mean Corpuscular HGB Conc 33 g/dL 31-36 Red Cell Distribution Width 15 % 10.5-15 Platelet Count 131 10^3/uL Low 150-450 Mean Platelet Volume 9 um3 7.4-10.4 Abs Neutrophils 7.0 10^3/uL 1.5-7.7 Abs Lymphocytes 1.3 10^3/uL 1.0-4.8 Abs Monocytes 0.6 10^3/uL 0-0.8 Abs Eosinophils 0.2 10^3/uL 0-0.6 Abs Basophils 0.1 10^3/uL 0-0.2 Abs Nucleated RBC 0 10^3/uL Granulocyte % 75.0 % 38-83 Lymphocyte % 14.0 % Low 25-47 Monocyte % 6.9 % 1-9 Eosinophil % 2.7 % 0-6 Basophil % 1.4 % 0-2 Nucleated Red Blood Cells % 0 Lipid Profile (Trig/Chol/HDL) 09/29/2017 Triglycerides 107 mg/dL 10 Cholesterol 141 mg/dL 11 HDL Cholesterol 57.2 mg/dL 12 LDL Cholesterol 62 mg/dL 13 CBC Auto Diff 09/29/2017 White Blood Count 14.0 10^3/uL High 3.5-10.8 Red Blood Count 4.31 10^6/uL 4.0-5.4 Hemoglobin 11.7 g/dL Low 14.0-18.0 Hematocrit 37 % Low 42-52 Mean Corpuscular Volume 86 fL 80-94 Mean Corpuscular Hemoglobin 27 pg 27-31 Mean Corpuscular HGB Conc 32 g/dL 31-36 Red Cell Distribution Width 16 % High 10.5-15 Platelet Count 148 10^3/uL Low 150-450 Mean Platelet Volume 10 um3 7.4-10.4 Abs Neutrophils 13.1 10^3/uL High 1.5-7.7 Abs Lymphocytes 0.7 10^3/uL Low 1.0-4.8 Abs Monocytes 0.2 10^3/uL 0-0.8 Abs Eosinophils 0 10^3/uL 0-0.6 Abs Basophils 0 10^3/uL 0-0.2 Abs Nucleated RBC 0 10^3/uL Granulocyte % 93.4 % High 38-83 Lymphocyte % 4.8 % Low 25-47 Monocyte % 1.4 % 1-9 Eosinophil % 0.1 % 0-6 Basophil % 0.3 % 0-2 Nucleated Red Blood Cells % 0 Comp Metabolic Panel 09/29/2017 Sodium 139 mmol/L 133-145 Potassium 4.8 mmol/L 3.5-5.0 Chloride 99 mmol/L Low 101-111 Co2 Carbon Dioxide 32 mmol/L 22-32 Anion Gap 8 mmol/L 2-11 Glucose 198 mg/dL High 70-100 Blood Urea Nitrogen 77 mg/dL High 6-24 Creatinine 1.28 mg/dL High 0.67-1.17 BUN/Creatinine Ratio 60.2 High 8-20 Calcium 8.3 mg/dL Low 8.6-10.3 Total Protein 6.2 g/dL Low 6.4-8.9 Albumin 3.9 g/dL 3.2-5.2 Globulin 2.3 g/dL 2-4 Albumin/Globulin Ratio 1.7 1-3 Total Bilirubin 0.80 mg/dL 0.2-1.0 Alkaline Phosphatase 82 U/L 34-104 Alt 15 U/L 7-52 Ast 13 U/L 13-39 Egfr Non- 54.8 >60 Egfr 70.5 >60 14 Laboratory test finding 09/17/2017 Lactic Acid 0.9 mmol/L 0.5-2.0 15 CBC Auto Diff 09/17/2017 White Blood Count [...] 0 Inr/Protime 09/17/2017 Inr 1.17 High 0.77-1.02 16 Laboratory test finding 09/17/2017 B-Type Natriuretic 267 pg/mL High 17 Peptide BNP Troponin-I (TnI) 0.01 ng/mL <0.04 [...] Egfr Non- 54.3 >60 Egfr 69.8 >60 18 Potassium 6.4 mmol/L High 3.5-5.0 19 Anion Gap 3 mmol/L 2-11 CBC Auto Diff 07/17/2017 White Blood Count [...] Quantitative 241 ng/mL High Less Than 230 20 Lactic Acid 1.4 mmol/L 0.5-2.0 21 Comp Metabolic Panel 07/17/2017 Sodium 138 mmol/L [...] Egfr Non- 26.0 >60 Egfr 33.5 >60 22 Potassium 5.2 mmol/L High 3.5-5.0 Anion Gap 9 mmol/L 2-11 Laboratory test finding 07/17/2017 Magnesium 2.1 mg/dL 1.9-2.7 Lipase 28 U/L 11.0-82.0 Creatine Kinase(CK) 31 U/L 10-223 C Reactive Protein 23.94 mg/L High < 5.00 23 Troponin-I (TnI) 0.01 ng/mL <0.04 CKMB 07/17/2017 CKMB ng/mL 1.0 ng/mL 0.6-6.3 Laboratory test finding 07/17/2017 TSH (Thyroid Stim Horm) 3.13 mcIU/mL 0.34-5.60 Procalcitonin 0.6 ng/mL High <0.6 24 Blood Culture SEE RESULT BELOW 25 Laboratory test finding 07/17/2017 B-Type Natriuretic Peptide BNP 178 pg/mL High 26 1 Because ethnic data is not always readily [...] 15-29 5 Kidney failure <15 (or dialysis) 2 Specimen hemolyzed. Unable to perform test requested. Reorder for specimen recollection. MARLON/ED was called for recollect at 1656 on 10/08/17 by [id number] Please note: The following may produce a false positive D Dimer test: - Rheumatoid factor greater than 60 IU/ml - Plasma hemoglobin greater than 0.05 gm/dl - Bilirubin greater than 50 mg/dl - Lipids greater than 1000 mg/dl - FDP greater than 20 ug/ml 4 SEE RESULT BELOW Name: JAYA RODRIGUES : [address]: Rosalie Roach DO Acct: [id number] Unit: [id number] AGE: 77 Location: [place] [address] Re10/09/17 Dis: 10/13/17 SEX: M Status: DIS IN SPEC: [id number] NIGEL: 10/08/17-1608 [facility] DR: Get Agrawal MD REQ: [id number] RECD: 10/08/17-1611 STATUS: ALVARO CUELLO DR: Santiago Harris DEVELOPMENT VICE PRESIDENT _ SOURCE: BLOOD,VENO SPDESC: ORDERED: Blood Cult COMMENTS: Verbal to [id number] by [id number] at 0554 on 10/13/17. Results read back accurately. Procedure Result Reported Site Aerobic Culture Bottle Final 10/15/17- 0831 ML Aerobic Bottle Gram Stain Gram Positive Bacilli Organism 1 GRAM POSITIVE BACILLI SENT TO REFERENCE LABORATORY FOR IDENTIFICATION Anaerobic Culture Bottle Final 10/13/17- 1614 ML No Growth Day 5 * ML - MAIN LAB ([facility]) . END OF REPORT * ML=Testing performed at Main Lab DEPARTMENT OF PATHOLOGY, [address] [place] [address] Carl Reece M.D. Director [facility] # [id number] 5 >100 to <200 pg/mL: likely compensated congestive heart failure (CHF) 200 to 400 pg/mL: likely moderate CHF >400 pg/mL: likely moderate to severe CHF 6 [facility] Severe Sepsis and Septic Shock Management Bundle Measure requires all lactic acids initially measuring >2.0 mmol/L be repeated. 7 Because ethnic data is not always readily [...] 15-29 5 Kidney failure <15 (or dialysis) 8 Specimen Hemolyzed. Result may not be valid. Unable to report test result due to hemolysis. 9 Unable to report test result due to hemolysis. 10 Desirable: <150 Borderline High: 150-199 High: 200-499 Very High: >500 11 Desirable: <200 Borderline High: 200-239 High: >239 12 Low: <40 Desirable: 40-60 High: >60 13 Desirable: <100 Near Optimal: 100-129 Borderline High: 130-159 High: 160-189 Very High: >189 14 Because ethnic data is not always readily [...] 15-29 5 Kidney failure <15 (or dialysis) 15 [place] Severe Sepsis and Septic Shock Management Bundle Measure requires all lactic acids initially measuring >2.0 mmol/L be repeated. 16 Please note the change in INR reference range effective 17. 17 >100 to <200 pg/mL: likely compensated congestive heart failure (CHF) 200 to 400 pg/mL: likely moderate CHF >400 pg/mL: likely moderate to severe CHF 18 Because ethnic data is not always readily [...] 15-29 5 Kidney failure <15 (or dialysis) 19 Critical Result K:6.4 Called to [id number] at: 14:00:49 by:[email or web address] Read back by:[id number] Please note: The following may produce a false positive D Dimer test: - Rheumatoid factor greater than 60 IU/ml - Plasma hemoglobin greater than 0.05 gm/dl - Bilirubin greater than 50 mg/dl - Lipids greater than 1000 mg/dl - FDP greater than 20 ug/ml 21 [facility] Severe Sepsis and Septic Shock Management Bundle Measure requires all lactic acids initially measuring >2.0 mmol/L be repeated. 22 Because ethnic data is not always readily [...] 15-29 5 Kidney failure <15 (or dialysis) 23 Acute inflammation: >10.00 24 Interpretive information available on [employer] Post Test Catalog at [email or web address] 25 SEE RESULT BELOW Name: JAYA RODRIGUES : [address]: Daisha Robb DO Acct: [id number] Unit: [id number] AGE: 77 Location: [place] [address] Re07/18/17 SEX: M Status: ADM IN SPEC: [id number] NIGEL: 07/17/17 [facility] [address]: Crow Huerta MD REQ: [id number] RECD: 07/17/17 STATUS: RES OTHR : Santiago Harris DEVELOPMENT VICE PRESIDENT _ SOURCE: BLOOD,VENO SPDESC: ORDERED: Blood Cult COMMENTS: Patient is On Antibiotics? NO Procedure Result Reported Site Aerobic Culture Bottle Preliminary 07/18/17- 1642 ML No Growth Day 1 Anaerobic Culture Bottle Preliminary 07/18/17- 1642 ML No Growth Day 1 * ML - MAIN LAB ([facility]) . END OF REPORT * ML=Testing performed at Main Lab DEPARTMENT OF PATHOLOGY, [address] [place] [address] Carl Reece M.D. Director [facility] # [id number] 26 >100 to <200 pg/mL: likely compensated congestive heart failure (CHF) 200 to 400 pg/mL: likely moderate CHF >400 pg/mL: likely moderate to severe CHF Procedures Date CPT Code Description Status 09/28/2017 22190 EKG Tracing & Interpretation Completed 07/15/2017 03175 Polysomnography Sleep Staging 4+ Parameters W/Cpap Completed 07/12/2017 95064 EKG Tracing & Interpretation Completed 06/23/2017 84026 ECHO Transthorasic Realtime 2D W Doppler & Color Completed Flow Hosp Encounters Type Date Location Provider CPT E/M Dx Office Visit 10/18/2017 8:30a [facility] Internal Medicine Cortney Anderosn M.D. 52827 E87.5 - Ronnie J44.9 N18.9 I50.32 E11.9 G47.33 Office Visit 10/14/2017 2:20p [facility] Internal Medicine - Santiago Harris, [facility] [address] E11.59 I50.33 N18.9 E11.22 Office Visit 10/13/2017 1:25p [facility], Gisel Moraes, N.P. [address]12 R06.02 Hospitalists I50.33 J44.1 I10 Office Visit 10/12/2017 1:24p [facility], [address] R06.02 Assoc,pc Hospitalists DEVELOPMENT VICE PRESIDENT I50.33 J44.1 I10 Office Visit 10/11/2017 1:24p [facility], [address] R06.02 Assoc, Hospitalists DEVELOPMENT VICE PRESIDENT I50.33 J44.1 I10 Office Visit 10/11/2017 3:55p [facility] Lul Romero, [address] I48.2 [facility] M.Elias Office Visit 10/10/2017 1:23p [facility], Terri [address]991 R06.02 Hospitalists ROSA Tolbert I50.33 J44.1 I10 Office Visit 10/10/2017 3:56p [facility] [address] I48.2 [facility] Elisha J44.1 Office Visit 10/09/2017 [facility] Didi, [address] R06.02 1:22p Assoc, DEVELOPMENT VICE PRESIDENT Hospitalists I50.33 J44.1 I10 Office Visit 10/08/2017 1:18p [facility], Gisel Moraes, N.P. [address] R06.02 Hospitalists I50.33 J44.1 I10 Office Visit 09/28/2017 4:00p [facility] [place] [address] I10 FACC I65.29 I70.1 N18.9 I50.9 Z95.2 E78.5 G47.33 Office Visit 09/28/2017 8:20a [facility] Internal Medicine Santiago Harris [facility] [address] [address]50[address] I10 E78.5 J44.1 E11.59 G47.33 Office Visit 09/21/2017 9:23a [facility], [place] [address] J44.1 Hospitalists E87.5 I50.33 E11.59 Office Visit 09/20/2017 9:22a [facility], [place] [address] J44.1 Hospitalists E87.5 I50.33 E11.59 Office Visit 09/19/2017 9:22a [facility], [place] [address] I50.33 Hospitalists E87.5 E11.59 J44.1 Office Visit 09/18/2017 [facility] [place] [address] I50.33 Hospitalists E87.5 J44.1 E11.59 Office Visit 08/31/2017 9:00a [facility] [place] [address] J44.1 [facility] G47.33 R09.02 Office Visit 08/24/2017 2:40p [facility] [place] [facility] [address] I65.23 [facility] FACC J44.9 I10 N18.9 I48.91 Z95.2 Office Visit 07/17/2017 7:06a [facility], Daisha Robb, [address] J44.9 Hospitalists Elisha J18.1 I10 N17.9 Office Visit 07/12/2017 10:40a [facility] [place] [facility] [place] [address] Z95.2 [facility] FACC I65.23 I48.91 N18.9 E78.5 I12.9 I50.9 Office Visit 07/11/2017 11:45a [facility] [place] [address] J44.9 [facility] R06.02 G47.33 R09.02 Office Visit 06/29/2017 3:00p [facility] Internal Medicine - Santiago Harris, [facility] [address] Z95.2 J44.1 E78.5 I10 F41.9 Z23 J44.9 Office Visit 06/24/2017 11:[facility] [address] J44.1 Hospitalists I50.9 E78.5 I10 Office Visit 06/23/2017 11:09a [facility] [address] J44.1 Hospitalists I50.9 E78.5 I10 Office Visit 06/22/2017 11:08a [facility],pc Laci Abel, [address] J44.1 Hospitalists N.P. I50.9 E78.5 I10 Plan of Care Future Appointment(s):12/16/2017 10:30 am - Radha Delgado MD at [facility]10/25/2017 10:30 am - PATTI Monique at [facility]11/04/2017 11:20 am - Emil Garcia DO FACC at [facility]10/27/2017 2:00 pm - Ica Nuclear Schedule at [facility]10/21/2017 - Radha Delgado MDJ44.9 Chronic obstructive pulmonary disease, unspecifiedFollow up:2 axoxxnH61.33 Obstructive sleep apnea ( adult) (pediatric)J96.10 Chronic respiratory failure, unsp w hypoxia or hypercapnia
--- OUTSIDE RECORDS SUMMARY | 2017-10-26 06:10 | XMS REPORT ---
:1940 External Reference #:[id number] [facility] Address [address] [address] Phone [phone] Care Team Providers Name Role Phone Manish Tam MD Primary Care Physician Unavailable Payers Type Date Identification Numbers Payment Provider Subscriber Medicare Primary Policy Number: [id number] Medicare Jaya Story PayID: [id number] [address] [place] [address] Medigap Part B Policy Number: [id number] [employer] Jaya Story PayID: [id number] [address] [place] [address] Problems Date Description Provider Status Onset: 10/13/2017 [...] /0000 inhalation - daily 07/10 Ergocalciferol Hx [id number] weekly Unknown /0000 - 09/16 Spirulina 00 Hx 1 tablet Unknown /0000 daily - 07/10 Eplerenone Hx Tablets 25mg 1 by mouth Unknown /0000 every day - 07/03 Immunizations CPT Code Status Date Vaccine Reaction Lot # [id number] Given 06/29/2017 Influenza Virus Vaccine, no immediate reaction, [id number] Quadrivalent, Split, pt tolerated well Preservative Free Vital Signs Date Vital Result Comment 10/18/2017 Weight 241.00 lb Heart Rate 90 [...] Test Result H/L Range Note Laboratory test finding 10/14/2017 Hemoglobin A1c 7.5 High 5-7 Laboratory test finding 10/08/2017 Potassium Redraw 5.0 mmol/L 3.5-5.0 Ast Redraw 10 U/L Low 13-39 Laboratory test finding 10/08/2017 B-Type Natriuretic Peptide BNP 114 pg/mL High 1 Lactic Acid 0.6 mmol/L 0.5-2.0 2 CBC Auto Diff 10/08/2017 White Blood Count [...] Blood Cells % 0 Comp Metabolic Panel 10/08/2017 Sodium 140 mmol/L [...] Egfr Non- 59.0 >60 Egfr 75.9 >60 3 Potassium TNP mmol/L 3.5-5.0 4 Anion Gap 4 mmol/L 2-11 Ast TNP U/L 13-39 5 Laboratory test finding 10/08/2017 Troponin-I (TnI) 0.03 ng/mL <0.04 6 D Dimer Quantitative < 200 ng/mL Less Than 230 7 Blood Culture SEE RESULT BELOW 8 CBC Auto Diff 09/29/2017 White Blood Count [...] Egfr Non- 54.8 >60 Egfr 70.5 >60 9 Lipid Profile (Trig/Chol/HDL) 09/29/2017 Triglycerides 107 mg/dL 10 Cholesterol 141 mg/dL 11 HDL Cholesterol 57.2 mg/dL 12 LDL Cholesterol 62 mg/dL 13 CBC Auto Diff 09/17/2017 White Blood Count [...] 0 Inr/Protime 09/17/2017 Inr 1.17 High 0.77-1.02 14 Laboratory test finding 09/17/2017 B-Type Natriuretic 267 pg/mL High 15 Peptide BNP Troponin-I (TnI) 0.01 ng/mL <0.04 [...] Egfr Non- 54.3 >60 Egfr 69.8 >60 16 Potassium 6.4 mmol/L High 3.5-5.0 17 Anion Gap 3 mmol/L 2-11 Laboratory test finding 09/17/2017 Lactic Acid 0.9 mmol/L 0.5-2.0 18 Comp Metabolic Panel 07/17/2017 Sodium 138 mmol/L [...] Egfr Non- 26.0 >60 Egfr 33.5 >60 19 Potassium 5.2 mmol/L High 3.5-5.0 Anion Gap 9 mmol/L 2-11 Laboratory test finding 07/17/2017 Magnesium 2.1 mg/dL 1.9-2.7 Lipase 28 U/L 11.0-82.0 Creatine Kinase(CK) 31 U/L 10-223 C Reactive Protein 23.94 mg/L High < 5.00 20 Troponin-I (TnI) 0.01 ng/mL <0.04 CKMB 07/17/2017 CKMB ng/mL 1.0 ng/mL 0.6-6.3 Laboratory test finding 07/17/2017 TSH (Thyroid Stim Horm) 3.13 mcIU/mL 0.34-5.60 Procalcitonin 0.6 ng/mL High <0.6 21 Blood Culture SEE RESULT BELOW 22 Laboratory test finding 07/17/2017 Partial Thrombo Time 35.0 seconds 26.0 -36.3 PTT D Dimer Quantitative 241 ng/mL High Less Than 230 23 Lactic Acid 1.4 mmol/L 0.5-2.0 24 Inr/Protime 07/17/2017 Inr 1.24 High 0.89-1.11 CBC [...] B-Type Natriuretic Peptide BNP 178 pg/mL High 25 1 >100 to <200 pg/mL: likely compensated congestive heart failure (CHF) 200 to 400 pg/mL: likely moderate CHF >400 pg/mL: likely moderate to severe CHF 2 [facility] Severe Sepsis and Septic Shock Management Bundle Measure requires all lactic acids initially measuring >2.0 mmol/L be repeated. 3 Because ethnic data is not always [...] 5 Kidney failure <15 (or dialysis) 4 Specimen Hemolyzed. Result may not be valid. Unable to report test result due to hemolysis. 5 Unable to report test result due to hemolysis. 6 Specimen hemolyzed. Unable to perform test requested. Reorder for specimen recollection. [facility]/ was called for recollect at 1656 on 10/08/17 by [id number] Please note: The following may produce a false positive D Dimer test: - Rheumatoid factor greater than 60 IU/ml - Plasma hemoglobin greater than 0.05 gm/dl - Bilirubin greater than 50 mg/dl - Lipids greater than 1000 mg/dl - FDP greater than 20 ug/ml 8 SEE RESULT BELOW Name: RAVIJAYA : [address]: Rosalie Roach DO Acct: [id number] Unit: [id number] AGE: 77 Location: [place] [address] Re10/09/17 Dis: 10/13/17 SEX: M Status: DIS IN SPEC: [id number] NIGEL: 10/08/17-[address]: Get Agrawal MD REQ: [id number] RECD: 10/08/17 STATUS: ALVARO CUELLO DR: Santiago Harris ORDER SELECTOR _ SOURCE: BLOOD,VENO SPDESC: ORDERED: Blood Cult COMMENTS: Verbal to [id number] by [id number] at 0554 on 10/13/17. Results read back accurately. Procedure Result Reported Site Aerobic Culture Bottle Final 10/15/17- 0831 ML Aerobic Bottle Gram Stain Gram Positive Bacilli Organism 1 GRAM POSITIVE BACILLI SENT TO REFERENCE LABORATORY FOR IDENTIFICATION Anaerobic Culture Bottle Final 10/13/17- 1614 ML No Growth Day 5 * ML - MAIN LAB ([facility]) . END OF REPORT * ML=Testing performed at Main Lab DEPARTMENT OF PATHOLOGY, [address] [place] [address] Carl Reece M.D. Director [facility] # [id number] 9 Because ethnic data is not always readily [...] 15-29 5 Kidney failure <15 (or dialysis) 10 Desirable: <150 Borderline High: 150-199 High: 200-499 Very High: >500 11 Desirable: <200 Borderline High: 200-239 High: >239 12 Low: <40 Desirable: 40-60 High: >60 13 Desirable: <100 Near Optimal: 100-129 Borderline High: 130-159 High: 160-189 Very High: >189 14 Please note the change in INR reference range effective 17. 15 >100 to <200 pg/mL: likely compensated congestive heart failure (CHF) 200 to 400 pg/mL: likely moderate CHF >400 pg/mL: likely moderate to severe CHF 16 Because ethnic data is not always readily [...] 15-29 5 Kidney failure <15 (or dialysis) 17 Critical Result K:6.4 Called to [id number] at: 14:00:49 by:[id number] Read back by:[id number] 18 [facility] Severe Sepsis and Septic Shock Management Bundle Measure requires all lactic acids initially measuring >2.0 mmol/L be repeated. 19 Because ethnic data is not always readily [...] 15-29 5 Kidney failure <15 (or dialysis) 20 Acute inflammation: >10.00 21 Interpretive information available on [employer] Test Catalog at [email or web address] 22 SEE RESULT BELOW Name: JAYA STORY : [address]: Daisha Robb DO Acct: [id number] Unit: [id number] AGE: 77 Location: [place] [address] Re07/18/17 SEX: M Status: ADM IN SPEC: [id number] NIGEL: 07/17/17 [facility] DR: Crow Huerta MD REQ: [id number] RECD: 07/17/17 STATUS: RES OT DR: Santiago Harris ORDER SELECTOR _ SOURCE: BLOOD,VENO SPDESC: ORDERED: Blood Cult COMMENTS: Patient is On Antibiotics? NO Procedure Result Reported Site Aerobic Culture Bottle Preliminary 07/18/17- 1642 ML No Growth Day 1 Anaerobic Culture Bottle Preliminary 07/18/17- 1642 ML No Growth Day 1 * ML - MAIN LAB ([facility]) . END OF REPORT * ML=Testing performed at Main Lab DEPARTMENT OF PATHOLOGY, [address] [place] [address] Carl Reece M.D. Director [facility] # [id number] Please note: The following may produce a false positive D Dimer test: - Rheumatoid factor greater than 60 IU/ml - Plasma hemoglobin greater than 0.05 gm/dl - Bilirubin greater than 50 mg/dl - Lipids greater than 1000 mg/dl - FDP greater than 20 ug/ml 24 [facility] Severe Sepsis and Septic Shock Management Bundle Measure requires all lactic acids initially measuring >2.0 mmol/L be repeated. 25 >100 to <200 pg/mL: likely compensated congestive heart failure (CHF) 200 to 400 pg/mL: likely moderate CHF >400 pg/mL: likely moderate to severe CHF Procedures Date CPT Code Description Status 09/28/2017 28930 EKG Tracing & Interpretation Completed 07/15/2017 71179 Polysomnography Sleep Staging 4+ Parameters W/Cpap Completed 07/12/2017 46989 EKG Tracing & Interpretation Completed 06/23/2017 01428 ECHO Transthorasic Realtime 2D W Doppler & Color Completed Flow Hosp Encounters Type Date Location Provider CPT E/M Dx Office Visit 09/28/2017 8:20a [facility] Internal Medicine Santiago Harris, TRUCK BRACER [address] [address] I10 E78.5 J44.1 E11.59 G47.33 Office Visit 09/28/2017 4:00p [facility] [place] [address] I10 FACC I65.29 I70.1 N18.9 I50.9 Z95.2 E78.5 G47.33 Office Visit 09/21/2017 9:23a [facility], [place] [address] J44.1 Hospitalists E87.5 I50.33 E11.59 Office Visit 09/20/2017 9:22a [facility], [place] [address] J44.1 Hospitalists E87.5 I50.33 E11.59 Office Visit 09/19/2017 9:22a [facility], [place] [address] I50.33 Hospitalists E87.5 E11.59 J44.1 Office Visit 09/18/2017 9:20a [facility], [place] [address] I50.33 Hospitalists E87.5 J44.1 E11.59 Office Visit 08/31/2017 9:00a [facility] [place] [address] J44.1 Services [facility] G47.33 R09.02 Office Visit 08/24/2017 2:40p [facility] [place] [address] I65.23 [facility] FACC J44.9 I10 N18.9 I48.91 Z95.2 Office Visit 07/17/2017 7:06a [facility], Daisha Robb, [address] J44.9 Hospitalists Elisha J18.1 I10 N17.9 Office Visit 07/12/2017 10:40a [facility] [place] [address] Z95.2 [facility] FACC I65.23 I48.91 N18.9 E78.5 I12.9 I50.9 Office Visit 07/11/2017 11:45a [facility] [place] [address] J44.9 [facility] R06.02 G47.33 R09.02 Office Visit 06/29/2017 3:00p [facility] Internal Medicine - PATTI Monique [address] Z95.2 J44.1 E78.5 I10 F41.9 Z23 J44.9 Office Visit 06/24/2017 11:09a [facility],[place] [address] J44.1 Hospitalists I50.9 E78.5 I10 Office Visit 06/23/2017 11:09a [facility], [place] [address] J44.1 Hospitalists I50.9 E78.5 I10 Office Visit 06/22/2017 11:08a [facility], Laci Abel [address] J44.1 Hospitalists N.P. I50.9 E78.5 I10 Plan of Care Future Appointment(s):10/25/2017 10:30 am - PATTI Monique at [facility]11/04/2017 11:20 am - Emil Garcia DO FACC at [facility]10/27/2017 2:00 pm - Ica Nuclear Schedule at [facility]10/18/2017 - Cortney Anderson M.D.E87.5 HyperkalemiaNew Labs: Basic Metabolic PanelComments:you are suppose to do your lab work today to decide what medications would be safer to use for the xupmartkD13.9 Chronic obstructive pulmonary disease, unspecifiedFollow up:1 week with Santiago MeléndezkN18.9 Chronic kidney disease, priftfbingzO43.32 Chronic diastolic ( congestive) heart failureComments:ounxsqZ23.9 Type 2 diabetes mellitus without complicationsNew Labs:Urine Microalbumin RandomComments:continue to follow low fat , low carb dietGoals:Goal Hemoglobin A1c is less than 7.0%.G47.33 Obstructive sleep apnea (adult) (pediatric)Comments:please follow up with the sleep clinic as we discussed to treat the sleep apnea
--- NOTE | 2017-10-26 06:59 | ED ---
Charly Colbert Gabriel, scribdakota for Shanti Lozano MD on 10/26/17 at 0405 . Shortness of Breath - HPI Summary HPI Summary: This patient is a 77 year old M presenting to [facility] accompanied by his with a chief complaint of SOB 10-23-17. Patient reports sore throat. Patient denies fever. Pt was recently admitted and released last week but after 3 days he began to become SOB. Hx of COPD, CHF, and use O2 at home - History of Current Complaint Chief Complaint: EDShortnessOfBreath Time Seen by Provider: 10/26/17 03:32 Hx Obtained From: Patient Onset/Duration: Lasting Days, Still Present Timing: Constant Current Severity: Severe Dyspnea At: Rest Associated Signs & Symptoms: Negative - fever - Allergy/Home Medications Allergies/Adverse Reactions: Allergies Allergy/AdvReac Type Severity Reaction Status Date / Time No Known Allergies Allergy Verified 10/26/17 03:13 PMH/Surg Hx/FS Hx/Imm Hx Endocrine/Hematology History: Reports: Hx Diabetes Cardiovascular History: Reports: Hx Congestive Heart Failure, Hx Hypertension, Other Cardiovascular Problems/Disorders - valve repair, AFIB, Hyperlipidemia Respiratory History: Reports: Hx Asthma, Hx Chronic Obstructive Pulmonary Disease (COPD) Sensory History: Reports: Hx Hearing Problem - Hard of hearing Denies: Hx Contacts or Glasses, Hx Hearing Aid Opthamlomology History: Denies: Hx Contacts or Glasses - Surgical History Surgery Procedure, Year, and Place: Valve repair December 2016 [place], [place], Tonsillectomy - Immunization History Date of Influenza Vaccine: 07/05 Infectious Disease History: No Infectious Disease History: Denies: Traveled Outside the [place] in Last 30 Days - Family History Known Family History: Positive: Diabetes Negative: Hypertension - Social History Alcohol Use: Rare Substance Use Type: Reports: None Smoking Status (MU): Former Smoker Review of Systems Negative: Fever Positive: Sore Throat Positive: Shortness Of Breath All Other Systems Reviewed And Are Negative: Yes Physical Exam - Summary Physical Exam Summary: VITAL SIGNS: Reviewed. GENERAL: Patient is a well-developed and nourished male who is lying comfortable in the stretcher. Patient is not in any acute respiratory distress. HEAD AND FACE: No signs of trauma. No ecchymosis, hematomas or skull depressions. No sinus tenderness. EYES: PERRLA, EOMI x 2, No injected conjunctiva, no nystagmus. EARS: Hearing grossly intact. Ear canals and tympanic membranes are within normal limits. MOUTH: Oropharynx within normal limits. NECK: Supple, trachea is midline, no adenopathy, no JVD, no carotid bruit, no c- spine tenderness, neck with full ROM. CHEST: Symmetric, no tenderness at palpation LUNGS: expiratory wheezes CVS: Regular rate and rhythm, S1 and S2 present, no murmurs or gallops appreciated. ABDOMEN: Soft, non-tender. No signs of distention. No rebound no guarding, and no masses palpated. Bowel sounds are normal. EXTREMITIES: FROM in all major joints, no edema, no cyanosis or clubbing. NEURO: Alert and oriented x 3. No acute neurological deficits. Speech is normal and follows commands. SKIN: Dry and warm Triage Information Reviewed: Yes Vital Signs On Initial Exam: Initial Vitals Temp Pulse Resp BP Pulse Ox 97.7 F 87 20 160/66 95 10/26/17 03:05 10/26/17 03:05 10/26/17 03:05 10/26/17 03:05 10/26/17 03:05 Vital Signs Reviewed: Yes Diagnostics - Vital Signs Vital Signs Temp Pulse Resp BP Pulse Ox 10/26/17 03:30 86 22 139/60 95 10/26/17 03:25 96 93 10/26/17 03:24 150/63 10/26/17 03:05 97.7 F 87 20 160/66 95 - Laboratory Lab Results: Lab Results 10/26/17 10/26/17 10/26/17 Range/Units 03:30 03:30 03:30 WBC 12.3 H (3.5-10.8) 10^3/ul RBC 3.94 L (4.0-5.4) 10^6/ul Hgb 11.1 L (14.0-18.0) g/dl Hct 34 L (42-52) % MCV 87 (80-94) fL MCH 28 (27-31) pg MCHC 32 (31-36) g/dl RDW 16 H (10.5-15) % Plt Count 126 L (150-450) 10^3/ul MPV 9 (7.4-10.4) um3 Neut % (Auto) 92.9 H (38-83) % Lymph % (Auto) 4.1 L (25-47) % [place] % (Auto) 2.7 (1-9) % Eos % (Auto) 0 (0-6) % Baso % (Auto) 0.3 (0-2) % Absolute Neuts (auto) 11.4 H (1.5-7.7) 10^3/ul Absolute Lymphs (auto) 0.5 L (1.0-4.8) 10^3/ul Absolute Monos (auto) 0.3 (0-0.8) 10^3/ul Absolute Eos (auto) 0 (0-0.6) 10^3/ul Absolute Basos (auto) 0 (0-0.2) 10^3/ul Absolute Nucleated RBC 0 10^3/ul Nucleated RBC % 0.1 INR (Anticoag Therapy) 1.14 H (0.77-1.02) APTT 30.1 (26.0-36.3) seconds Sodium 140 (133-145) mmol/L Potassium 5.0 (3.5-5.0) mmol/L Chloride 98 L (101-111) mmol/L Carbon Dioxide 34 H (22-32) mmol/L Anion Gap 8 (2-11) mmol/L BUN 51 H (6-24) mg/dL Creatinine 1.41 H (0.67-1.17) mg/dL Est GFR ( Amer) 63.0 (>60) Est GFR (Non-Af Amer) 49.0 (>60) BUN/Creatinine Ratio 36.2 H (8-20) Glucose 333 H (70-100) mg/dL Calcium 7.8 L (8.6-10.3) mg/dL Total Bilirubin 1.40 H (0.2-1.0) mg/dL AST 15 (13-39) U/L ALT 29 (7-52) U/L Alkaline Phosphatase 82 (34-104) U/L Troponin I 0.04 H* (<0.04) ng/mL B-Natriuretic Peptide ( - 100) pg/mL Total Protein 5.9 L (6.4-8.9) g/dL Albumin 3.3 (3.2-5.2) g/dL Globulin 2.6 (2-4) g/dL Albumin/Globulin Ratio 1.3 (1-3) 10/26/17 Range/Units 03:30 WBC (3.5-10.8) 10^3/ul RBC (4.0-5.4) 10^6/ul Hgb (14.0-18.0) g/dl Hct (42-52) % MCV (80-94) fL MCH (27-31) pg MCHC (31-36) g/dl RDW (10.5-15) % Plt Count (150-450) 10^3/ul MPV (7.4-10.4) um3 Neut % (Auto) (38-83) % Lymph % (Auto) (25-47) % [place] % (Auto) (1-9) % Eos % (Auto) (0-6) % Baso % (Auto) (0-2) % Absolute Neuts (auto) (1.5-7.7) 10^3/ul Absolute Lymphs (auto) (1.0-4.8) 10^3/ul Absolute Monos (auto) (0-0.8) 10^3/ul Absolute Eos (auto) (0-0.6) 10^3/ul Absolute Basos (auto) (0-0.2) 10^3/ul Absolute Nucleated RBC 10^3/ul Nucleated RBC % INR (Anticoag Therapy) (0.77-1.02) APTT (26.0-36.3) seconds Sodium (133-145) mmol/L Potassium (3.5-5.0) mmol/L Chloride (101-111) mmol/L Carbon Dioxide (22-32) mmol/L Anion Gap (2-11) mmol/L BUN (6-24) mg/dL Creatinine (0.67-1.17) mg/dL Est GFR ( Amer) (>60) Est GFR (Non-Af Amer) (>60) BUN/Creatinine Ratio (8-20) Glucose (70-100) mg/dL Calcium (8.6-10.3) mg/dL Total Bilirubin (0.2-1.0) mg/dL AST (13-39) U/L ALT (7-52) U/L Alkaline Phosphatase (34-104) U/L Troponin I (<0.04) ng/mL B-Natriuretic Peptide 326 H ( - 100) pg/mL Total Protein (6.4-8.9) g/dL Albumin (3.2-5.2) g/dL Globulin (2-4) g/dL Albumin/Globulin Ratio (1-3) Result Diagrams: 10/26/17 03:30 10/26/17 03:30 Lab Statement: Any lab studies that have been ordered have been reviewed, and results considered in the medical decision making process. - Radiology CXR Radiology Interpretation Completed By: ED Physician - interstitial CHF - EKG 0408 Cardiac Rate: NL EKG Rhythm: Atrial Fibrillation - at 80 BPM EKG Interpretation: non specific t wave changes Course/Dx - Course Assessment/Plan: This patient is a 77 year old M presenting [facility] accompanied by his with a chief complaint of SOB 10-23-17. Patient reports sore throat. Patient denies fever. Pt was recently admitted and released last week but after 3 days he began to become SOB. Hx of COPD, CHF, and use O2 at home. An EKG reveals afib at 80 non specific t wave changes. CXR reveals interstitial CHF. Test results with no significant abnormalities except for a troponin of .04. In the ED course the patient was given Albuterol, Lasix, duoneb, insulin, and solu-medrol. Dx COPD and CHF. We discussed patient care with Dr. Robb and they accepted the patient for admittance. Patient will be admitted [place] [facility] with follow up from Dr. Robb. The patient is agreeable with this plan. - Diagnoses Provider Diagnoses: COPD (chronic obstructive pulmonary disease), CHF (congestive heart failure) - Physician Notifications Discussed Care of Patient With: Daisha Robb Time Discussed With Above Provider: 05:51 Instructed by Provider To: Admit As Inpatient Discharge - Discharge Plan Condition: Fair Disposition: ADMITTED TO [facility] Referrals: Santiago Harris, FIRER HELPER [Primary Care Provider] - The documentation as recorded by the Charly calderón Gabriel accurately reflects the service I personally performed and the decisions made by me, Shanti Lozano MD.
--- NOTE | 2017-10-26 07:55 | RAD ---
INDICATION: Difficulty breathing COMPARISON: Chest x-ray October 08, 2017 TECHNIQUE: Single AP portable view of the chest was obtained. FINDINGS: Image quality is compromised due to the relative inferiority of a portable chest x-ray. There is mild cardiomegaly. Densities obscuring the right greater than left lung bases. The pulmonary vasculature is engorged and indistinct. Visualized bones are normal for the patient's age. IMPRESSION: Chest x-ray findings are most indicative of cardiogenic pulmonary edema with right greater than left pleural effusions.
[2017-10-26] MEDS ORDERED: Acetaminophen TAB* 325 MG PO PRN (08:00)
[2017-10-26] MEDS ORDERED: Dextrose 50% Syringe 50 ML* 25 GM/50 ML SYRINGE IV PUSH PRN (08:19)
[2017-10-26] MEDS ORDERED: Spiriva Inhaler DEVICE* 1 EACH DEVICE INH ONE (09:00)
[2017-10-26 09:03] LABS: Urine Appearance Clear; Urine Blood Negative (Negative); Urine Color Yellow; Urine Ketones Negative (Negative); Urine Protein 2+(100 mg/dL) (Negative); Urine Specific Gravity 1.009 (1.010-1.030); Urine Urobilinogen Negative (Negative)
[2017-10-26] MEDS: Aspirin EC Low Dose* 81 MG TAB.EC PO SCH (10:02)
[2017-10-26] MEDS: Metoprolol Succinate XL TAB* 50 MG PO SCH (10:02)
[2017-10-26] MEDS: predniSONE TAB* 20 MG PO SCH (10:02)
[2017-10-26] MEDS: Furosemide IV* 10 MG/ML VIAL (40 MG) IV SCH ×2 (10:02→20:23)
[2017-10-26] MEDS: Tiotropium CAP.INH* CAP.INH/18 MCG (USE ORDER SET !) INH SCH (10:05)
[2017-10-26] MEDS: Apixaban* 5 MG TAB PO SCH ×2 (11:05→20:24)
[2017-10-26] MEDS: Insulin LISPRO* 1 UNITS UNIT SUBCUT SCH ×3 (12:19→20:45)
--- NOTE | 2017-10-26 13:11 | HP ---
CC: Dr. Anderson * HISTORY AND PHYSICAL: DATE OF ADMISSION: 10/26/17 CHIEF COMPLAINT: Shortness of breath. HISTORY OF PRESENT ILLNESS: This is a 77-year-old man with history of end- stage COPD and diastolic heart failure, presenting with 3 days of worsening shortness of breath, dyspnea on exertion, a wet cough, and "congestion." His , Ra is in the room and also notes some worsening confusion and forgetfulness over the past week. Mr. Story was recently admitted to the hospital on 10/08/17 through 10/13/17 for decompensated heart failure, at which time he was evaluated by hospice and was recommended for home hospice, which he and his agreed to. However, prior to his discharge, Mr. Story changed his mind and requested more time to think about whether he would like to go to hospice. His today, however, reports that [facility] and they met with the palliative care nurse this week. Still Mr. Story says he wants to be admitted because he wants to feel better and he is not ready to . His also expresses concern over Mr. Story' management of his own medications. She believes that he doubled the doses yesterday because he had forgotten that he already took them. His dyspnea on exertion has worsened over the past 3 days. On a good day, he is able to walk 10 to 15 feet before becoming short of breath and since Tuesday, he is unable to walk 3 feet without needing to stop to breathe. When asked about orthopnea, he and his reported that he does not sleep at all even sitting up in bed and in the recliner. They have been unable to weigh him due to his inability to walk to the scale, but they do believe that he has gained weight since his discharge despite adherence with his discharge medications. PAST MEDICAL HISTORY: Chronic hypoxic respiratory failure, on 3 L of home O2 continuously; diastolic heart failure; CKD 3; hypertension; AFib, on anticoagulation; bioprosthetic aortic valve; ANA; and pulmonary hypertension. HOME MEDICATIONS: This is based on his discharge from 10/13/17: 1. Prednisone taper, he is currently taking 20 mg daily. 2. Symbicort 2 puffs b.i.d. 3. Albuterol 2 puffs q.4 p.r.n. 4. Albuterol nebulizer q.4 p.r.n. 5. Atorvastatin 40 mg daily. 6. Aspirin 81 mg daily. 7. Apixaban 5 mg b.i.d. 8. Metoprolol 50 mg daily. 9. Furosemide 40 mg b.i.d. 10. Tiotropium 1 cap inhaled daily. SOCIAL HISTORY: He is living at home with his . He is a former smoker. He does not drink or use illicit drugs. REVIEW OF SYSTEMS: As above. The remainder of the review of systems is negative. PHYSICAL EXAMINATION GENERAL: Sleepy, but in no distress, arousable to voice, able to speak in full sentences. VITAL SIGNS: Blood pressure 132/77, heart rate 87, respiratory rate 25, pulse ox 99% on 4 L. HEENT: Pupils equal, round and reactive to light. No pharyngeal exudates or erythema. NECK: JVP at the angle of the mandible. No adenopathy. LUNGS: With few crackles at the bases. No wheezes or rhonchi. CHEST: Regular rate and rhythm. PMI is largely displaced. No murmurs. ABDOMEN: Soft, nontender, and nondistended. A ventral hernia at the umbilicus is reducible. EXTREMITIES: 1+ lower extremity edema bilaterally. Strength is 5+ throughout. DIAGNOSTIC STUDIES/LAB DATA: White blood cells 12.3 from 17 at last discharge , hemoglobin 11.1, platelets 126. Sodium 140, potassium 5.0, chloride 98, bicarb 34, BUN 51, creatinine 1.41, glucose 333. Troponin 0.04. His chest x-ray today shows right-sided pleural effusion with increased vascular congestion. An EKG has AFib at 80 with normal axis, normal intervals, Q-waves V2 through V4, and T-wave flattening inferiorly. ASSESSMENT AND PLAN: This is a 77-year-old man with end-stage chronic obstructive pulmonary disease and diastolic heart failure, presenting with worsening dyspnea on exertion, shortness of breath who is in the process of being evaluated for hospice. 1. Volume overload. I believe that pulmonary edema and volume overload is most likely contributing to his dyspnea at this point. We do not have weights due to his inability to walk to the scale; however, these would be helpful. I am switching his p.o. Lasix to 40 mg IV b.i.d. to attempt diuresis. The etiology of his decompensation is unclear as he does not eat or drink much according to his ; however, his chest x-ray has clear evidence of volume overload and his physical exam suggests elevated central venous pressure. 2. Acute on chronic hypercapnic respiratory failure. While I do not have an ABG from this morning, his bicarb on his BMP suggest chronic hypercapnia and the history from his of increasing confusion and drowsiness suggests worsening hypercapnia. He is currently being evaluated for a BiPAP at home; however, this is not consistent with his current plan for hospice evaluation. This needs to be discussed further as it appears occasionally that he wants to get better and does not want to consider hospice yet at other times agrees and supports the decision towards palliation. For now, he has no need for BiPAP, though I think it may help him overnight, so I will order it q.h.s. 3. Acute on chronic hypoxic respiratory failure. Again, I do believe this is more likely related to volume than chronic obstructive pulmonary disease exacerbation at this point; however, he does also have end-stage chronic obstructive pulmonary disease and wears 3 L continuously. I am continuing his albuterol inhaler, Spiriva, and fluticasone. 4. Chronic kidney disease. His renal function is at baseline and improved since last admission. 5. Leukocytosis. I suspect this is most likely related to his prednisone taper. He does not have any infectious symptoms to me; however, given the season and his presentation, we will check a sputum and a flu swab. 6. Diabetes. His last A1c was 7.4. They report that this is diet controlled; however, it appears that on the prednisone, his blood glucose has been poorly controlled. We will start on insulin sliding scale. 7. Elevated troponin. He may have underlying coronary artery disease as he does have ischemic changes on his EKG; however, they are not new or dynamic and I suspect that his mildly elevated troponin is a type 2 demand related issue. Continue aspirin, beta-kadny, and statin. 8. Atrial fibrillation. He is in atrial fibrillation. It is rate controlled with metoprolol and he is anticoagulated with apixaban. 9. DVT prophylaxis. Not indicated due to therapeutic anticoagulation. 10. Diet. Carb control. 11. Code status. I did discuss his code status with him and his . He would like to be DNR and DNI. 12. Disposition. Admit to inpatient under the hospitalist service. [id number]/[facility] #: [id number] [facility]
[2017-10-26] MEDS: Atorvastatin* 40 MG TAB PO SCH (20:24)
[2017-10-27 06:15] LABS: ABS Basophils 0 10^3/ul (0-0.2); ABS Eosinophils 0 10^3/ul (0-0.6); ABS Lymphocytes 0.8 10^3/ul (1.0-4.8); ABS Monocytes 0.7 10^3/ul (0-0.8); ABS Neutrophils 10.9 10^3/ul (1.5-7.7); ABS Nucleated RBC 0 10^3/ul; Eosinophil % 0 % (0-6); Hematocrit 31 % (42-52); Hemoglobin 10.2 g/dl (14.0-18.0); Lymphocyte % 6.3 % (25-47); Mean Corpuscular HGB Conc 33 g/dl (31-36); Mean Corpuscular Hemoglobin 28 pg (27-31); Mean Corpuscular Volume 86 fL (80-94); Mean Platelet Volume 9 um3 (7.4-10.4); Nucleated Red Blood Cells % 0; Platelet Count 111 10^3/ul (150-450); Red Blood Count 3.58 10^6/ul (4.0-5.4); Red Cell Distribution Width 16 % (10.5-15); White Blood Count 12.4 10^3/ul (3.5-10.8)
[2017-10-27 06:28] LABS: EGFR Non-African American 41.5 (>60)
[2017-10-27] MEDS: Tiotropium CAP.INH* CAP.INH/18 MCG (USE ORDER SET !) INH SCH (08:17)
[2017-10-27] MEDS: Aspirin EC Low Dose* 81 MG TAB.EC PO SCH (08:50)
[2017-10-27] MEDS: predniSONE TAB* 20 MG PO SCH (08:50)
[2017-10-27] MEDS: Furosemide IV* 10 MG/ML VIAL (40 MG) IV SCH ×2 (08:50→21:02)
[2017-10-27] MEDS: Metoprolol Succinate XL TAB* 50 MG PO SCH (08:50)
[2017-10-27] MEDS: Apixaban* 5 MG TAB PO SCH ×2 (08:50→21:01)
[2017-10-27] MEDS: Insulin LISPRO* 1 UNITS UNIT SUBCUT SCH ×4 (08:51→21:01)
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
[2017-10-27] MEDS: Atorvastatin* 40 MG TAB PO SCH (21:01)
[2017-10-27] MEDS: Albuterol/Ipratropium NEB.SOL* Albuterol 2.5 MG/Ipratropium 0.5 MG 3 ML INH PRN (21:14)
[2017-10-28] MEDS: Tiotropium CAP.INH* CAP.INH/18 MCG (USE ORDER SET !) INH SCH (07:55)
[2017-10-28] MEDS: Insulin LISPRO* 1 UNITS UNIT SUBCUT SCH ×4 (08:04→22:57)
[2017-10-28] MEDS: Metoprolol Succinate XL TAB* 50 MG PO SCH (08:12)
[2017-10-28] MEDS: Apixaban* 5 MG TAB PO SCH ×2 (08:12→22:56)
[2017-10-28] MEDS: Aspirin EC Low Dose* 81 MG TAB.EC PO SCH (08:12)
[2017-10-28] MEDS: predniSONE TAB* 20 MG PO SCH (08:12)
[2017-10-28] MEDS: Furosemide IV* 10 MG/ML VIAL (40 MG) IV SCH ×2 (08:12→22:57)
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
[2017-10-28] MEDS: Budesonide NEB* 0.5 MG/2 ML NEB.SOLN INH SCH (19:14)
[2017-10-28] MEDS: Atorvastatin* 40 MG TAB PO SCH (22:56)
[2017-10-29] MEDS: Budesonide NEB* 0.5 MG/2 ML NEB.SOLN INH SCH ×2 (07:19→20:43)
[2017-10-29] MEDS: Tiotropium CAP.INH* CAP.INH/18 MCG (USE ORDER SET !) INH SCH (07:20)
[2017-10-29] MEDS: Furosemide IV* 10 MG/ML VIAL (40 MG) IV SCH (08:23)
[2017-10-29] MEDS: Apixaban* 5 MG TAB PO SCH ×2 (08:23→19:44)
[2017-10-29] MEDS: Aspirin EC Low Dose* 81 MG TAB.EC PO SCH (08:23)
[2017-10-29] MEDS: Metoprolol Succinate XL TAB* 50 MG PO SCH (08:24)
[2017-10-29] MEDS: Insulin LISPRO* 1 UNITS UNIT SUBCUT SCH ×4 (08:24→21:21)
[2017-10-29] MEDS ORDERED: predniSONE TAB* 10 MG PO SCH (09:00)
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
[2017-10-29 17:00] LABS: EGFR Non-African American 45.3 (>60)
[2017-10-29] MEDS: Atorvastatin* 40 MG TAB PO SCH (19:44)
[2017-10-29] MEDS: Albuterol/Ipratropium NEB.SOL* Albuterol 2.5 MG/Ipratropium 0.5 MG 3 ML INH PRN (20:45)
[2017-10-30] MEDS: Insulin LISPRO* 1 UNITS UNIT SUBCUT SCH ×4 (08:23→20:44)
[2017-10-30] MEDS: Aspirin EC Low Dose* 81 MG TAB.EC PO SCH (08:23)
[2017-10-30] MEDS: Metoprolol Succinate XL TAB* 50 MG PO SCH (08:23)
[2017-10-30] MEDS: Torsemide TAB* 20 MG PO SCH (08:24)
[2017-10-30] MEDS: Apixaban* 5 MG TAB PO SCH ×2 (08:25→20:43)
[2017-10-30] MEDS ORDERED: predniSONE TAB* 10 MG PO SCH (09:00)
[2017-10-30] MEDS: Budesonide NEB* 0.5 MG/2 ML NEB.SOLN INH SCH ×2 (09:01→21:01)
[2017-10-30] MEDS: Tiotropium CAP.INH* CAP.INH/18 MCG (USE ORDER SET !) INH SCH (09:06)
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
[2017-10-30] MEDS: predniSONE TAB* 10 MG PO ONE ×2 (11:25)
[2017-10-30] MEDS: Atorvastatin* 40 MG TAB PO SCH (20:43)
[2017-10-30] MEDS: Albuterol/Ipratropium NEB.SOL* Albuterol 2.5 MG/Ipratropium 0.5 MG 3 ML INH PRN (21:01)
[2017-10-31 00:56] VITALS: BP 152/53
[2017-10-31 06:20] LABS: EGFR Non-African American 52.4 (>60)
[2017-10-31] MEDS: Budesonide NEB* 0.5 MG/2 ML NEB.SOLN INH SCH (07:54)
[2017-10-31] MEDS: Tiotropium CAP.INH* CAP.INH/18 MCG (USE ORDER SET !) INH SCH (07:54)
[2017-10-31] MEDS: Insulin LISPRO* 1 UNITS UNIT SUBCUT SCH ×2 (08:29→12:40)
[2017-10-31] MEDS: Metoprolol Succinate XL TAB* 50 MG PO SCH (08:29)
[2017-10-31] MEDS: Torsemide TAB* 20 MG PO SCH (08:29)
[2017-10-31] MEDS: Aspirin EC Low Dose* 81 MG TAB.EC PO SCH (08:29)
[2017-10-31] MEDS: Apixaban* 5 MG TAB PO SCH (08:29)
[2017-10-31] MEDS ORDERED: predniSONE TAB* 20 MG PO ONE (09:00)
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
== END 2017-10-31 15:28 | disposition home or self-care (01) | DRG 291 ==
LOC: ED 03:03 → MEDTELE 09:21
PROVIDERS: ADMIT Internal Medicine; ATTEND Internal Medicine
PROC: 5A09457 Assistance with Respiratory Ventilation, 24-96 Consecutive Hours, Continuous Positive Airway Pressure (ICD-10-PCS; principal; 2017-10-26)
DX: I50.33 Acute on chronic diastolic (congestive) heart failure (principal); J96.02 Acute respiratory failure with hypercapnia; J96.21 Acute and chronic respiratory failure with hypoxia; I13.0 Hypertensive heart and chronic kidney disease with heart failure and stage 1 through stage 4 chronic kidney disease, or unspecified chronic kidney disease; J44.1 Chronic obstructive pulmonary disease with (acute) exacerbation; E11.22 Type 2 diabetes mellitus with diabetic chronic kidney disease; I27.20 Pulmonary hypertension, unspecified; I48.91 Unspecified atrial fibrillation; N18.3 Chronic kidney disease, stage 3 (moderate); G47.33 Obstructive sleep apnea (adult) (pediatric); R74.8 Abnormal levels of other serum enzymes; Z99.81 Dependence on supplemental oxygen; Z79.01 Long term (current) use of anticoagulants; Z95.2 Presence of prosthetic heart valve; Z79.82 Long term (current) use of aspirin; Z79.52 Long term (current) use of systemic steroids; Z79.899 Other long term (current) drug therapy; Z87.891 Personal history of nicotine dependence
CPT/HCPCS: 36415; 71045; 80048; 80053; 81003; 81015; 82947; 83036; 83735; 83880; 84484; 85025; 85610; 85730; 87086; 87502; 87641; 93005; 94640; 94660; 94760; 99284; A9270-GY; J1940; J2930; J3475; J7512